=== PATIENT | female | born 1970 | race African-American/Black ===

== ENCOUNTER 2017-09-02 02:25 | Inpatient (IN) | payer MEDICAID, OTHER ==
[2017-09-02] VITALS (7 sets, daily range): BP systolic 127–171; BP diastolic 66–80
[~2017-09-02] VITALS: Ht 157.5 cm; Wt 79.4 kg
[~2017-09-02 02:25] MED LIST: ALBUTEROL INHAL ORI; AMBIEN; ATENOLOL; BENADRYL; GLUCOMETER; HYDR-523 PO; INSU3INS6; METF500T4 PO; NOVOFINE; PARO-41 PO; PREVACID PO; SITA100T11; SULF-165 PO; VENTOLIN; ZOLP10TA6
[2017-09-02 04:02] LABS: BASOPHILS % 0.5 % (0.0-2.0); EOSINOPHILS % 0.3 % (0.0-5.0); HEMATOCRIT. 33.2 % (36.0-48.0); HEMOGLOBIN. 10.8 g/dL (12.0-16.0); LYMPHOCYTES % 18.7 % (20.0-50.0); MEAN CORPUSCULAR HEMOGLOBIN 24.6 pg (28.0-32.0); MEAN CORPUSCULAR VOLUME 75.7 fL (81.0-99.0); MEAN PLATELET VOLUME 7.3 fl (7.4-10.4); MONOCYTES % 6.4 % (2.0-8.0); NEUTROPHILS % 74.1 % (40.0-76.0); PLATELET 311 x1000/uL (130-400); RED BLOOD CELL COUNT 4.39 mill/uL (4.2-5.4); RED CELL DISTRIBUTION WIDTH 17.9 % (11.6-14.6)
[2017-09-02 04:19] LABS: CARBON DIOXIDE 27 mEq/L (21-32); CHLORIDE 88 mEq/L (98-107); TROPONIN I < 0.02 ng/mL (0.00-0.04)
[2017-09-02 05:26] LABS: CLARITY URINE CLEAR (CLEAR); COLOR URINE YELLOW (YELLOW); GLUCOSE URINE NEGATIVE (NEGATIVE); KETONES URINE NEGATIVE (NEGATIVE); LEUKOCYTE ESTERASE URINE NEGATIVE (NEGATIVE); NITRITE URINE NEGATIVE (NEGATIVE); OCCULT BLOOD URINE 1+ (NEGATIVE); PROTEIN URINE 1+ (NEGATIVE); UROBILINOGEN URINE 0.2 E.U./dL (0.2-1.0)
[2017-09-02 05:34] LABS: BG BASE EXCESS 1.2 mmol/L (-2.0-2.0); BG CARBOXYHEMOGLOBIN 1.5 % (0.5-1.5); BG DEOXYHEMOGLOBIN 5.2 % (0.0-5.0); BG FRACTION INSPIRED OXYGEN 21; BG HCO3 ACT 25.9 mmol/L (22.0-26.0); BG METHEMOGLOBIN 0.3 % (0.0-1.5); BG OXYGEN SATURATION 94.7 % (92.0-98.5); BG PCO2 41.6 mmHg (35.0-45.0); BG PH 7.412 (7.350-7.450); BG PO2 80.6 mmHg (75.0-100.0); BG SAMPLE SITE RIGHT BRACHIAL; BG TOTAL HEMOGLOBIN 10.8 g/dL (12.0-18.0); BG VENT MODE ROOM AIR
[2017-09-02] MEDS ORDERED: ONDANSETRON HCL 4MG/2ML VIAL IV STA (05:46)
[2017-09-02] MEDS ORDERED: MORPHINE SULFATE 4 MG/ML CPJ (NOT FOR IM USE) IV STA (05:46)
[2017-09-02] MEDS ORDERED: MORPHINE SULFATE 10 MG/ML CPJ IV SCH (06:03)
[2017-09-02] MEDS ORDERED: LANTUSUD SUBCUT (09:36)
[2017-09-02] MEDS ORDERED: PARO40TA75 PO (09:36)
[2017-09-02] MEDS ORDERED: ZOLP10TA6 PO (09:36)
[2017-09-02] MEDS ORDERED: DIPH25CA83 PO (09:36)
[2017-09-02] MEDS ORDERED: LISI10TA5 PO (09:36)
[2017-09-02] MEDS ORDERED: AMLO10TA80 PO (09:36)
[2017-09-02] MEDS ORDERED: DEXTROSE 50% WATER 50ML SYRINGE IV PRN (10:00)
[2017-09-02] MEDS ORDERED: IPRATROPIUM/ALBUTEROL 0.5-3(2.5)MG/3ML NEB HHN PRN (10:00)
[2017-09-02] MEDS ORDERED: DEXT 5%/0.9% NACL 1,000 ML IV SCH (11:00)
[2017-09-02] MEDS: ENOXAPARIN 40MG/0.4ML SYR SUBCUT SCH (12:10)
[2017-09-02] MEDS ORDERED: BLOOD SUGAR DIAGNOSTIC STRIP TEST SCH ×2 (12:20→14:00)
[2017-09-02] MEDS: INSULIN LISPRO 100 UNITS/ML SUBCUT SCH ×3 (12:39→20:56)
[2017-09-02] MEDS ORDERED: LISINOPRIL 10MG TABLET PO SCH (13:00)
[2017-09-02] MEDS ORDERED: SODIUM CHLORIDE 0.9% 1,000 ML IV ONE (13:30)
[2017-09-02] MEDS ORDERED: DIPHENHYDRAMINE 25MG CAPSULE PO PRN (14:00)
[2017-09-02] MEDS ORDERED: ZOLPIDEM TARTRATE 5MG TABLET PO PRN (14:15)
[2017-09-02] MEDS: PAROXETINE HCL 20MG TABLET PO SCH (14:33)
[2017-09-02] MEDS: AMLODIPINE 5MG TABLET PO SCH ×2 (14:33→20:54)
[2017-09-02] MEDS: OMEPRAZOLE 20MG CAPSULE EXTENDED RELEASE PO SCH ×2 (14:36→20:54)
[2017-09-02] MEDS ORDERED: CLONIDINE 0.1MG TABLET PO PRN (15:00)
[2017-09-02] MEDS ORDERED: HYDROCODONE/ACETAMINOPHEN 10/325MG TABLET PO PRN (15:45)
[2017-09-02] MEDS: MORPHINE SULFATE 10 MG/ML CPJ IV PRN (15:49)
[2017-09-02] MEDS: BLOOD SUGAR DIAGNOSTIC STRIP TEST SCH ×2 (17:02→20:56)
[2017-09-02 18:18] LABS: CREATINE KINASE 111 IU/L (26-192); CREATINE KINASE MB FRACTION 2.2 ng/mL (0.5-3.6); TROPONIN I < 0.02 ng/mL (0.00-0.04)
[2017-09-02 19:09] LABS: *AMPHETAMINES SCREEN URINE NEGATIVE (NEGATIVE); *BARBITURATES SCREEN URINE NEGATIVE (NEGATIVE); *BENZODIAZEPINES SCREEN URINE NEGATIVE (NEGATIVE); *COCAINE SCREEN URINE NEGATIVE (NEGATIVE); CANNABINOID URINE SCREEN NEGATIVE (NEGATIVE); METHADONE URINE SCREEN NEGATIVE (NEGATIVE); PHENCYCLIDINE URINE SCREEN NEGATIVE (NEGATIVE)
[2017-09-02 19:14] LABS: OPIATES URINE SCREEN PRESUMTIVE POSITIVE (NEGATIVE)
[2017-09-02] MEDS: LISINOPRIL 20MG TABLET PO SCH (20:55)
[2017-09-02 23:49] LABS: CREATINE KINASE 102 IU/L (26-192); TROPONIN I < 0.02 ng/mL (0.00-0.04)
[2017-09-03] VITALS: BP 118/58
[2017-09-03] MEDS: MORPHINE SULFATE 10 MG/ML CPJ IV PRN (00:31)
[2017-09-03 04:00] VITALS: BP 123/66
[2017-09-03] MEDS: OMEPRAZOLE 20MG CAPSULE EXTENDED RELEASE PO SCH (06:17)
[2017-09-03] MEDS: BLOOD SUGAR DIAGNOSTIC STRIP TEST SCH ×2 (06:50→12:40)
[2017-09-03] MEDS ORDERED: REGADENOSON 0.4 MG/5 ML IV SCH (07:45)
[2017-09-03 08:00] VITALS: BP 115/56
[2017-09-03] MEDS ORDERED: REGADENOSON 0.4 MG/5 ML IV ONE (08:52)
[2017-09-03] MEDS: INSULIN LISPRO 100 UNITS/ML SUBCUT SCH ×2 (10:42→12:57)
[2017-09-03] MEDS: ENOXAPARIN 40MG/0.4ML SYR SUBCUT SCH (10:42)
[2017-09-03] MEDS: PAROXETINE HCL 20MG TABLET PO SCH (10:42)
[2017-09-03] MEDS: AMLODIPINE 5MG TABLET PO SCH (10:43)
[2017-09-03] MEDS: LISINOPRIL 20MG TABLET PO SCH (10:43)
[2017-09-03 12:00] VITALS: BP_SYST 129; BP_SYST 133; BP_SYST 134; BP_DIAS 59; BP_DIAS 66; BP_DIAS 69
[2017-09-03 16:00] VITALS: BP 162/80
[2017-09-03 17:19] VITALS: BP 134/66
== END 2017-09-03 19:30 | disposition home or self-care (01) | DRG 420 ==
LOC: ER 02:25 → 6WST 05:35 → EDBEDREQTM 05:37 → EDBEDREQ 05:37 → ENRESERV 07:00 → 6WST 10:36
PROVIDERS: ADMIT Internal Medicine; ATTEND Internal Medicine
DX: E11.649 Type 2 diabetes mellitus with hypoglycemia without coma (principal); I10 Essential (primary) hypertension; E87.1 Hypo-osmolality and hyponatremia; D50.9 Iron deficiency anemia, unspecified; F17.200 Nicotine dependence, unspecified, uncomplicated; B34.9 Viral infection, unspecified; F32.9 Major depressive disorder, single episode, unspecified; I25.10 Atherosclerotic heart disease of native coronary artery without angina pectoris; E86.0 Dehydration; G47.00 Insomnia, unspecified; Z79.899 Other long term (current) drug therapy; Z81.8 Family history of other mental and behavioral disorders; I25.2 Old myocardial infarction; Z82.49 Family history of ischemic heart disease and other diseases of the circulatory system; Z83.3 Family history of diabetes mellitus; Z91.010 Allergy to peanuts; Z91.018 Allergy to other foods
CPT/HCPCS: 36415; 36600; 70450; 71010; 72100; 72125; 78452; 80053; 80061; 80305; 81001; 82375; 82550; 82553; 82805; 82962; 83036; 83605; 84443; 84484; 85025; 93005; 93017; 93880; 93970; 96374; 96375; 99285; A9500; J1650; J1815; J2270; J2405; J2785; J7030; J7042

== ENCOUNTER 2018-08-31 21:38 | Inpatient (IN) | payer MEDICAID, OTHER ==
[~2018-08-31] VITALS: Ht 162.6 cm; Wt 69.0 kg
[~2018-08-31 21:38] MED LIST changes: -ALBUTEROL INHAL ORI; -AMBIEN; -ATENOLOL; -BENADRYL; +DIPH25CA83 PO; -GLUCOMETER; -HYDR-523 PO; -INSU3INS6; +LANTUSUD SUBCUT; -METF500T4 PO; -NOVOFINE; -PARO-41 PO; +PARO40TA75 PO; -PREVACID PO; -SITA100T11; -SULF-165 PO; -VENTOLIN; -ZOLP10TA6; +ZOLP10TA6 PO
[2018-08-31] MEDS ORDERED: DEXTROSE 50% WATER 50ML SYRINGE IV ONE ×2 (22:15→22:30)
[2018-08-31 23:31] LABS: BG BASE EXCESS 6.4 mmol/L (-2.0-2.0); BG CARBOXYHEMOGLOBIN 1.7 % (0.5-1.5); BG DEOXYHEMOGLOBIN 9.5 % (0.0-5.0); BG FRACTION INSPIRED OXYGEN 21; BG METHEMOGLOBIN 0.3 % (0.0-1.5); BG OXYGEN SATURATION 90.3 % (92.0-98.5); BG OXYHEMOGLOBIN 88.5 % (94.0-97.0); BG PCO2 44.7 mmHg (35.0-45.0); BG PH 7.459 (7.350-7.450); BG PO2 64.5 mmHg (75.0-100.0); BG SAMPLE SITE RIGHT RADIAL; BG TOTAL HEMOGLOBIN 12.5 g/dL (12.0-18.0); BG VENT MODE ROOM AIR
[2018-09-01 00:15] LABS: HEMATOCRIT. 34.1 % (36.0-48.0); HEMOGLOBIN. 11.4 g/dL (12.0-16.0); MEAN CORPUSCULAR HEMOGLOBIN 28.1 pg (28.0-32.0); MEAN CORPUSCULAR VOLUME 84.1 fL (81.0-99.0); MEAN PLATELET VOLUME 7.7 fl (7.4-10.4); PLATELET 412 x1000/uL (130-400); RED BLOOD CELL COUNT 4.05 mill/uL (4.2-5.4); RED CELL DISTRIBUTION WIDTH 14.8 % (11.6-14.6)
[2018-09-01 00:32] LABS: AMMONIA 21 uMol/L (<32); CHLORIDE 92 mEq/L (98-107); ETHANOL BLOOD < 10 mg/dL
[2018-09-01] MEDS ORDERED: ONDANSETRON HCL 4MG/2ML INJ IV STA (00:46)
[2018-09-01] MEDS ORDERED: KETOROLAC 30MG/ML VIAL IV STA (00:46)
[2018-09-01 01:35] LABS: CLARITY URINE CLOUDY (CLEAR); COLOR URINE DARK YELLOW (YELLOW); KETONES URINE 1+ (NEGATIVE); LEUKOCYTE ESTERASE URINE TRACE (NEGATIVE); NITRITE URINE NEGATIVE (NEGATIVE); OCCULT BLOOD URINE NEGATIVE (NEGATIVE); PROTEIN URINE 2+ (NEGATIVE); SPECIFIC GRAVITY URINE 1.021 (1.005-1.030)
[2018-09-01] MEDS ORDERED: CEFTRIAXONE 1 G PREMIX 50 ML IV ONE (01:45)
[2018-09-01] MEDS ORDERED: LEVOFLOXACIN 750MG PREMIX 150 ML IV ONE (01:45)
[2018-09-01 02:16] LABS: *AMPHETAMINES SCREEN URINE NEGATIVE (NEGATIVE); *BARBITURATES SCREEN URINE NEGATIVE (NEGATIVE); *BENZODIAZEPINES SCREEN URINE NEGATIVE (NEGATIVE)
[2018-09-01 02:17] LABS: *COCAINE SCREEN URINE NEGATIVE (NEGATIVE); CANNABINOID URINE SCREEN NEGATIVE (NEGATIVE); METHADONE URINE SCREEN NEGATIVE (NEGATIVE); OPIATES URINE SCREEN NEGATIVE (NEGATIVE); PHENCYCLIDINE URINE SCREEN NEGATIVE (NEGATIVE)
[2018-09-01 03:07] LABS: PLATELET ESTIMATE NORMAL
[2018-09-01] MEDS ORDERED: SODIUM CHLORIDE 0.9% 1,000 ML IV SCH (03:24)
[2018-09-01] MEDS ORDERED: SODIUM CHLORIDE 0.9% 1,000 ML IV ONE (03:27)
[2018-09-01] MEDS ORDERED: DEXTROSE 50% WATER 50ML SYRINGE IV ONE (07:43)
[2018-09-01] MEDS ORDERED: INSU100I28 SQ (10:42)
[2018-09-01] MEDS ORDERED: GABA-529 PO (10:42)
[2018-09-01] MEDS ORDERED: LISI10TA5 PO (10:53)
[2018-09-01] MEDS ORDERED: TRAZ-213 PO (10:53)
[2018-09-01] MEDS ORDERED: ZOLP5TAB8 PO (10:53)
[2018-09-01] MEDS ORDERED: LORA10TA7 PO (10:53)
[2018-09-01] MEDS ORDERED: ASPI-1159 PO (10:53)
[2018-09-01] MEDS ORDERED: ALBU18HF2 IH (10:53)
[2018-09-01] MEDS ORDERED: IBUP-2028 PO (10:53)
[2018-09-01] MEDS ORDERED: INSU100I24 SQ (10:53)
[2018-09-01] MEDS ORDERED: RANI150T7 PO (10:53)
[2018-09-01] MEDS ORDERED: OMEP40CA34 PO (10:53)
[2018-09-01] MEDS ORDERED: PARO-41 PO (10:53)
[2018-09-01] MEDS ORDERED: PARO40TA75 PO (10:53)
[2018-09-01] MEDS ORDERED: DEXTROSE 50% WATER 50ML SYRINGE IV PRN (11:45)
[2018-09-01] MEDS ORDERED: ONDANSETRON HCL 4MG/2ML INJ IV PRN (11:45)
[2018-09-01] MEDS ORDERED: ACETAMINOPHEN 325MG TABLET PO PRN (11:45)
[2018-09-01] MEDS ORDERED: DEXTROSE 10% WATER 500 ML IV SCH (12:00)
[2018-09-01 12:02] VITALS: BP 91/54
[2018-09-01] MEDS: BLOOD SUGAR DIAGNOSTIC STRIP TEST SCH ×3 (12:40→21:00)
[2018-09-01] MEDS: HYDROCODONE/ACETAMINOPHEN 5/325MG TABLET PO PRN ×2 (12:58→22:10)
[2018-09-01] MEDS: INSULIN LISPRO 100 UNITS/ML SUBCUT SCH ×3 (13:10→21:00)
[2018-09-01] MEDS ORDERED: INFLUENZA VIRUS VACCINE(AFLURIA) 0.5ML SYR IM ONE (13:30)
[2018-09-01] MEDS ORDERED: POTASSIUM CHLORIDE 20MEQ TABLET SR PO SCH (15:15)
[2018-09-01 16:39] VITALS: BP 85/53
[2018-09-01] MEDS ORDERED: SODIUM CHLORIDE 0.9% 500 ML IV NR (17:45)
[2018-09-01] MEDS: SODIUM CHLORIDE 0.9% 1,000 ML IV SCH (18:24)
[2018-09-01 20:00] VITALS: BP 120/62
[2018-09-01] MEDS ORDERED: ZOLPIDEM TARTRATE 5MG TABLET PO PRN (21:45)
[2018-09-01 22:00] VITALS: BP 117/68
[2018-09-02 04:00] VITALS: BP 126/64
[2018-09-02] MEDS: SODIUM CHLORIDE 0.9% 1,000 ML IV SCH (05:58)
[2018-09-02] MEDS ORDERED: CEFTRIAXONE 1 G PREMIX 50 ML IV SCH (06:00)
[2018-09-02 06:34] LABS: BASOPHILS % 0.7 % (0.0-2.0); EOSINOPHILS % 1.1 % (0.0-5.0); HEMATOCRIT. 30.1 % (36.0-48.0); HEMOGLOBIN. 9.8 g/dL (12.0-16.0); LYMPHOCYTES % 20.3 % (20.0-50.0); MEAN CORPUSCULAR HEMOGLOBIN 28.1 pg (28.0-32.0); MEAN CORPUSCULAR VOLUME 86.1 fL (81.0-99.0); MEAN PLATELET VOLUME 7.9 fl (7.4-10.4); MONOCYTES % 8.6 % (2.0-8.0); NEUTROPHILS % 69.3 % (40.0-76.0); PLATELET 281 x1000/uL (130-400); RED BLOOD CELL COUNT 3.49 mill/uL (4.2-5.4); RED CELL DISTRIBUTION WIDTH 14.9 % (11.6-14.6)
[2018-09-02 07:21] VITALS: BP 143/67
[2018-09-02] MEDS: BLOOD SUGAR DIAGNOSTIC STRIP TEST SCH ×3 (08:38→17:40)
[2018-09-02] MEDS: INSULIN LISPRO 100 UNITS/ML SUBCUT SCH ×3 (09:21→19:07)
[2018-09-02] MEDS: HYDROCODONE/ACETAMINOPHEN 5/325MG TABLET PO PRN ×2 (09:24→17:37)
[2018-09-02 11:47] VITALS: BP 167/87
[2018-09-02 15:24] VITALS: BP 149/70
[2018-09-02 18:31] VITALS: BP 149/70
== END 2018-09-02 21:30 | disposition home health service (06) | DRG 720 ==
LOC: ER 21:38 → 7WST 09-01 03:26 → EDBEDREQTM 09-01 03:32 → EDBEDREQDT 09-01 03:32 → EDBEDREQ 09-01 03:32 → ENRESERV 09-01 08:17
PROVIDERS: ADMIT Internal Medicine; ATTEND Internal Medicine
DX: A41.9 Sepsis, unspecified organism (principal); G93.41 Metabolic encephalopathy; N17.9 Acute kidney failure, unspecified; E11.649 Type 2 diabetes mellitus with hypoglycemia without coma; E87.8 Other disorders of electrolyte and fluid balance, not elsewhere classified; D64.9 Anemia, unspecified; E87.6 Hypokalemia; F17.210 Nicotine dependence, cigarettes, uncomplicated; I10 Essential (primary) hypertension; R29.6 Repeated falls; Z91.010 Allergy to peanuts; Z91.018 Allergy to other foods; Z79.4 Long term (current) use of insulin; Z79.899 Other long term (current) drug therapy
CPT/HCPCS: 36415; 36600; 71045; 72100; 73590; 73630; 74176; 80048; 80305; 80307; 80329; 82140; 82375; 82805; 82962; 83036; 83605; 84145; 84484; 90686; 92610; 93005; 96365; 96367; 96375; 97162; 99291; G0482; J0696; J1815; J1885; J1956; J2405; J7030; J7040

== ENCOUNTER 2020-01-20 17:05 | Inpatient (IN) | payer MEDICAID, OTHER ==
[~2020-01-20] VITALS: Ht 157.5 cm; Wt 80.7 kg
[~2020-01-20 17:05] MED LIST changes: +ALBU18HF2 IH; +AMLO10TA80 MT; +ASPI-1497 PO; +FAMO20TA8 MT; +GABA-529 PO; +INSU100I28 SQ; -LANTUSUD SUBCUT; +LORA10TA7 PO; +OMEP40CA12 PO; +P20 MT; +TRAZ-252 PO
[2020-01-20] MEDS ORDERED: KETOROLAC 60MG/2ML VIAL IM STA (22:36)
[2020-01-20] MEDS ORDERED: IPRATROPIUM BROMIDE (0.02%) 0.5MG/2.5ML NEB HHN STA (22:36)
[2020-01-20] MEDS ORDERED: PREDNISONE 20MG TABLET PO STA (22:36)
[2020-01-20] MEDS ORDERED: ALBUTEROL (0.083%) 2.5MG/3ML NEB HHN STA (22:36)
[2020-01-21] MEDS ORDERED: ALBUTEROL (0.5%) 2.5MG/0.5ML NEB HHN ONE (01:00)
[2020-01-21] MEDS ORDERED: METHYLPREDNISOLONE SOD SUCC 40 MG/ML VIAL IV ONE (01:00)
[2020-01-21 01:27] LABS: BASOPHILS % 0.4 % (0.0-2.0); CHLORIDE 83 mEq/L (98-107); EOSINOPHILS % 1.2 % (0.0-5.0); HEMATOCRIT. 35.8 % (36.0-48.0); HEMOGLOBIN. 11.6 g/dL (12.0-16.0); LYMPHOCYTES % 15.2 % (20.0-50.0); MEAN CORPUSCULAR HEMOGLOBIN 27.7 pg (28.0-32.0); MEAN CORPUSCULAR VOLUME 85.4 fL (81.0-99.0); MONOCYTES % 3.5 % (2.0-8.0); NEUTROPHILS % 79.7 % (40.0-76.0); PLATELET 363 x1000/uL (130-400); RED BLOOD CELL COUNT 4.19 mill/uL (4.2-5.4); RED CELL DISTRIBUTION WIDTH 14.3 % (11.6-14.6)
[2020-01-21] MEDS ORDERED: INSULIN LISPRO 100 UNITS/ML SUBCUT NR (09:00)
[2020-01-21] MEDS ORDERED: IPRATROPIUM/ALBUTEROL 0.5-3(2.5)MG/3ML NEB HHN PRN (09:00)
[2020-01-21] MEDS ORDERED: DEXTROSE 50% WATER 50ML SYRINGE IV PRN (09:00)
[2020-01-21] MEDS ORDERED: METHYLPREDNISOLONE SOD SUCC 40 MG/ML VIAL IV SCH (09:00)
[2020-01-21] MEDS: BLOOD SUGAR DIAGNOSTIC STRIP TEST SCH ×3 (11:15→17:15)
[2020-01-21] MEDS: INSULIN LISPRO 100 UNITS/ML SUBCUT SCH ×5 (11:29→22:40)
[2020-01-21] MEDS ORDERED: IPRATROPIUM/ALBUTEROL 0.5-3(2.5)MG/3ML NEB HHN SCH (12:00)
[2020-01-21] MEDS: KETOROLAC 30MG/ML VIAL IV PRN ×3 (12:28→22:30)
[2020-01-21] MEDS: CLONIDINE 0.1MG TABLET PO PRN (12:28)
[2020-01-21] MEDS: SODIUM CHLORIDE 0.9% 1,000 ML IV SCH (13:26)
[2020-01-21] MEDS: LOSARTAN POTASSIUM 100 MG TABLET PO SCH (13:37)
[2020-01-21] MEDS: AMLODIPINE 5MG TABLET PO SCH ×2 (13:37→21:00)
[2020-01-21] MEDS: IPRATROPIUM/ALBUTEROL 0.5-3(2.5)MG/3ML NEB HHN SCH ×2 (14:51→15:30)
[2020-01-21] MEDS ORDERED: INSULIN GLARGINE UD 100 UNITS/ML SYR SUBCUT SCH (22:00)
[2020-01-21 23:30] VITALS: BP_SYST 170; BP_SYST 172; BP_DIAS 83
[2020-01-22] MEDS: ZOLPIDEM TARTRATE 5MG TABLET PO PRN ×2 (01:07→21:49)
[2020-01-22] MEDS: IPRATROPIUM/ALBUTEROL 0.5-3(2.5)MG/3ML NEB HHN SCH ×5 (01:13→21:56)
[2020-01-22] MEDS: CLONIDINE 0.1MG TABLET PO PRN (01:20)
[2020-01-22] MEDS: INSULIN GLARGINE UD 100 UNITS/ML SYR SUBCUT SCH ×3 (01:21→21:29)
[2020-01-22] MEDS ORDERED: METH-612 PO (02:15)
[2020-01-22] MEDS ORDERED: DICL75TA5 PO (02:15)
[2020-01-22] MEDS ORDERED: CLIN300C11 PO (02:15)
[2020-01-22] MEDS ORDERED: METF-416 PO (02:15)
[2020-01-22] MEDS ORDERED: CYCL10TA7 PO (02:15)
[2020-01-22] MEDS ORDERED: HYDR12.54 PO (02:15)
[2020-01-22] MEDS ORDERED: PARO-66 PO (02:15)
[2020-01-22] MEDS ORDERED: FLUT9.9S BOTHNSTRLS (02:15)
[2020-01-22] MEDS ORDERED: CLINDAMYCIN HCL 300 MG PO SCH (02:30)
[2020-01-22] MEDS ORDERED: METHOCARBAMOL 750MG TABLET PO PRN (03:00)
[2020-01-22 04:00] VITALS: BP 144/75
[2020-01-22] MEDS: CLINDAMYCIN HCL 150MG CAPSULE PO SCH ×3 (05:36→21:26)
[2020-01-22] MEDS: CYCLOBENZAPRINE 10MG TABLET PO SCH ×3 (05:36→21:26)
[2020-01-22] MEDS: SODIUM CHLORIDE 0.9% 1,000 ML IV SCH (05:38)
[2020-01-22 05:51] LABS: CHLORIDE 90 mEq/L (98-107)
[2020-01-22 06:30] LABS: BASOPHILS % 0.2 % (0.0-2.0); HEMATOCRIT. 35.3 % (36.0-48.0); HEMOGLOBIN. 11.8 g/dL (12.0-16.0); LYMPHOCYTES % 16.4 % (20.0-50.0); MEAN CORPUSCULAR VOLUME 83.7 fL (81.0-99.0); MEAN PLATELET VOLUME 8.1 fl (7.4-10.4); MONOCYTES % 7.4 % (2.0-8.0); PLATELET 321 x1000/uL (130-400); RED BLOOD CELL COUNT 4.22 mill/uL (4.2-5.4); RED CELL DISTRIBUTION WIDTH 14.1 % (11.6-14.6)
[2020-01-22] MEDS: BLOOD SUGAR DIAGNOSTIC STRIP TEST SCH ×4 (07:46→21:14)
[2020-01-22 07:50] LABS: CLARITY URINE CLEAR (CLEAR); COLOR URINE YELLOW (YELLOW); KETONES URINE NEGATIVE (NEGATIVE); LEUKOCYTE ESTERASE URINE NEGATIVE (NEGATIVE); NITRITE URINE NEGATIVE (NEGATIVE); OCCULT BLOOD URINE 1+ (NEGATIVE); PH URINE 6.5 (4.5-8.0); PROTEIN URINE 2+ (NEGATIVE); SPECIFIC GRAVITY URINE 1.015 (1.005-1.030); UROBILINOGEN URINE 0.2 E.U./dL (0.2-1.0)
[2020-01-22 08:00] VITALS: BP 141/69
[2020-01-22 08:04] LABS: *AMPHETAMINES SCREEN URINE NEGATIVE (NEGATIVE); *BARBITURATES SCREEN URINE NEGATIVE (NEGATIVE); *BENZODIAZEPINES SCREEN URINE NEGATIVE (NEGATIVE); *COCAINE SCREEN URINE NEGATIVE (NEGATIVE); CANNABINOID URINE SCREEN NEGATIVE (NEGATIVE); METHADONE URINE SCREEN NEGATIVE (NEGATIVE)
[2020-01-22 08:05] LABS: OPIATES URINE SCREEN NEGATIVE (NEGATIVE); PHENCYCLIDINE URINE SCREEN NEGATIVE (NEGATIVE)
[2020-01-22] MEDS: INSULIN LISPRO 100 UNITS/ML SUBCUT SCH ×7 (08:45→21:00)
[2020-01-22] MEDS: ASPIRIN 81MG EC TABLET PO SCH (08:47)
[2020-01-22] MEDS: LORATADINE 10MG TABLET PO SCH (08:47)
[2020-01-22] MEDS: FLUTICASONE PROPIONATE 50MCG/SPRAY BOTTLE BOTHNSTRLS SCH (08:47)
[2020-01-22] MEDS: FAMOTIDINE 20MG/2ML VIAL IV SCH ×2 (08:47→21:28)
[2020-01-22] MEDS: METFORMIN HCL 500MG TABLET PO SCH ×2 (08:47→18:05)
[2020-01-22] MEDS: LOSARTAN POTASSIUM 100 MG TABLET PO SCH (08:54)
[2020-01-22] MEDS: HYDRALAZINE HCL 100MG TABLET PO SCH ×2 (08:55→21:27)
[2020-01-22] MEDS ORDERED: MEDICATION NOT ON FORMULARY EA (Hydrochlorothiazide 12.5 MG) PO SCH (09:00)
[2020-01-22] MEDS ORDERED: MEDICATION NOT ON FORMULARY EA (Fluticasone Propionate (Flonase Allergy Relief) 2 SPR) BOTHNSTRLS SCH (09:00)
[2020-01-22] MEDS ORDERED: MEDICATION NOT ON FORMULARY EA (Paroxetine Hcl 1 TAB) PO SCH (09:00)
[2020-01-22] MEDS: GABAPENTIN 100MG CAPSULE PO SCH ×3 (09:07→18:04)
[2020-01-22] MEDS: HYDROCHLOROTHIAZIDE 12.5MG CAPSULE PO SCH (09:08)
[2020-01-22] MEDS: PAROXETINE HCL 10MG TABLET PO SCH (09:08)
[2020-01-22] MEDS: DICLOFENAC SODIUM 75MG DR (EC) TABLET PO SCH ×2 (09:08→18:05)
[2020-01-22] MEDS: AMLODIPINE 5MG TABLET PO SCH ×2 (09:08→21:27)
[2020-01-22 12:00] VITALS: BP 129/64
[2020-01-22 15:40] VITALS: BP 140/63
[2020-01-22] MEDS ORDERED: CLAR10 PO (16:18)
[2020-01-22] MEDS ORDERED: INSU100I13 SQ (16:18)
[2020-01-22] MEDS ORDERED: INSU100I28 SQ (16:18)
[2020-01-22] MEDS ORDERED: HYDR100T26 PO (16:18)
[2020-01-22] MEDS ORDERED: LOSA100T3 PO (16:18)
[2020-01-22] MEDS ORDERED: MONT10TA21 PO (16:18)
[2020-01-22] MEDS ORDERED: MONTELUKAST SODIUM 10MG TABLET PO SCH (17:00)
[2020-01-22 20:00] VITALS: BP 110/61
[2020-01-22] MEDS ORDERED: TRAZODONE HCL 50MG TABLET PO SCH (21:00)
[2020-01-22] MEDS ORDERED: MEDICATION NOT ON FORMULARY EA (Trazodone Hcl 1 TAB) PO SCH (21:00)
[2020-01-22] MEDS ORDERED: PAROXETINE HCL 10MG TABLET PO SCH (21:00)
[2020-01-22] MEDS ORDERED: PAROXETINE HCL 20 MG PO SCH (21:00)
[2020-01-22] MEDS: KETOROLAC 30MG/ML VIAL IV PRN (21:49)
[2020-01-22] MEDS: BUDESONIDE 0.5MG/2ML NEB HHN SCH (21:50)
[2020-01-23] VITALS: BP 108/65
[2020-01-23] MEDS: IPRATROPIUM/ALBUTEROL 0.5-3(2.5)MG/3ML NEB HHN SCH ×3 (02:40→13:47)
[2020-01-23] MEDS: SODIUM CHLORIDE 0.9% 1,000 ML IV SCH (03:30)
[2020-01-23 04:00] VITALS: BP 171/97
[2020-01-23] MEDS: CLINDAMYCIN HCL 150MG CAPSULE PO SCH (05:51)
[2020-01-23] MEDS: CYCLOBENZAPRINE 10MG TABLET PO SCH (05:51)
[2020-01-23] MEDS: CLONIDINE 0.1MG TABLET PO PRN (06:35)
[2020-01-23] MEDS: BLOOD SUGAR DIAGNOSTIC STRIP TEST SCH ×2 (07:40→12:40)
[2020-01-23] MEDS: INSULIN LISPRO 100 UNITS/ML SUBCUT SCH ×4 (07:40→12:52)
[2020-01-23 08:00] VITALS: BP 135/70
[2020-01-23] MEDS: BUDESONIDE 0.5MG/2ML NEB HHN SCH (08:18)
[2020-01-23] MEDS: DICLOFENAC SODIUM 75MG DR (EC) TABLET PO SCH (08:45)
[2020-01-23] MEDS: HYDRALAZINE HCL 100MG TABLET PO SCH (08:45)
[2020-01-23] MEDS: METFORMIN HCL 500MG TABLET PO SCH (08:45)
[2020-01-23] MEDS: HYDROCHLOROTHIAZIDE 12.5MG CAPSULE PO SCH (08:45)
[2020-01-23] MEDS: LORATADINE 10MG TABLET PO SCH (08:46)
[2020-01-23] MEDS: FAMOTIDINE 20MG/2ML VIAL IV SCH (08:46)
[2020-01-23] MEDS: PAROXETINE HCL 10MG TABLET PO SCH (08:46)
[2020-01-23] MEDS: LOSARTAN POTASSIUM 100 MG TABLET PO SCH (08:46)
[2020-01-23] MEDS: GABAPENTIN 100MG CAPSULE PO SCH (08:46)
[2020-01-23] MEDS: FLUTICASONE PROPIONATE 50MCG/SPRAY BOTTLE BOTHNSTRLS SCH (08:51)
[2020-01-23] MEDS: ASPIRIN 81MG EC TABLET PO SCH (08:51)
[2020-01-23] MEDS: AMLODIPINE 5MG TABLET PO SCH (08:52)
[2020-01-23] MEDS: INSULIN GLARGINE UD 100 UNITS/ML SYR SUBCUT SCH (11:02)
[2020-01-23 12:00] VITALS: BP 115/76
[2020-01-23 12:42] VITALS: BP 115/76
== END 2020-01-23 16:00 | disposition home or self-care (01) | DRG 133 ==
LOC: ER 17:05 → ENRESERV 01-21 20:38 → 7WST 01-21 23:32
PROVIDERS: ADMIT Internal Medicine; ATTEND Internal Medicine
DX: J96.00 Acute respiratory failure, unspecified whether with hypoxia or hypercapnia (principal); E11.42 Type 2 diabetes mellitus with diabetic polyneuropathy; J45.901 Unspecified asthma with (acute) exacerbation; E11.65 Type 2 diabetes mellitus with hyperglycemia; E87.1 Hypo-osmolality and hyponatremia; E87.8 Other disorders of electrolyte and fluid balance, not elsewhere classified; D64.9 Anemia, unspecified; E66.9 Obesity, unspecified; F17.210 Nicotine dependence, cigarettes, uncomplicated; J31.0 Chronic rhinitis; F41.9 Anxiety disorder, unspecified; I10 Essential (primary) hypertension; Z86.73 Personal history of transient ischemic attack (TIA), and cerebral infarction without residual deficits; Z68.32 Body mass index [BMI] 32.0-32.9, adult; Z79.899 Other long term (current) drug therapy; Z79.82 Long term (current) use of aspirin; Z71.89 Other specified counseling; Z71.6 Tobacco abuse counseling; Z91.018 Allergy to other foods
CPT/HCPCS: 36415; 71045; 80048; 80053; 80305; 81003; 82962; 83036; 83880; 84145; 84484; 85025; 93005; 94640; 94644; 96365; 99285; J1815; J1885; J2920; J3490; J7512; J7626

== ENCOUNTER 2021-04-08 19:53 | Emergency (ER) | payer MEDICAID, OTHER ==
[~2021-04-08] VITALS: Ht 157.5 cm; Wt 75.0 kg
[~2021-04-08 19:53] MED LIST changes: +CLAR10 PO; +CLIN300C12 PO; +CYCL10TA7 PO; +DICL75TA5 PO; +FLUT9.9S BOTHNSTRLS; +HYDR100T26 PO; +INSU100I13 SQ; +LOSA100T3 PO; +METF-416 PO; +METH-774 PO; +MONT10TA21 PO; -P20 MT; +PARO-66 PO
[2021-04-08] MEDS ORDERED: ACETAMINOPHEN WITH CODEINE 300/30MG TABLET PO ONE (21:15)
[2021-04-08] MEDS ORDERED: HYDR-4346 MT ×3 (22:01→23:12)
[2021-04-08 23:19] VITALS: BP 114/71
== END 2021-04-08 23:22 | disposition home or self-care (01) ==
LOC: ER 19:53
DX: M79.602 Pain in left arm (principal); J45.909 Unspecified asthma, uncomplicated; E11.9 Type 2 diabetes mellitus without complications; I10 Essential (primary) hypertension; Z79.899 Other long term (current) drug therapy
CPT/HCPCS: 29125; 71045; 73030; 73060; 99284; A4565; L3670

== ENCOUNTER 2021-04-15 16:00 | Emergency (ER) | payer MEDICAID ==
[~2021-04-15] VITALS: Ht 165.1 cm; Wt 70.0 kg
[~2021-04-15 16:00] MED LIST changes: +HYDR-4346 MT
[2021-04-15] MEDS ORDERED: OXYCODONE HCL/ACETAMINOPHEN 5/325MG TABLET PO ONE (16:45)
[2021-04-15] MEDS ORDERED: PSYL0.4C2 MT (16:51)
[2021-04-15] MEDS ORDERED: HYDR-4001 MT (16:51)
[2021-04-15 17:11] VITALS: BP 133/82
== END 2021-04-15 17:25 | disposition home or self-care (01) ==
LOC: ER 16:00
DX: Z76.0 Encounter for issue of repeat prescription (principal); S42.352A Displaced comminuted fracture of shaft of humerus, left arm, initial encounter for closed fracture; X58.XXXA Exposure to other specified factors, initial encounter; Y93.9 Activity, unspecified; Y92.9 Unspecified place or not applicable; I10 Essential (primary) hypertension; E11.9 Type 2 diabetes mellitus without complications; J45.909 Unspecified asthma, uncomplicated; Z79.899 Other long term (current) drug therapy; Z79.51 Long term (current) use of inhaled steroids
CPT/HCPCS: 99283

== ENCOUNTER 2022-04-24 15:07 | Inpatient (IN) | payer MEDICAID, OTHER ==
[~2022-04-24] VITALS: Ht 157.5 cm; Wt 90.7 kg
[~2022-04-24 15:07] MED LIST changes: +CLIN-194 PO; -CLIN300C12 PO; +CYCL10TA21 PO; -CYCL10TA7 PO; +HYDR-4001 MT; -OMEP40CA12 PO; +OMEP40CA20 PO; +PSYL0.4C2 MT
[2022-04-24 16:18] LABS: BASOPHILS % 0.8 % (0.0-2.0); EOSINOPHILS % 0.5 % (0.0-5.0); HEMATOCRIT. 30.4 % (36.0-48.0); HEMOGLOBIN. 9.3 g/dL (12.0-16.0); MEAN CORPUSCULAR HEMOGLOBIN 27.2 pg (28.0-32.0); MEAN CORPUSCULAR VOLUME 88.7 fL (81.0-99.0); MEAN PLATELET VOLUME 7.3 fl (7.4-10.4); MONOCYTES % 7.2 % (2.0-8.0); NEUTROPHILS % 73.5 % (40.0-76.0); PLATELET 463 x1000/uL (130-400); RED BLOOD CELL COUNT 3.43 mill/uL (4.2-5.4); RED CELL DISTRIBUTION WIDTH 14.5 % (11.6-14.6)
[2022-04-24 16:22] LABS: CHLORIDE 91 mEq/L (98-107)
[2022-04-24] MEDS ORDERED: ALBUTEROL (0.083%) 2.5MG/3ML NEB HHN ONE (17:00)
[2022-04-24] MEDS ORDERED: METHYLPREDNISOLONE SOD SUCC 125 MG/2 ML VIAL IV ONE (17:00)
[2022-04-24] MEDS ORDERED: SODIUM CHLORIDE 0.9% 1,000 ML IV ONE (17:00)
[2022-04-24] MEDS ORDERED: HYDROCODONE/ACETAMINOPHEN 5/325MG TABLET PO ONE (17:45)
[2022-04-24 21:36] VITALS: BP 117/75
[2022-04-24] MEDS ORDERED: BUDESONIDE 0.5MG/2ML NEB HHN SCH (23:15)
[2022-04-24] MEDS ORDERED: ZOLPIDEM TARTRATE 5MG TABLET PO PRN (23:15)
[2022-04-24] MEDS ORDERED: POTASSIUM CHLORIDE 20MEQ TABLET SR PO NR (23:15)
[2022-04-24] MEDS ORDERED: IPRATROPIUM/ALBUTEROL 0.5-3(2.5)MG/3ML NEB HHN PRN (23:15)
[2022-04-25] VITALS (7 sets, daily range): BP systolic 124–151; BP diastolic 64–100
[2022-04-25] MEDS: HYDROCODONE/ACETAMINOPHEN 5/325MG TABLET PO PRN ×2 (00:10→18:39)
[2022-04-25] MEDS ORDERED: METHYLPREDNISOLONE SOD SUCC 40 MG/ML VIAL IV SCH (06:00)
[2022-04-25] MEDS: BLOOD SUGAR DIAGNOSTIC STRIP TEST SCH ×4 (06:23→21:00)
[2022-04-25 06:56] LABS: HEMATOCRIT. 28.5 % (36.0-48.0); HEMOGLOBIN. 9.2 g/dL (12.0-16.0); MEAN CORPUSCULAR HEMOGLOBIN 27.9 pg (28.0-32.0); MEAN CORPUSCULAR VOLUME 86.4 fL (81.0-99.0); MEAN PLATELET VOLUME 7.7 fl (7.4-10.4); PLATELET 556 x1000/uL (130-400); RED CELL DISTRIBUTION WIDTH 14.2 % (11.6-14.6)
[2022-04-25] MEDS: PANTOPRAZOLE 40MG DR TABLET PO SCH (07:12)
[2022-04-25] MEDS: INSULIN LISPRO 100 UNITS/ML SUBCUT SCH ×4 (07:13→21:54)
[2022-04-25] MEDS: AMLODIPINE 10MG TABLET PO SCH (08:59)
[2022-04-25] MEDS ORDERED: NALOXONE HCL 0.4MG/ML VIAL IV PRN (12:15)
[2022-04-25] MEDS ORDERED: CEFTRIAXONE 1 G PREMIX 50 ML IV SCH (12:15)
[2022-04-25 13:06] LABS: FERRITIN 239 ng/mL (10-291)
[2022-04-25] MEDS ORDERED: IPRATROPIUM/ALBUTEROL 0.5-3(2.5)MG/3ML NEB HHN PRN (14:00)
[2022-04-25 14:28] LABS: VITAMIN B12 SERUM >2000 pg/mL pg/mL (211-911)
[2022-04-25] MEDS: PAROXETINE HCL 10MG TABLET PO SCH (14:45)
[2022-04-25] MEDS: LORATADINE 10MG TABLET PO SCH (14:45)
[2022-04-25] MEDS: GABAPENTIN 100MG CAPSULE PO SCH ×2 (14:45→17:42)
[2022-04-25] MEDS: INSULIN GLARGINE 100 UNITS/ML SUBCUT SCH ×2 (14:46→21:55)
[2022-04-25] MEDS: CEFTRIAXONE 1,000 MG in DEXTROSE 5% WATER 50 ML IV SCH (14:48)
[2022-04-25] MEDS: HYDRALAZINE HCL 100MG TABLET PO SCH ×2 (15:45→21:53)
[2022-04-25] MEDS: MONTELUKAST SODIUM 10MG TABLET PO SCH (17:42)
[2022-04-25] MEDS: AZITHROMYCIN 500 MG in DEXT 5% WATER 250 ML IV SCH (17:42)
[2022-04-25] MEDS: BENZONATATE 100MG CAPSULE PO PRN (18:38)
[2022-04-25] MEDS: TRAZODONE HCL 50MG TABLET PO SCH (21:53)
[2022-04-25] MEDS: GUAIFENESIN 600MG ER TABLET PO SCH (21:53)
[2022-04-25] MEDS: SODIUM CHLORIDE 0.9% 1,000 ML IV SCH (21:56)
[2022-04-25] MEDS: IPRATROPIUM/ALBUTEROL 0.5-3(2.5)MG/3ML NEB HHN SCH (22:04)
[2022-04-25] MEDS: BUDESONIDE 0.5MG/2ML NEB HHN SCH (22:05)
[2022-04-26] MEDS: IPRATROPIUM/ALBUTEROL 0.5-3(2.5)MG/3ML NEB HHN SCH ×4 (01:52→21:18)
[2022-04-26] MEDS: PANTOPRAZOLE 40MG DR TABLET PO SCH (05:52)
[2022-04-26] MEDS: SODIUM CHLORIDE 0.9% 1,000 ML IV SCH ×2 (05:52→21:28)
[2022-04-26] MEDS: BLOOD SUGAR DIAGNOSTIC STRIP TEST SCH ×4 (05:53→21:26)
[2022-04-26] MEDS: HYDROCODONE/ACETAMINOPHEN 5/325MG TABLET PO PRN ×2 (06:00→18:23)
[2022-04-26] MEDS ORDERED: OMEPRAZOLE 20MG CAPSULE EXTENDED RELEASE PO SCH (07:20)
[2022-04-26] MEDS: INSULIN LISPRO 100 UNITS/ML SUBCUT SCH ×4 (07:41→21:27)
[2022-04-26 08:00] VITALS: BP 119/64
[2022-04-26] MEDS: HYDRALAZINE HCL 100MG TABLET PO SCH ×2 (09:00→21:00)
[2022-04-26] MEDS: AMLODIPINE 10MG TABLET PO SCH (09:00)
[2022-04-26] MEDS: BUDESONIDE 0.5MG/2ML NEB HHN SCH ×2 (09:31→21:16)
[2022-04-26] MEDS: GABAPENTIN 100MG CAPSULE PO SCH ×3 (09:37→18:22)
[2022-04-26] MEDS: LORATADINE 10MG TABLET PO SCH (09:37)
[2022-04-26] MEDS: PAROXETINE HCL 10MG TABLET PO SCH (09:37)
[2022-04-26] MEDS: ASPIRIN 81MG EC TABLET PO SCH (09:37)
[2022-04-26] MEDS: BENZONATATE 100MG CAPSULE PO PRN (09:37)
[2022-04-26] MEDS: INSULIN GLARGINE 100 UNITS/ML SUBCUT SCH ×2 (09:38→21:27)
[2022-04-26] MEDS: GUAIFENESIN 600MG ER TABLET PO SCH ×2 (09:38→21:26)
[2022-04-26 10:06] LABS: HEMATOCRIT. 24.8 % (36.0-48.0); HEMOGLOBIN. 7.8 g/dL (12.0-16.0); MEAN CORPUSCULAR HEMOGLOBIN 27.6 pg (28.0-32.0); MEAN CORPUSCULAR VOLUME 88.1 fL (81.0-99.0); MEAN PLATELET VOLUME 7.8 fl (7.4-10.4); PLATELET 516 x1000/uL (130-400); RED BLOOD CELL COUNT 2.82 mill/uL (4.2-5.4)
[2022-04-26 12:00] VITALS: BP 102/50
[2022-04-26 12:07] LABS: PLATELET ESTIMATE INCREASED
[2022-04-26 13:42] LABS: PLATELET ESTIMATE INCREASED
[2022-04-26] MEDS: CEFTRIAXONE 1,000 MG in DEXTROSE 5% WATER 50 ML IV SCH (14:59)
[2022-04-26 16:00] VITALS: BP 110/50
[2022-04-26] MEDS: AZITHROMYCIN 500 MG in DEXT 5% WATER 250 ML IV SCH (16:35)
[2022-04-26] MEDS: MONTELUKAST SODIUM 10MG TABLET PO SCH (18:22)
[2022-04-26 20:00] VITALS: BP 102/59
[2022-04-26] MEDS: TRAZODONE HCL 50MG TABLET PO SCH (21:26)
[2022-04-27] VITALS: BP 111/62
[2022-04-27] MEDS: HYDROCODONE/ACETAMINOPHEN 5/325MG TABLET PO PRN ×3 (00:25→18:16)
[2022-04-27] MEDS: IPRATROPIUM/ALBUTEROL 0.5-3(2.5)MG/3ML NEB HHN SCH ×4 (03:09→20:51)
[2022-04-27 04:00] VITALS: BP_SYST 109; BP_SYST 127; BP_DIAS 60; BP_DIAS 62
[2022-04-27] MEDS: BLOOD SUGAR DIAGNOSTIC STRIP TEST SCH ×4 (06:26→21:51)
[2022-04-27] MEDS: INSULIN LISPRO 100 UNITS/ML SUBCUT SCH ×4 (07:29→21:00)
[2022-04-27 08:00] VITALS: BP 120/53
[2022-04-27 08:10] LABS: EOSINOPHILS % 0.2 % (0.0-5.0); HEMATOCRIT. 23.2 % (36.0-48.0); HEMOGLOBIN. 7.3 g/dL (12.0-16.0); LYMPHOCYTES % 16.7 % (20.0-50.0); MEAN CORPUSCULAR HEMOGLOBIN 28.1 pg (28.0-32.0); MEAN CORPUSCULAR VOLUME 89.9 fL (81.0-99.0); MEAN PLATELET VOLUME 8.1 fl (7.4-10.4); MONOCYTES % 6.9 % (2.0-8.0); NEUTROPHILS % 75.2 % (40.0-76.0); PLATELET 188 x1000/uL (130-400); RED BLOOD CELL COUNT 2.58 mill/uL (4.2-5.4); RED CELL DISTRIBUTION WIDTH 14.5 % (11.6-14.6)
[2022-04-27] MEDS: ASPIRIN 81MG EC TABLET PO SCH (08:20)
[2022-04-27] MEDS: GUAIFENESIN 600MG ER TABLET PO SCH ×2 (08:20→21:21)
[2022-04-27] MEDS: PAROXETINE HCL 10MG TABLET PO SCH (08:20)
[2022-04-27] MEDS: AMLODIPINE 10MG TABLET PO SCH (08:21)
[2022-04-27] MEDS: LORATADINE 10MG TABLET PO SCH (08:23)
[2022-04-27] MEDS: GABAPENTIN 100MG CAPSULE PO SCH ×3 (08:24→18:16)
[2022-04-27] MEDS: BUDESONIDE 0.5MG/2ML NEB HHN SCH ×2 (09:10→20:51)
[2022-04-27] MEDS: HYDRALAZINE HCL 100MG TABLET PO SCH ×2 (09:39→21:21)
[2022-04-27 12:00] VITALS: BP 139/74
[2022-04-27] MEDS: INSULIN GLARGINE 100 UNITS/ML SUBCUT SCH ×2 (12:35→21:22)
[2022-04-27] MEDS: CEFTRIAXONE 1,000 MG in DEXTROSE 5% WATER 50 ML IV SCH (13:45)
[2022-04-27] MEDS: AZITHROMYCIN 500 MG in DEXT 5% WATER 250 ML IV SCH (14:57)
[2022-04-27 16:00] VITALS: BP 106/64
[2022-04-27] MEDS: MONTELUKAST SODIUM 10MG TABLET PO SCH (18:16)
[2022-04-27 20:00] VITALS: BP 130/61
[2022-04-27] MEDS: TRAZODONE HCL 50MG TABLET PO SCH (21:21)
[2022-04-28] VITALS (9 sets, daily range): BP systolic 95–124; BP diastolic 44–66
[2022-04-28] MEDS: IPRATROPIUM/ALBUTEROL 0.5-3(2.5)MG/3ML NEB HHN SCH ×2 (02:31→08:16)
[2022-04-28] MEDS: DEXTROSE 50% WATER 50ML SYRINGE IV PRN ×2 (05:49→22:18)
[2022-04-28] MEDS: BLOOD SUGAR DIAGNOSTIC STRIP TEST SCH ×4 (05:49→21:20)
[2022-04-28 05:55] LABS: HEMATOCRIT. 22.5 % (36.0-48.0); HEMOGLOBIN. 7.3 g/dL (12.0-16.0); MEAN CORPUSCULAR HEMOGLOBIN 27.9 pg (28.0-32.0); MEAN CORPUSCULAR VOLUME 86.1 fL (81.0-99.0); MEAN PLATELET VOLUME 7.7 fl (7.4-10.4); PLATELET 381 x1000/uL (130-400); RED BLOOD CELL COUNT 2.61 mill/uL (4.2-5.4); RED CELL DISTRIBUTION WIDTH 14.1 % (11.6-14.6)
[2022-04-28] MEDS: INSULIN LISPRO 100 UNITS/ML SUBCUT SCH ×4 (07:43→21:00)
[2022-04-28] MEDS: BUDESONIDE 0.5MG/2ML NEB HHN SCH (08:16)
[2022-04-28] MEDS: AMLODIPINE 10MG TABLET PO SCH (09:09)
[2022-04-28] MEDS: GABAPENTIN 100MG CAPSULE PO SCH ×3 (09:09→17:41)
[2022-04-28] MEDS: HYDRALAZINE HCL 100MG TABLET PO SCH ×2 (09:10→21:00)
[2022-04-28] MEDS: LORATADINE 10MG TABLET PO SCH (09:10)
[2022-04-28] MEDS: PAROXETINE HCL 10MG TABLET PO SCH (09:10)
[2022-04-28] MEDS: HYDROCODONE/ACETAMINOPHEN 5/325MG TABLET PO PRN (09:11)
[2022-04-28] MEDS: GUAIFENESIN 600MG ER TABLET PO SCH ×2 (09:11→21:00)
[2022-04-28] MEDS: INSULIN GLARGINE 100 UNITS/ML SUBCUT SCH ×2 (10:50→21:20)
[2022-04-28] MEDS ORDERED: MAGNESIUM 2 G PREMIX 50 ML IV NR (12:00)
[2022-04-28 12:32] LABS: PLATELET ESTIMATE NORMAL
[2022-04-28 12:44] LABS: PHOSPHORUS 3.6 mg/dL (2.5-4.9)
[2022-04-28] MEDS ORDERED: SODIUM CHLORIDE 0.9% 1,000 ML IV SCH (14:00)
[2022-04-28] MEDS: PANTOPRAZOLE SODIUM 40 MG/VIAL IV SCH (14:38)
[2022-04-28] MEDS: CEFTRIAXONE 1,000 MG in DEXTROSE 5% WATER 50 ML IV SCH ×2 (16:37→17:00)
[2022-04-28 16:40] LABS: INR 1.1; PROTHROMBIN TIME 11.9 sec (9.6-11.0)
[2022-04-28] MEDS: AZITHROMYCIN 500 MG in DEXT 5% WATER 250 ML IV SCH ×2 (16:43→17:27)
[2022-04-28] MEDS: MONTELUKAST SODIUM 10MG TABLET PO SCH (17:41)
[2022-04-28 19:18] LABS: HEMATOCRIT 21.1 % (36.0-48.0); MEAN CORPUSCULAR HEMOGLOBIN 28.1 pg (28.0-32.0); MEAN CORPUSCULAR VOLUME 87.9 fL (81.0-99.0); PLATELET 345 x1000/uL (130-400); RED CELL DISTRIBUTION WIDTH 14.2 % (11.6-14.6)
[2022-04-28 19:39] LABS: HEMOGLOBIN 6.7 g/dL (12.0-16.0)
[2022-04-28] MEDS: TRAZODONE HCL 50MG TABLET PO SCH (21:00)
[2022-04-29] VITALS: BP 124/66
[2022-04-29] MEDS: PANTOPRAZOLE SODIUM 40 MG/VIAL IV SCH ×3 (00:26→22:06)
[2022-04-29] MEDS: MORPHINE SULFATE 2 MG/ML CPJ (NOT FOR IM USE) IV PRN ×2 (00:27→22:07)
[2022-04-29] MEDS: DEXT 5%/0.9% NACL 1,000 ML IV SCH ×2 (00:27→14:09)
[2022-04-29] MEDS: DEXTROSE 50% WATER 50ML SYRINGE IV PRN ×3 (00:44→10:14)
[2022-04-29] MEDS: IPRATROPIUM/ALBUTEROL 0.5-3(2.5)MG/3ML NEB HHN SCH ×3 (01:52→15:51)
[2022-04-29 02:35] LABS: HEMATOCRIT 26.2 % (36.0-48.0); HEMOGLOBIN 8.7 g/dL (12.0-16.0)
[2022-04-29 04:00] VITALS: BP 145/68
[2022-04-29] MEDS: BLOOD SUGAR DIAGNOSTIC STRIP TEST SCH ×4 (06:35→21:00)
[2022-04-29] MEDS: INSULIN LISPRO 100 UNITS/ML SUBCUT SCH ×4 (07:44→21:00)
[2022-04-29 08:10] LABS: HEMATOCRIT. 27.3 % (36.0-48.0); HEMOGLOBIN. 8.9 g/dL (12.0-16.0); MEAN CORPUSCULAR HEMOGLOBIN 28.7 pg (28.0-32.0); MEAN CORPUSCULAR VOLUME 88.3 fL (81.0-99.0); MEAN PLATELET VOLUME 8.1 fl (7.4-10.4); PLATELET 376 x1000/uL (130-400); RED BLOOD CELL COUNT 3.09 mill/uL (4.2-5.4); RED CELL DISTRIBUTION WIDTH 14.8 % (11.6-14.6)
[2022-04-29 08:20] VITALS: BP 125/84
[2022-04-29] MEDS: GUAIFENESIN 600MG ER TABLET PO SCH ×2 (09:44→22:07)
[2022-04-29] MEDS: AMLODIPINE 10MG TABLET PO SCH (09:44)
[2022-04-29] MEDS: HYDRALAZINE HCL 100MG TABLET PO SCH ×2 (09:44→22:07)
[2022-04-29] MEDS: LORATADINE 10MG TABLET PO SCH (09:45)
[2022-04-29] MEDS: PAROXETINE HCL 10MG TABLET PO SCH (09:45)
[2022-04-29] MEDS: INSULIN GLARGINE 100 UNITS/ML SUBCUT SCH (09:46)
[2022-04-29] MEDS: GABAPENTIN 100MG CAPSULE PO SCH ×3 (09:49→18:41)
[2022-04-29 12:00] VITALS: BP 143/75
[2022-04-29] MEDS: HYDROCODONE/ACETAMINOPHEN 5/325MG TABLET PO PRN (15:43)
[2022-04-29 16:00] VITALS: BP 121/71
[2022-04-29] MEDS: CEFTRIAXONE 1,000 MG in DEXTROSE 5% WATER 50 ML IV SCH (17:35)
[2022-04-29] MEDS: AZITHROMYCIN 500 MG in DEXT 5% WATER 250 ML IV SCH (17:35)
[2022-04-29] MEDS: MONTELUKAST SODIUM 10MG TABLET PO SCH (18:41)
[2022-04-29 18:44] LABS: PLATELET ESTIMATE NORMAL
[2022-04-29 20:00] VITALS: BP 124/58
[2022-04-29] MEDS: TRAZODONE HCL 50MG TABLET PO SCH (21:00)
[2022-04-30] VITALS (7 sets, daily range): BP systolic 111–128; BP diastolic 56–81
[2022-04-30] MEDS: DEXTROSE 50% WATER 50ML SYRINGE IV PRN ×3 (04:51→22:18)
[2022-04-30] MEDS: IPRATROPIUM/ALBUTEROL 0.5-3(2.5)MG/3ML NEB HHN SCH ×4 (05:14→20:16)
[2022-04-30] MEDS: DEXT 5%/0.9% NACL 1,000 ML IV SCH ×2 (05:53→21:33)
[2022-04-30] MEDS: BLOOD SUGAR DIAGNOSTIC STRIP TEST SCH ×5 (06:20→23:54)
[2022-04-30 07:00] LABS: BASOPHILS % 0.1 % (0.0-2.0); EOSINOPHILS % 0.8 % (0.0-5.0); HEMATOCRIT. 27.1 % (36.0-48.0); HEMOGLOBIN. 8.8 g/dL (12.0-16.0); LYMPHOCYTES % 8.5 % (20.0-50.0); MEAN CORPUSCULAR VOLUME 86.6 fL (81.0-99.0); MEAN PLATELET VOLUME 8.1 fl (7.4-10.4); MONOCYTES % 7.2 % (2.0-8.0); NEUTROPHILS % 83.4 % (40.0-76.0); PLATELET 429 x1000/uL (130-400); RED BLOOD CELL COUNT 3.12 mill/uL (4.2-5.4); RED CELL DISTRIBUTION WIDTH 14.9 % (11.6-14.6)
[2022-04-30] MEDS: INSULIN LISPRO 100 UNITS/ML SUBCUT SCH ×5 (07:50→23:56)
[2022-04-30] MEDS: PANTOPRAZOLE SODIUM 40 MG/VIAL IV SCH ×2 (09:20→21:34)
[2022-04-30] MEDS: AMLODIPINE 10MG TABLET PO SCH (09:20)
[2022-04-30] MEDS: GUAIFENESIN 600MG ER TABLET PO SCH ×2 (09:20→21:33)
[2022-04-30] MEDS: LORATADINE 10MG TABLET PO SCH (09:20)
[2022-04-30] MEDS: GABAPENTIN 100MG CAPSULE PO SCH ×3 (09:20→16:41)
[2022-04-30] MEDS: HYDRALAZINE HCL 100MG TABLET PO SCH ×2 (09:20→21:33)
[2022-04-30] MEDS: PAROXETINE HCL 10MG TABLET PO SCH (09:21)
[2022-04-30] MEDS ORDERED: SODIUM BICARBONATE 4% (2.4MEQ) 5ML VIAL IV ONE (09:38)
[2022-04-30] MEDS ORDERED: LIDOCAINE HCL/PF 1% 10 MG/ML 5ML VIAL ONE (09:38)
[2022-04-30 13:37] LABS: BG BASE EXCESS -4.4 mmol/L (-2.0-2.0); BG CARBOXYHEMOGLOBIN 0.7 % (0.5-1.5); BG DEOXYHEMOGLOBIN 9.9 % (0.0-5.0); BG FRACTION INSPIRED OXYGEN 40; BG HCO3 ACT 20.1 mmol/L (22.0-26.0); BG METHEMOGLOBIN 0.3 % (0.0-1.5); BG OXYHEMOGLOBIN 89.1 % (94.0-97.0); BG PCO2 34.6 mmHg (35.0-45.0); BG PH 7.383 (7.350-7.450); BG PO2 59.6 mmHg (75.0-100.0); BG SAMPLE SITE LEFT RADIAL; BG TOTAL HEMOGLOBIN 9.1 g/dL (12.0-18.0); BG VENT MODE NASAL CANNULA
[2022-04-30] MEDS: MONTELUKAST SODIUM 10MG TABLET PO SCH (16:41)
[2022-04-30] MEDS: CEFTRIAXONE 1,000 MG in DEXTROSE 5% WATER 50 ML IV SCH (16:41)
[2022-04-30] MEDS ORDERED: FUROSEMIDE 20MG/2ML VIAL IVP NR (17:00)
[2022-04-30] MEDS ORDERED: NALOXONE HCL 0.4MG/ML VIAL IV PRN (18:30)
[2022-04-30] MEDS: TRAZODONE HCL 50MG TABLET PO SCH (21:33)
[2022-04-30 22:15] LABS: BG BASE EXCESS -6.4 mmol/L (-2.0-2.0); BG CARBOXYHEMOGLOBIN 0.5 % (0.5-1.5); BG FRACTION INSPIRED OXYGEN 100; BG HCO3 ACT 20.3 mmol/L (22.0-26.0); BG METHEMOGLOBIN 0.3 % (0.0-1.5); BG OXYGEN SATURATION 67.7 % (92.0-98.5); BG OXYHEMOGLOBIN 67.2 % (94.0-97.0); BG PCO2 45.5 mmHg (35.0-45.0); BG PH 7.268 (7.350-7.450); BG TOTAL HEMOGLOBIN 10.7 g/dL (12.0-18.0); BG VENT MODE MASK - BIPAP
[2022-04-30] MEDS ORDERED: NOREPINEPHRINE 8 MG in DEXT 5% WATER 242 ML IV PRN (23:00)
[2022-04-30] MEDS ORDERED: PROPOFOL 10MG/ML 100ML 100 ML IV PRN (23:00)
[2022-04-30 23:50] LABS: BASOPHILS % 0.1 % (0.0-2.0); EOSINOPHILS % 0.1 % (0.0-5.0); HEMATOCRIT. 29.4 % (36.0-48.0); LYMPHOCYTES % 9.8 % (20.0-50.0); MEAN CORPUSCULAR VOLUME 90.8 fL (81.0-99.0); MEAN PLATELET VOLUME 7.9 fl (7.4-10.4); MONOCYTES % 2.5 % (2.0-8.0); NEUTROPHILS % 87.5 % (40.0-76.0); PLATELET 463 x1000/uL (130-400); RED BLOOD CELL COUNT 3.24 mill/uL (4.2-5.4); RED CELL DISTRIBUTION WIDTH 15.4 % (11.6-14.6)
[2022-05-01] VITALS (56 sets, daily range): BP systolic 58–160; BP diastolic 42–75
[2022-05-01] MEDS: NOREPINEPHRINE 8 MG in DEXT 5% WATER 242 ML IV PRN ×2 (00:21→06:51)
[2022-05-01 00:26] LABS: BG BASE EXCESS -7.6 mmol/L (-2.0-2.0); BG CARBOXYHEMOGLOBIN 0.4 % (0.5-1.5); BG FRACTION INSPIRED OXYGEN 100; BG HCO3 ACT 19.7 mmol/L (22.0-26.0); BG OXYGEN SATURATION 80.9 % (92.0-98.5); BG OXYHEMOGLOBIN 80.6 % (94.0-97.0); BG PCO2 48.9 mmHg (35.0-45.0); BG PH 7.224 (7.350-7.450); BG PO2 53.1 mmHg (75.0-100.0); BG SAMPLE SITE RIGHT RADIAL; BG TOTAL HEMOGLOBIN 9.6 g/dL (12.0-18.0); BG TOTAL RESPIRATORY RATE 28 b/min; BG VENT MODE VENT - AC
[2022-05-01] MEDS ORDERED: SODIUM BICARBONATE 8.4% 1 MEQ/ML 50ML SYR IV NR (00:45)
[2022-05-01] MEDS: FENTANYL 2500MCG/250ML PMX 250 ML IV PRN (01:36)
[2022-05-01] MEDS: IPRATROPIUM/ALBUTEROL 0.5-3(2.5)MG/3ML NEB HHN SCH ×4 (02:15→20:19)
[2022-05-01 05:34] LABS: BASOPHILS % 0.5 % (0.0-2.0); HEMATOCRIT. 32.4 % (36.0-48.0); HEMOGLOBIN. 10.4 g/dL (12.0-16.0); LYMPHOCYTES % 7.1 % (20.0-50.0); MEAN CORPUSCULAR HEMOGLOBIN 28.1 pg (28.0-32.0); MEAN CORPUSCULAR VOLUME 87.4 fL (81.0-99.0); MEAN PLATELET VOLUME 8.5 fl (7.4-10.4); MONOCYTES % 4.8 % (2.0-8.0); NEUTROPHILS % 87.6 % (40.0-76.0); PLATELET 520 x1000/uL (130-400); RED BLOOD CELL COUNT 3.71 mill/uL (4.2-5.4); RED CELL DISTRIBUTION WIDTH 15.1 % (11.6-14.6)
[2022-05-01] MEDS: BLOOD SUGAR DIAGNOSTIC STRIP TEST SCH ×4 (05:35→23:33)
[2022-05-01] MEDS: INSULIN LISPRO 100 UNITS/ML SUBCUT SCH ×4 (05:35→23:37)
[2022-05-01] MEDS: PHENYLEPHRINE 50 MG in DEXT 5% WATER 245 ML IV PRN (06:53)
[2022-05-01] MEDS: DEXT 5%/0.9% NACL 1,000 ML IV SCH (07:15)
[2022-05-01 08:01] LABS: BG BASE EXCESS -2.6 mmol/L (-2.0-2.0); BG CARBOXYHEMOGLOBIN 0.6 % (0.5-1.5); BG DEOXYHEMOGLOBIN 22.1 % (0.0-5.0); BG HCO3 ACT 23.2 mmol/L (22.0-26.0); BG METHEMOGLOBIN 0.1 % (0.0-1.5); BG OXYGEN SATURATION 77.7 % (92.0-98.5); BG OXYHEMOGLOBIN 77.2 % (94.0-97.0); BG PO2 43.9 mmHg (75.0-100.0); BG SAMPLE SITE RIGHT BRACHIAL; BG TOTAL HEMOGLOBIN 12.3 g/dL (12.0-18.0); BG VENT MODE VENT - AC
[2022-05-01] MEDS: HYDRALAZINE HCL 100MG TABLET PO SCH ×2 (09:00→20:49)
[2022-05-01] MEDS: AMLODIPINE 10MG TABLET PO SCH (09:00)
[2022-05-01] MEDS: GABAPENTIN 100MG CAPSULE PO SCH ×3 (09:11→17:00)
[2022-05-01] MEDS: PANTOPRAZOLE SODIUM 40 MG/VIAL IV SCH ×2 (09:11→20:49)
[2022-05-01] MEDS: GUAIFENESIN 600MG ER TABLET PO SCH (09:11)
[2022-05-01] MEDS: LORATADINE 10MG TABLET PO SCH (09:11)
[2022-05-01] MEDS: PAROXETINE HCL 10MG TABLET PO SCH (09:12)
[2022-05-01] MEDS: METHYLPREDNISOLONE SOD SUCC 125 MG/2 ML VIAL IV SCH ×2 (10:30→18:36)
[2022-05-01] MEDS: MEROPENEM 1,000 MG in SODIUM CHLORIDE 0.9% 100 ML IV SCH ×2 (13:23→22:25)
[2022-05-01] MEDS ORDERED: DIATR MEGLU/DIATRIZOATE SOLN 30ML PO NR (15:30)
[2022-05-01] MEDS: ACETYLCYSTEINE 100MG/ML 10% VIAL 4ML INH SCH (15:47)
[2022-05-01] MEDS: MONTELUKAST SODIUM 10MG TABLET PO SCH (17:00)
[2022-05-01] MEDS: TRAZODONE HCL 50MG TABLET PO SCH (20:50)
[2022-05-02] VITALS (60 sets, daily range): BP systolic 76–146; BP diastolic 51–100
[2022-05-02] MEDS: ACETYLCYSTEINE 100MG/ML 10% VIAL 4ML INH SCH ×3 (00:50→16:45)
[2022-05-02] MEDS: IPRATROPIUM/ALBUTEROL 0.5-3(2.5)MG/3ML NEB HHN SCH ×6 (00:50→20:29)
[2022-05-02] MEDS: PHENYLEPHRINE 50 MG in DEXT 5% WATER 245 ML IV PRN ×4 (01:09→21:04)
[2022-05-02] MEDS: BLOOD SUGAR DIAGNOSTIC STRIP TEST SCH ×3 (05:41→18:10)
[2022-05-02] MEDS: INSULIN LISPRO 100 UNITS/ML SUBCUT SCH ×3 (05:45→18:15)
[2022-05-02 05:46] LABS: BASOPHILS % 0.3 % (0.0-2.0); EOSINOPHILS % 0.2 % (0.0-5.0); HEMATOCRIT. 29.9 % (36.0-48.0); HEMOGLOBIN. 9.4 g/dL (12.0-16.0); LYMPHOCYTES % 7.3 % (20.0-50.0); MEAN CORPUSCULAR HEMOGLOBIN 27.9 pg (28.0-32.0); MEAN CORPUSCULAR VOLUME 88.9 fL (81.0-99.0); MEAN PLATELET VOLUME 9.3 fl (7.4-10.4); MONOCYTES % 3.2 % (2.0-8.0); PLATELET 333 x1000/uL (130-400); RED BLOOD CELL COUNT 3.36 mill/uL (4.2-5.4); RED CELL DISTRIBUTION WIDTH 15.1 % (11.6-14.6)
[2022-05-02 06:15] LABS: PHOSPHORUS 6.5 mg/dL (2.5-4.9)
[2022-05-02] MEDS ORDERED: LIDOCAINE HCL 1% 10 MG/ML 10ML VIAL ONE (08:30)
[2022-05-02] MEDS: HYDRALAZINE HCL 100MG TABLET PO SCH ×2 (09:00→09:07)
[2022-05-02] MEDS: AMLODIPINE 10MG TABLET PO SCH ×2 (09:00→09:07)
[2022-05-02] MEDS ORDERED: DIATR MEGLU/DIATRIZOATE SOLN 30ML PO NR (09:00)
[2022-05-02] MEDS: LORATADINE 10MG TABLET PO SCH (09:06)
[2022-05-02] MEDS: PANTOPRAZOLE SODIUM 40 MG/VIAL IV SCH ×2 (09:06→21:03)
[2022-05-02] MEDS: GABAPENTIN 100MG CAPSULE PO SCH ×3 (09:06→17:25)
[2022-05-02] MEDS: PAROXETINE HCL 10MG TABLET PO SCH (09:06)
[2022-05-02] MEDS: MEROPENEM 1,000 MG in SODIUM CHLORIDE 0.9% 100 ML IV SCH ×2 (09:08→21:13)
[2022-05-02] MEDS: DEXT 5%/0.9% NACL 1,000 ML IV SCH (09:09)
[2022-05-02] MEDS ORDERED: IOHEXOL-300 50 ML BOTTLE IV ONE (09:32)
[2022-05-02 09:37] LABS: BG CARBOXYHEMOGLOBIN 0.5 % (0.5-1.5); BG DEOXYHEMOGLOBIN 4.2 % (0.0-5.0); BG FRACTION INSPIRED OXYGEN 90; BG OXYGEN SATURATION 95.8 % (92.0-98.5); BG OXYHEMOGLOBIN 95.3 % (94.0-97.0); BG PCO2 39.1 mmHg (35.0-45.0); BG PH 7.368 (7.350-7.450); BG PO2 89.1 mmHg (75.0-100.0); BG SAMPLE SITE LEFT RADIAL; BG TOTAL HEMOGLOBIN 9.1 g/dL (12.0-18.0); BG VENT MODE VENT - AC
[2022-05-02] MEDS: CITRIC ACID/SODIUM CITRATE SOLN 30ML UDC PO SCH ×3 (12:02→17:25)
[2022-05-02] MEDS: METHYLPREDNISOLONE SOD SUCC 125 MG/2 ML VIAL IV SCH ×2 (14:58→18:15)
[2022-05-02] MEDS: MONTELUKAST SODIUM 10MG TABLET PO SCH (17:25)
[2022-05-02] MEDS ORDERED: PHENYLEPHRINE 100 MG in DEXT 5% WATER 240 ML IV PRN (20:00)
[2022-05-02] MEDS: TRAZODONE HCL 50MG TABLET PO SCH (21:04)
[2022-05-02] MEDS: FENTANYL 2500MCG/250ML PMX 250 ML IV PRN (21:05)
[2022-05-03] VITALS (74 sets, daily range): BP systolic 94–149; BP diastolic 54–101
[2022-05-03] MEDS: INSULIN LISPRO 100 UNITS/ML SUBCUT SCH ×4 (00:57→17:26)
[2022-05-03] MEDS: BLOOD SUGAR DIAGNOSTIC STRIP TEST SCH ×4 (00:59→17:26)
[2022-05-03] MEDS: METHYLPREDNISOLONE SOD SUCC 125 MG/2 ML VIAL IV SCH ×3 (02:12→18:04)
[2022-05-03 05:33] LABS: HEMATOCRIT. 26.9 % (36.0-48.0); HEMOGLOBIN. 8.5 g/dL (12.0-16.0); MEAN CORPUSCULAR HEMOGLOBIN 27.8 pg (28.0-32.0); MEAN CORPUSCULAR VOLUME 87.8 fL (81.0-99.0); PLATELET 278 x1000/uL (130-400); RED BLOOD CELL COUNT 3.07 mill/uL (4.2-5.4)
[2022-05-03] MEDS: ACETYLCYSTEINE 100MG/ML 10% VIAL 4ML INH SCH ×3 (06:00→17:11)
[2022-05-03 07:45] LABS: BG BASE EXCESS -1.9 mmol/L (-2.0-2.0); BG CARBOXYHEMOGLOBIN 0.5 % (0.5-1.5); BG HCO3 ACT 22.4 mmol/L (22.0-26.0); BG OXYHEMOGLOBIN 98.5 % (94.0-97.0); BG PCO2 35.8 mmHg (35.0-45.0); BG PH 7.414 (7.350-7.450); BG SAMPLE SITE RIGHT BRACHIAL; BG TOTAL HEMOGLOBIN 8.6 g/dL (12.0-18.0); BG VENT MODE VENT - AC
[2022-05-03] MEDS: IPRATROPIUM/ALBUTEROL 0.5-3(2.5)MG/3ML NEB HHN SCH ×4 (08:36→20:19)
[2022-05-03] MEDS: PANTOPRAZOLE SODIUM 40 MG/VIAL IV SCH ×2 (08:58→20:47)
[2022-05-03] MEDS: PAROXETINE HCL 10MG TABLET PO SCH (08:58)
[2022-05-03] MEDS: GABAPENTIN 100MG CAPSULE PO SCH ×3 (08:58→16:55)
[2022-05-03] MEDS: LORATADINE 10MG TABLET PO SCH (08:58)
[2022-05-03] MEDS: MEROPENEM 1,000 MG in SODIUM CHLORIDE 0.9% 100 ML IV SCH ×2 (08:59→20:47)
[2022-05-03] MEDS: DEXT 5%/0.9% NACL 1,000 ML IV SCH (08:59)
[2022-05-03] MEDS: CITRIC ACID/SODIUM CITRATE SOLN 30ML UDC PO SCH ×3 (09:00→16:55)
[2022-05-03] MEDS: ENOXAPARIN 30MG/0.3ML SYR SUBCUT SCH (11:06)
[2022-05-03] MEDS: METOCLOPRAMIDE HCL 10MG/2ML VIAL IV SCH ×2 (12:19→18:04)
[2022-05-03] MEDS: FENTANYL 2500MCG/250ML PMX 250 ML IV PRN (15:01)
[2022-05-03] MEDS: MONTELUKAST SODIUM 10MG TABLET PO SCH (16:55)
[2022-05-03 18:27] LABS: PLATELET ESTIMATE NORMAL
[2022-05-03] MEDS: TRAZODONE HCL 50MG TABLET PO SCH (20:47)
[2022-05-04] VITALS (94 sets, daily range): BP systolic 83–168; BP diastolic 42–85
[2022-05-04] MEDS: ACETYLCYSTEINE 100MG/ML 10% VIAL 4ML INH SCH ×3 (00:15→16:15)
[2022-05-04] MEDS: IPRATROPIUM/ALBUTEROL 0.5-3(2.5)MG/3ML NEB HHN SCH ×6 (00:15→20:25)
[2022-05-04] MEDS: BLOOD SUGAR DIAGNOSTIC STRIP TEST SCH ×4 (00:16→18:35)
[2022-05-04] MEDS: METOCLOPRAMIDE HCL 10MG/2ML VIAL IV SCH ×4 (00:53→18:34)
[2022-05-04] MEDS: METHYLPREDNISOLONE SOD SUCC 125 MG/2 ML VIAL IV SCH ×2 (01:56→10:28)
[2022-05-04] MEDS: INSULIN LISPRO 100 UNITS/ML SUBCUT SCH ×4 (06:03→18:35)
[2022-05-04] MEDS: FENTANYL 2500MCG/250ML PMX 250 ML IV PRN (06:11)
[2022-05-04 07:34] LABS: BG CARBOXYHEMOGLOBIN 0.6 % (0.5-1.5); BG DEOXYHEMOGLOBIN 1.5 % (0.0-5.0); BG FRACTION INSPIRED OXYGEN 60; BG HCO3 ACT 21.3 mmol/L (22.0-26.0); BG METHEMOGLOBIN 0.3 % (0.0-1.5); BG OXYGEN SATURATION 98.5 % (92.0-98.5); BG OXYHEMOGLOBIN 97.6 % (94.0-97.0); BG PCO2 40.2 mmHg (35.0-45.0); BG PH 7.343 (7.350-7.450); BG SAMPLE SITE RIGHT BRACHIAL; BG TOTAL HEMOGLOBIN 7.5 g/dL (12.0-18.0); BG VENT MODE VENT - AC
[2022-05-04] MEDS ORDERED: MIDAZOLAM HCL 100 MG in SODIUM CHLORIDE 0.9% 80 ML IV PRN (08:45)
[2022-05-04] MEDS: HYDRALAZINE HCL 100MG TABLET PO SCH ×2 (09:00→21:00)
[2022-05-04] MEDS: MEROPENEM 1,000 MG in SODIUM CHLORIDE 0.9% 100 ML IV SCH ×2 (09:09→21:25)
[2022-05-04] MEDS: LORATADINE 10MG TABLET PO SCH (09:10)
[2022-05-04] MEDS: PANTOPRAZOLE SODIUM 40 MG/VIAL IV SCH ×2 (09:10→21:25)
[2022-05-04] MEDS: GABAPENTIN 100MG CAPSULE PO SCH ×3 (09:10→17:19)
[2022-05-04] MEDS: DEXT 5%/0.9% NACL 1,000 ML IV SCH (09:11)
[2022-05-04] MEDS: CITRIC ACID/SODIUM CITRATE SOLN 30ML UDC PO SCH ×3 (09:11→17:19)
[2022-05-04] MEDS: PAROXETINE HCL 10MG TABLET PO SCH (10:28)
[2022-05-04] MEDS: ENOXAPARIN 30MG/0.3ML SYR SUBCUT SCH (10:29)
[2022-05-04] MEDS: MONTELUKAST SODIUM 10MG TABLET PO SCH (17:19)
[2022-05-04] MEDS: METHYLPREDNISOLONE SOD SUCC 40 MG/ML VIAL IV SCH (18:34)
[2022-05-04] MEDS: TRAZODONE HCL 50MG TABLET PO SCH (21:25)
[2022-05-05] VITALS (92 sets, daily range): BP systolic 107–179; BP diastolic 50–93
[2022-05-05] MEDS: IPRATROPIUM/ALBUTEROL 0.5-3(2.5)MG/3ML NEB HHN SCH ×6 (00:15→20:11)
[2022-05-05] MEDS: ACETYLCYSTEINE 100MG/ML 10% VIAL 4ML INH SCH ×3 (00:15→16:27)
[2022-05-05] MEDS: BLOOD SUGAR DIAGNOSTIC STRIP TEST SCH ×4 (00:36→18:04)
[2022-05-05] MEDS: METOCLOPRAMIDE HCL 10MG/2ML VIAL IV SCH ×4 (00:40→18:04)
[2022-05-05] MEDS: INSULIN LISPRO 100 UNITS/ML SUBCUT SCH ×4 (00:42→18:03)
[2022-05-05] MEDS: METHYLPREDNISOLONE SOD SUCC 40 MG/ML VIAL IV SCH ×3 (04:20→18:03)
[2022-05-05 05:34] LABS: HEMATOCRIT. 21.3 % (36.0-48.0); MEAN CORPUSCULAR HEMOGLOBIN 28.2 pg (28.0-32.0); MEAN CORPUSCULAR VOLUME 86.3 fL (81.0-99.0); MEAN PLATELET VOLUME 9.1 fl (7.4-10.4); PLATELET 120 x1000/uL (130-400); RED BLOOD CELL COUNT 2.46 mill/uL (4.2-5.4); RED CELL DISTRIBUTION WIDTH 15.4 % (11.6-14.6)
[2022-05-05 05:56] LABS: PHOSPHORUS 5.9 mg/dL (2.5-4.9)
[2022-05-05 06:42] LABS: HEMOGLOBIN. 6.9 g/dL (12.0-16.0)
[2022-05-05 07:27] LABS: BG BASE EXCESS 2.8 mmol/L (-2.0-2.0); BG CARBOXYHEMOGLOBIN 0.2 % (0.5-1.5); BG DEOXYHEMOGLOBIN 1.9 % (0.0-5.0); BG HCO3 ACT 26.1 mmol/L (22.0-26.0); BG METHEMOGLOBIN 0.1 % (0.0-1.5); BG OXYGEN SATURATION 98.1 % (92.0-98.5); BG OXYHEMOGLOBIN 97.8 % (94.0-97.0); BG PCO2 34.7 mmHg (35.0-45.0); BG PH 7.495 (7.350-7.450); BG PO2 137.1 mmHg (75.0-100.0); BG SAMPLE SITE RIGHT RADIAL; BG TOTAL HEMOGLOBIN 7.7 g/dL (12.0-18.0); BG VENT MODE VENT - AC
[2022-05-05] MEDS: HYDRALAZINE HCL 100MG TABLET PO SCH ×2 (08:53→19:58)
[2022-05-05] MEDS: GABAPENTIN 100MG CAPSULE PO SCH ×3 (08:53→18:04)
[2022-05-05] MEDS: LORATADINE 10MG TABLET PO SCH (08:54)
[2022-05-05] MEDS: PAROXETINE HCL 10MG TABLET PO SCH (08:54)
[2022-05-05] MEDS: MEROPENEM 1,000 MG in SODIUM CHLORIDE 0.9% 100 ML IV SCH ×2 (08:55→19:57)
[2022-05-05] MEDS: PANTOPRAZOLE SODIUM 40 MG/VIAL IV SCH ×2 (09:41→19:59)
[2022-05-05] MEDS: AMLODIPINE 10MG TABLET PO SCH (09:46)
[2022-05-05 10:29] LABS: NUCLEATED RED BLOOD CELLS 1 /100 WBC
[2022-05-05 10:30] LABS: PLATELET ESTIMATE SLIGHTLY DECREASED
[2022-05-05] MEDS: ENOXAPARIN 30MG/0.3ML SYR SUBCUT SCH (11:10)
[2022-05-05] MEDS: HYDRALAZINE 20MG/ML VIAL IV PRN (12:54)
[2022-05-05] MEDS: MONTELUKAST SODIUM 10MG TABLET PO SCH (18:04)
[2022-05-05] MEDS: TRAZODONE HCL 50MG TABLET PO SCH (19:57)
[2022-05-06] VITALS (61 sets, daily range): BP systolic 104–175; BP diastolic 62–132
[2022-05-06] MEDS: IPRATROPIUM/ALBUTEROL 0.5-3(2.5)MG/3ML NEB HHN SCH ×6 (00:37→20:27)
[2022-05-06] MEDS: ACETYLCYSTEINE 100MG/ML 10% VIAL 4ML INH SCH ×2 (00:37→08:11)
[2022-05-06] MEDS: METOCLOPRAMIDE HCL 10MG/2ML VIAL IV SCH ×5 (01:07→23:46)
[2022-05-06] MEDS: INSULIN LISPRO 100 UNITS/ML SUBCUT SCH ×5 (01:08→23:56)
[2022-05-06] MEDS: METHYLPREDNISOLONE SOD SUCC 40 MG/ML VIAL IV SCH ×2 (02:26→17:34)
[2022-05-06] MEDS: BLOOD SUGAR DIAGNOSTIC STRIP TEST SCH ×5 (05:20→23:46)
[2022-05-06 05:53] LABS: HEMATOCRIT. 26.5 % (36.0-48.0); HEMOGLOBIN. 8.5 g/dL (12.0-16.0); MEAN CORPUSCULAR HEMOGLOBIN 28.1 pg (28.0-32.0); MEAN CORPUSCULAR VOLUME 87.5 fL (81.0-99.0); MEAN PLATELET VOLUME 9.4 fl (7.4-10.4); PLATELET 122 x1000/uL (130-400); RED BLOOD CELL COUNT 3.03 mill/uL (4.2-5.4); RED CELL DISTRIBUTION WIDTH 14.9 % (11.6-14.6)
[2022-05-06 07:41] LABS: BG BASE EXCESS -0.2 mmol/L (-2.0-2.0); BG CARBOXYHEMOGLOBIN 0.7 % (0.5-1.5); BG DEOXYHEMOGLOBIN 3.6 % (0.0-5.0); BG FRACTION INSPIRED OXYGEN 40; BG HCO3 ACT 24.8 mmol/L (22.0-26.0); BG METHEMOGLOBIN 0.1 % (0.0-1.5); BG OXYGEN SATURATION 96.4 % (92.0-98.5); BG OXYHEMOGLOBIN 95.6 % (94.0-97.0); BG PCO2 42.1 mmHg (35.0-45.0); BG PH 7.388 (7.350-7.450); BG PO2 98.2 mmHg (75.0-100.0); BG SAMPLE SITE RIGHT RADIAL; BG TOTAL HEMOGLOBIN 8.5 g/dL (12.0-18.0); BG VENT MODE VENT - AC
[2022-05-06] MEDS: GABAPENTIN 100MG CAPSULE PO SCH ×3 (08:48→17:34)
[2022-05-06] MEDS: LORATADINE 10MG TABLET PO SCH (08:48)
[2022-05-06] MEDS: PANTOPRAZOLE SODIUM 40 MG/VIAL IV SCH ×2 (08:48→21:02)
[2022-05-06] MEDS: HYDRALAZINE HCL 100MG TABLET PO SCH ×2 (08:48→21:03)
[2022-05-06] MEDS: AMLODIPINE 10MG TABLET PO SCH (08:48)
[2022-05-06] MEDS: PAROXETINE HCL 10MG TABLET PO SCH (08:48)
[2022-05-06] MEDS: MEROPENEM 1,000 MG in SODIUM CHLORIDE 0.9% 100 ML IV SCH ×2 (08:49→21:08)
[2022-05-06 12:40] LABS: NUCLEATED RED BLOOD CELLS 1 /100 WBC; PLATELET ESTIMATE NORMAL
[2022-05-06] MEDS: MONTELUKAST SODIUM 10MG TABLET PO SCH (17:34)
[2022-05-06] MEDS ORDERED: ENOXAPARIN 30MG/0.3ML SYR SUBCUT SCH (18:00)
[2022-05-06] MEDS: TRAZODONE HCL 50MG TABLET PO SCH (21:03)
[2022-05-07] VITALS (35 sets, daily range): BP systolic 108–187; BP diastolic 58–98
[2022-05-07] MEDS: IPRATROPIUM/ALBUTEROL 0.5-3(2.5)MG/3ML NEB HHN SCH ×5 (00:18→20:54)
[2022-05-07] MEDS: METHYLPREDNISOLONE SOD SUCC 40 MG/ML VIAL IV SCH ×2 (02:14→09:08)
[2022-05-07] MEDS: METOCLOPRAMIDE HCL 10MG/2ML VIAL IV SCH ×3 (05:35→18:59)
[2022-05-07] MEDS: BLOOD SUGAR DIAGNOSTIC STRIP TEST SCH ×3 (06:03→18:59)
[2022-05-07] MEDS: INSULIN LISPRO 100 UNITS/ML SUBCUT SCH ×3 (06:04→18:00)
[2022-05-07 06:10] LABS: HEMATOCRIT. 25.5 % (36.0-48.0); HEMOGLOBIN. 8.2 g/dL (12.0-16.0); MEAN CORPUSCULAR HEMOGLOBIN 28.2 pg (28.0-32.0); MEAN CORPUSCULAR VOLUME 87.2 fL (81.0-99.0); MEAN PLATELET VOLUME 9.3 fl (7.4-10.4); PLATELET 132 x1000/uL (130-400); RED BLOOD CELL COUNT 2.93 mill/uL (4.2-5.4); RED CELL DISTRIBUTION WIDTH 15.3 % (11.6-14.6)
[2022-05-07 08:36] LABS: BG BASE EXCESS 3.6 mmol/L (-2.0-2.0); BG CARBOXYHEMOGLOBIN 0.3 % (0.5-1.5); BG DEOXYHEMOGLOBIN 15.6 % (0.0-5.0); BG FRACTION INSPIRED OXYGEN 40; BG HCO3 ACT 30.1 mmol/L (22.0-26.0); BG METHEMOGLOBIN 0.3 % (0.0-1.5); BG OXYGEN SATURATION 84.3 % (92.0-98.5); BG OXYHEMOGLOBIN 83.8 % (94.0-97.0); BG PCO2 56.6 mmHg (35.0-45.0); BG PH 7.344 (7.350-7.450); BG PO2 53.3 mmHg (75.0-100.0); BG SAMPLE SITE RIGHT RADIAL; BG TOTAL HEMOGLOBIN 9.5 g/dL (12.0-18.0); BG VENT MODE VENT - AC
[2022-05-07] MEDS: AMLODIPINE 10MG TABLET PO SCH (09:07)
[2022-05-07] MEDS: GABAPENTIN 100MG CAPSULE PO SCH ×3 (09:07→17:11)
[2022-05-07] MEDS: LORATADINE 10MG TABLET PO SCH (09:07)
[2022-05-07] MEDS: PANTOPRAZOLE SODIUM 40 MG/VIAL IV SCH ×2 (09:08→21:05)
[2022-05-07] MEDS: PAROXETINE HCL 10MG TABLET PO SCH (09:08)
[2022-05-07] MEDS: HYDRALAZINE HCL 100MG TABLET PO SCH ×2 (09:08→21:12)
[2022-05-07] MEDS: MEROPENEM 1,000 MG in SODIUM CHLORIDE 0.9% 100 ML IV SCH ×2 (09:09→21:05)
[2022-05-07 13:22] LABS: NUCLEATED RED BLOOD CELLS 1 /100 WBC; PLATELET ESTIMATE NORMAL
[2022-05-07] MEDS: MONTELUKAST SODIUM 10MG TABLET PO SCH (17:11)
[2022-05-07] MEDS ORDERED: MICAFUNGIN 100 MG in SODIUM CHLORIDE 0.9% 100 ML IV SCH (17:30)
[2022-05-07] MEDS: TRAZODONE HCL 50MG TABLET PO SCH (21:05)
[2022-05-08] VITALS (42 sets, daily range): BP systolic 94–154; BP diastolic 46–82
[2022-05-08] MEDS: METOCLOPRAMIDE HCL 10MG/2ML VIAL IV SCH ×4 (00:04→18:19)
[2022-05-08] MEDS: INSULIN LISPRO 100 UNITS/ML SUBCUT SCH ×4 (00:05→17:23)
[2022-05-08] MEDS: IPRATROPIUM/ALBUTEROL 0.5-3(2.5)MG/3ML NEB HHN SCH ×7 (00:42→23:55)
[2022-05-08 05:22] LABS: HEMATOCRIT. 26.5 % (36.0-48.0); HEMOGLOBIN. 8.4 g/dL (12.0-16.0); MEAN CORPUSCULAR HEMOGLOBIN 28.3 pg (28.0-32.0); MEAN PLATELET VOLUME 9.8 fl (7.4-10.4); PLATELET 173 x1000/uL (130-400); RED BLOOD CELL COUNT 2.98 mill/uL (4.2-5.4)
[2022-05-08] MEDS: BLOOD SUGAR DIAGNOSTIC STRIP TEST SCH ×4 (06:03→17:23)
[2022-05-08] MEDS ORDERED: POTASSIUM CHLORIDE 20MEQ/PACKET PO NR (07:00)
[2022-05-08 07:51] LABS: BG BASE EXCESS 4.6 mmol/L (-2.0-2.0); BG CARBOXYHEMOGLOBIN 0.8 % (0.5-1.5); BG HCO3 ACT 29.5 mmol/L (22.0-26.0); BG METHEMOGLOBIN 0.3 % (0.0-1.5); BG OXYGEN SATURATION 91.9 % (92.0-98.5); BG OXYHEMOGLOBIN 90.9 % (94.0-97.0); BG PCO2 45.3 mmHg (35.0-45.0); BG PH 7.431 (7.350-7.450); BG PO2 64.7 mmHg (75.0-100.0); BG SAMPLE SITE RIGHT RADIAL; BG TOTAL HEMOGLOBIN 8.9 g/dL (12.0-18.0); BG VENT MODE VENT - AC
[2022-05-08 08:28] LABS: PLATELET ESTIMATE NORMAL
[2022-05-08] MEDS: HYDRALAZINE HCL 100MG TABLET PO SCH ×2 (09:03→21:41)
[2022-05-08] MEDS: LORATADINE 10MG TABLET PO SCH (09:03)
[2022-05-08] MEDS: PANTOPRAZOLE SODIUM 40 MG/VIAL IV SCH ×2 (09:03→21:41)
[2022-05-08] MEDS: GABAPENTIN 100MG CAPSULE PO SCH ×3 (09:03→18:20)
[2022-05-08] MEDS: DEXTROSE 5% WATER 1,000 ML IV SCH (09:04)
[2022-05-08] MEDS: PAROXETINE HCL 10MG TABLET PO SCH (09:04)
[2022-05-08] MEDS: AMLODIPINE 10MG TABLET PO SCH (09:04)
[2022-05-08] MEDS: MEROPENEM 1,000 MG in SODIUM CHLORIDE 0.9% 100 ML IV SCH ×2 (09:05→21:40)
[2022-05-08] MEDS ORDERED: PROPOFOL 10MG/ML 100ML 100 ML IV PRN ×2 (09:30)
[2022-05-08] MEDS: MONTELUKAST SODIUM 10MG TABLET PO SCH (18:20)
[2022-05-08] MEDS: TRAZODONE HCL 50MG TABLET PO SCH (21:41)
[2022-05-09] VITALS (54 sets, daily range): BP systolic 89–143; BP diastolic 38–93
[2022-05-09] MEDS: PROPOFOL 10MG/ML 100ML 100 ML IV PRN ×2 (00:06→17:04)
[2022-05-09] MEDS: INSULIN LISPRO 100 UNITS/ML SUBCUT SCH ×4 (01:10→17:17)
[2022-05-09] MEDS: METOCLOPRAMIDE HCL 10MG/2ML VIAL IV SCH ×4 (01:10→17:16)
[2022-05-09] MEDS: DEXTROSE 5% WATER 1,000 ML IV SCH ×2 (01:11→16:55)
[2022-05-09] MEDS: IPRATROPIUM/ALBUTEROL 0.5-3(2.5)MG/3ML NEB HHN SCH ×6 (04:09→23:42)
[2022-05-09 04:38] LABS: HEMATOCRIT. 24.3 % (36.0-48.0); HEMOGLOBIN. 7.6 g/dL (12.0-16.0); MEAN CORPUSCULAR VOLUME 89.1 fL (81.0-99.0); MEAN PLATELET VOLUME 10.3 fl (7.4-10.4); PLATELET 180 x1000/uL (130-400); RED BLOOD CELL COUNT 2.73 mill/uL (4.2-5.4); RED CELL DISTRIBUTION WIDTH 15.6 % (11.6-14.6)
[2022-05-09 05:01] LABS: PHOSPHORUS 3.3 mg/dL (2.5-4.9)
[2022-05-09] MEDS: BLOOD SUGAR DIAGNOSTIC STRIP TEST SCH ×4 (05:20→17:04)
[2022-05-09] MEDS: MEROPENEM 1,000 MG in SODIUM CHLORIDE 0.9% 100 ML IV SCH ×2 (08:18→21:11)
[2022-05-09] MEDS: PANTOPRAZOLE SODIUM 40 MG/VIAL IV SCH ×2 (08:18→21:11)
[2022-05-09] MEDS: GABAPENTIN 100MG CAPSULE PO SCH ×3 (08:18→16:54)
[2022-05-09] MEDS: AMLODIPINE 10MG TABLET PO SCH (08:19)
[2022-05-09] MEDS: LORATADINE 10MG TABLET PO SCH (08:19)
[2022-05-09] MEDS: HYDRALAZINE HCL 100MG TABLET PO SCH ×2 (08:20→21:11)
[2022-05-09] MEDS: PAROXETINE HCL 10MG TABLET PO SCH (08:23)
[2022-05-09 09:15] LABS: BG BASE EXCESS 2.7 mmol/L (-2.0-2.0); BG CARBOXYHEMOGLOBIN 0.3 % (0.5-1.5); BG DEOXYHEMOGLOBIN 3.6 % (0.0-5.0); BG FRACTION INSPIRED OXYGEN 60; BG HCO3 ACT 26.8 mmol/L (22.0-26.0); BG METHEMOGLOBIN 0.3 % (0.0-1.5); BG OXYGEN SATURATION 96.4 % (92.0-98.5); BG OXYHEMOGLOBIN 95.8 % (94.0-97.0); BG PH 7.455 (7.350-7.450); BG PO2 92.7 mmHg (75.0-100.0); BG SAMPLE SITE RIGHT RADIAL; BG TOTAL HEMOGLOBIN 8.1 g/dL (12.0-18.0); BG VENT MODE VENT - AC
[2022-05-09 09:49] LABS: PLATELET ESTIMATE NORMAL
[2022-05-09 12:24] LABS: CLARITY URINE CLOUDY (CLEAR); COLOR URINE YELLOW (YELLOW); KETONES URINE TRACE (NEGATIVE); LEUKOCYTE ESTERASE URINE 3+ (NEGATIVE); NITRITE URINE NEGATIVE (NEGATIVE); OCCULT BLOOD URINE NEGATIVE (NEGATIVE); PROTEIN URINE 1+ (NEGATIVE); SPECIFIC GRAVITY URINE 1.017 (1.005-1.030); UROBILINOGEN URINE 0.2 E.U./dL (0.2-1.0)
[2022-05-09 13:25] LABS: INR 1.1; PARTIAL THROMBOPLASTIN TIME 30.8 sec (23.4-31.0); PROTHROMBIN TIME 12.1 sec (9.6-11.0)
[2022-05-09] MEDS: MONTELUKAST SODIUM 10MG TABLET PO SCH (16:54)
[2022-05-09] MEDS: TRAZODONE HCL 50MG TABLET PO SCH (21:11)
[2022-05-10] VITALS (56 sets, daily range): BP systolic 95–144; BP diastolic 50–115
[2022-05-10] MEDS: BLOOD SUGAR DIAGNOSTIC STRIP TEST SCH ×4 (00:05→17:36)
[2022-05-10] MEDS: METOCLOPRAMIDE HCL 10MG/2ML VIAL IV SCH ×4 (00:05→17:36)
[2022-05-10] MEDS: INSULIN LISPRO 100 UNITS/ML SUBCUT SCH ×4 (00:05→17:37)
[2022-05-10] MEDS: IPRATROPIUM/ALBUTEROL 0.5-3(2.5)MG/3ML NEB HHN SCH ×5 (03:55→19:56)
[2022-05-10 06:13] LABS: HEMATOCRIT. 23.4 % (36.0-48.0); HEMOGLOBIN. 7.4 g/dL (12.0-16.0); MEAN CORPUSCULAR HEMOGLOBIN 28.1 pg (28.0-32.0); MEAN CORPUSCULAR VOLUME 88.8 fL (81.0-99.0); MEAN PLATELET VOLUME 10.3 fl (7.4-10.4); PLATELET 196 x1000/uL (130-400); RED BLOOD CELL COUNT 2.63 mill/uL (4.2-5.4); RED CELL DISTRIBUTION WIDTH 15.8 % (11.6-14.6)
[2022-05-10 06:26] LABS: CHLORIDE 113 mEq/L (98-107)
[2022-05-10 06:39] LABS: PHOSPHORUS 2.9 mg/dL (2.5-4.9)
[2022-05-10] MEDS ORDERED: POTASSIUM CHLORIDE 20MEQ/PACKET PO NR (07:15)
[2022-05-10] MEDS ORDERED: SODIUM BICARBONATE 4% (2.4MEQ) 5ML VIAL IV ONE (08:12)
[2022-05-10 08:20] LABS: BG CARBOXYHEMOGLOBIN 0.6 % (0.5-1.5); BG DEOXYHEMOGLOBIN 14.9 % (0.0-5.0); BG FRACTION INSPIRED OXYGEN 60; BG HCO3 ACT 26.5 mmol/L (22.0-26.0); BG METHEMOGLOBIN 0.1 % (0.0-1.5); BG OXYHEMOGLOBIN 84.4 % (94.0-97.0); BG PCO2 40.8 mmHg (35.0-45.0); BG SAMPLE SITE RIGHT RADIAL; BG TOTAL HEMOGLOBIN 9.3 g/dL (12.0-18.0); BG VENT MODE VENT - AC/VC
[2022-05-10] MEDS: AMLODIPINE 10MG TABLET PO SCH (09:00)
[2022-05-10] MEDS: HYDRALAZINE HCL 100MG TABLET PO SCH ×2 (09:00→21:19)
[2022-05-10 09:10] LABS: PLATELET ESTIMATE NORMAL
[2022-05-10] MEDS: PANTOPRAZOLE SODIUM 40 MG/VIAL IV SCH ×2 (09:19→21:19)
[2022-05-10] MEDS: GABAPENTIN 100MG CAPSULE PO SCH ×3 (09:20→17:36)
[2022-05-10] MEDS: PAROXETINE HCL 10MG TABLET PO SCH (09:20)
[2022-05-10] MEDS: LORATADINE 10MG TABLET PO SCH (09:20)
[2022-05-10] MEDS: PROPOFOL 10MG/ML 100ML 100 ML IV PRN (09:24)
[2022-05-10] MEDS: MEROPENEM 1,000 MG in SODIUM CHLORIDE 0.9% 100 ML IV SCH ×3 (09:30→21:22)
[2022-05-10] MEDS: METHYLPREDNISOLONE SOD SUCC 40 MG/ML VIAL IV SCH ×2 (13:16→21:19)
[2022-05-10] MEDS: MONTELUKAST SODIUM 10MG TABLET PO SCH (17:36)
[2022-05-10] MEDS ORDERED: PROPOFOL 10MG/ML 100ML 100 ML IV PRN (21:00)
[2022-05-10] MEDS: TRAZODONE HCL 50MG TABLET PO SCH (21:20)
[2022-05-11] VITALS (56 sets, daily range): BP systolic 99–152; BP diastolic 48–84
[2022-05-11] MEDS: IPRATROPIUM/ALBUTEROL 0.5-3(2.5)MG/3ML NEB HHN SCH ×6 (00:30→19:42)
[2022-05-11] MEDS: METOCLOPRAMIDE HCL 10MG/2ML VIAL IV SCH ×4 (00:38→17:35)
[2022-05-11] MEDS: INSULIN LISPRO 100 UNITS/ML SUBCUT SCH ×4 (00:39→18:29)
[2022-05-11] MEDS: BLOOD SUGAR DIAGNOSTIC STRIP TEST SCH ×4 (00:39→17:35)
[2022-05-11] MEDS: METHYLPREDNISOLONE SOD SUCC 40 MG/ML VIAL IV SCH ×3 (05:29→21:22)
[2022-05-11 06:17] LABS: MEAN CORPUSCULAR HEMOGLOBIN 28.1 pg (28.0-32.0); MEAN CORPUSCULAR VOLUME 88.3 fL (81.0-99.0); MEAN PLATELET VOLUME 10.8 fl (7.4-10.4); PLATELET 230 x1000/uL (130-400); RED BLOOD CELL COUNT 2.38 mill/uL (4.2-5.4); RED CELL DISTRIBUTION WIDTH 15.8 % (11.6-14.6)
[2022-05-11 07:18] LABS: HEMOGLOBIN. 6.7 g/dL (12.0-16.0)
[2022-05-11 07:40] LABS: PHOSPHORUS 3.7 mg/dL (2.5-4.9)
[2022-05-11 08:08] LABS: BG BASE EXCESS -3.4 mmol/L (-2.0-2.0); BG CARBOXYHEMOGLOBIN 0.7 % (0.5-1.5); BG DEOXYHEMOGLOBIN 7.4 % (0.0-5.0); BG FRACTION INSPIRED OXYGEN 60..0; BG HCO3 ACT 20.7 mmol/L (22.0-26.0); BG METHEMOGLOBIN 0.1 % (0.0-1.5); BG OXYGEN SATURATION 92.5 % (92.0-98.5); BG OXYHEMOGLOBIN 91.8 % (94.0-97.0); BG PCO2 32.8 mmHg (35.0-45.0); BG PH 7.417 (7.350-7.450); BG PO2 67.3 mmHg (75.0-100.0); BG SAMPLE SITE RIGHT RADIAL; BG TOTAL HEMOGLOBIN 8.5 g/dL (12.0-18.0); BG VENT MODE VENT - AC
[2022-05-11] MEDS: PROPOFOL 10MG/ML 100ML 100 ML IV PRN (08:18)
[2022-05-11] MEDS: MEROPENEM 1,000 MG in SODIUM CHLORIDE 0.9% 100 ML IV SCH ×2 (08:41→21:23)
[2022-05-11] MEDS: PAROXETINE HCL 10MG TABLET PO SCH (08:41)
[2022-05-11] MEDS: AMLODIPINE 10MG TABLET PO SCH (08:42)
[2022-05-11] MEDS: GABAPENTIN 100MG CAPSULE PO SCH ×3 (08:43→17:35)
[2022-05-11] MEDS: HYDRALAZINE HCL 100MG TABLET PO SCH ×2 (08:43→21:00)
[2022-05-11] MEDS: PANTOPRAZOLE SODIUM 40 MG/VIAL IV SCH ×2 (08:43→21:22)
[2022-05-11] MEDS: LORATADINE 10MG TABLET PO SCH (08:43)
[2022-05-11] MEDS ORDERED: NALOXONE HCL 0.4MG/ML VIAL IV PRN (09:15)
[2022-05-11] MEDS: ACETAMINOPHEN 650MG/20.3ML UDC PO PRN (15:53)
[2022-05-11 16:28] LABS: PLATELET ESTIMATE NORMAL
[2022-05-11] MEDS: MONTELUKAST SODIUM 10MG TABLET PO SCH (17:35)
[2022-05-11] MEDS: TRAZODONE HCL 50MG TABLET PO SCH (21:23)
[2022-05-12] VITALS (40 sets, daily range): BP systolic 117–170; BP diastolic 57–122
[2022-05-12] MEDS: METOCLOPRAMIDE HCL 10MG/2ML VIAL IV SCH ×5 (00:01→23:13)
[2022-05-12] MEDS: INSULIN LISPRO 100 UNITS/ML SUBCUT SCH ×5 (00:02→23:13)
[2022-05-12] MEDS: IPRATROPIUM/ALBUTEROL 0.5-3(2.5)MG/3ML NEB HHN SCH ×6 (00:19→20:20)
[2022-05-12] MEDS: METHYLPREDNISOLONE SOD SUCC 40 MG/ML VIAL IV SCH ×3 (04:28→21:28)
[2022-05-12 05:41] LABS: HEMOGLOBIN. 9.4 g/dL (12.0-16.0); MEAN CORPUSCULAR HEMOGLOBIN 27.9 pg (28.0-32.0); MEAN CORPUSCULAR VOLUME 85.7 fL (81.0-99.0); MEAN PLATELET VOLUME 10.5 fl (7.4-10.4); PLATELET 273 x1000/uL (130-400); RED BLOOD CELL COUNT 3.38 mill/uL (4.2-5.4); RED CELL DISTRIBUTION WIDTH 16.4 % (11.6-14.6)
[2022-05-12] MEDS: BLOOD SUGAR DIAGNOSTIC STRIP TEST SCH ×5 (06:25→23:13)
[2022-05-12 09:00] LABS: BG BASE EXCESS -2.6 mmol/L (-2.0-2.0); BG CARBOXYHEMOGLOBIN 0.3 % (0.5-1.5); BG FRACTION INSPIRED OXYGEN 60; BG HCO3 ACT 21.6 mmol/L (22.0-26.0); BG METHEMOGLOBIN 0.3 % (0.0-1.5); BG OXYHEMOGLOBIN 94.4 % (94.0-97.0); BG PCO2 34.9 mmHg (35.0-45.0); BG PH 7.409 (7.350-7.450); BG PO2 77.4 mmHg (75.0-100.0); BG SAMPLE SITE RIGHT RADIAL; BG TOTAL HEMOGLOBIN 10.2 g/dL (12.0-18.0); BG VENT MODE VENT - AC
[2022-05-12] MEDS: AMLODIPINE 10MG TABLET PO SCH (09:15)
[2022-05-12] MEDS: PANTOPRAZOLE SODIUM 40 MG/VIAL IV SCH ×2 (09:15→21:27)
[2022-05-12] MEDS: HYDRALAZINE HCL 100MG TABLET PO SCH ×2 (09:15→21:28)
[2022-05-12] MEDS: GABAPENTIN 100MG CAPSULE PO SCH ×3 (09:15→17:40)
[2022-05-12] MEDS: LORATADINE 10MG TABLET PO SCH (09:15)
[2022-05-12] MEDS: MEROPENEM 1,000 MG in SODIUM CHLORIDE 0.9% 100 ML IV SCH ×2 (09:15→21:27)
[2022-05-12] MEDS: PAROXETINE HCL 10MG TABLET PO SCH (09:16)
[2022-05-12] MEDS: FUROSEMIDE 40MG/4ML VIAL IVP SCH ×2 (09:27→17:45)
[2022-05-12] MEDS: MORPHINE SULFATE 2 MG/ML CPJ (NOT FOR IM USE) IV PRN (10:28)
[2022-05-12] MEDS ORDERED: PROPOFOL 10MG/ML 100ML 100 ML IV PRN (11:00)
[2022-05-12 13:31] LABS: PLATELET ESTIMATE NORMAL
[2022-05-12] MEDS: MONTELUKAST SODIUM 10MG TABLET PO SCH (17:44)
[2022-05-12] MEDS: TRAZODONE HCL 50MG TABLET PO SCH (21:28)
[2022-05-12] MEDS: INSULIN GLARGINE 100 UNITS/ML SUBCUT SCH (21:28)
[2022-05-13] VITALS (82 sets, daily range): BP systolic 121–171; BP diastolic 59–95
[2022-05-13] MEDS: IPRATROPIUM/ALBUTEROL 0.5-3(2.5)MG/3ML NEB HHN SCH ×5 (00:08→20:38)
[2022-05-13] MEDS: METHYLPREDNISOLONE SOD SUCC 40 MG/ML VIAL IV SCH ×3 (03:40→20:34)
[2022-05-13 05:09] LABS: HEMATOCRIT. 31.2 % (36.0-48.0); MEAN CORPUSCULAR VOLUME 87.5 fL (81.0-99.0); MEAN PLATELET VOLUME 10.3 fl (7.4-10.4); PLATELET 328 x1000/uL (130-400); RED BLOOD CELL COUNT 3.56 mill/uL (4.2-5.4); RED CELL DISTRIBUTION WIDTH 16.7 % (11.6-14.6)
[2022-05-13 05:12] LABS: CHLORIDE 111 mEq/L (98-107)
[2022-05-13] MEDS: METOCLOPRAMIDE HCL 10MG/2ML VIAL IV SCH ×3 (05:31→17:20)
[2022-05-13] MEDS: BLOOD SUGAR DIAGNOSTIC STRIP TEST SCH ×3 (05:32→17:12)
[2022-05-13] MEDS: INSULIN LISPRO 100 UNITS/ML SUBCUT SCH ×3 (05:32→17:19)
[2022-05-13] MEDS ORDERED: POTASSIUM CHLORIDE 20MEQ/PACKET PO NR (08:30)
[2022-05-13] MEDS: INSULIN GLARGINE 100 UNITS/ML SUBCUT SCH ×2 (09:02→21:55)
[2022-05-13] MEDS: AMLODIPINE 10MG TABLET PO SCH (09:03)
[2022-05-13] MEDS: GABAPENTIN 100MG CAPSULE PO SCH ×3 (09:03→17:20)
[2022-05-13] MEDS: MEROPENEM 1,000 MG in SODIUM CHLORIDE 0.9% 100 ML IV SCH ×2 (09:04→18:52)
[2022-05-13] MEDS: FUROSEMIDE 40MG/4ML VIAL IVP SCH ×3 (09:04→17:20)
[2022-05-13] MEDS: PANTOPRAZOLE SODIUM 40 MG/VIAL IV SCH ×2 (09:04→20:34)
[2022-05-13] MEDS: HYDRALAZINE HCL 100MG TABLET PO SCH ×2 (09:04→20:35)
[2022-05-13] MEDS: LORATADINE 10MG TABLET PO SCH (09:04)
[2022-05-13] MEDS: MORPHINE SULFATE 2 MG/ML CPJ (NOT FOR IM USE) IV PRN (09:05)
[2022-05-13] MEDS: PAROXETINE HCL 10MG TABLET PO SCH (09:36)
[2022-05-13 10:11] LABS: BG CARBOXYHEMOGLOBIN 0.3 % (0.5-1.5); BG DEOXYHEMOGLOBIN 2.4 % (0.0-5.0); BG FRACTION INSPIRED OXYGEN 60; BG HCO3 ACT 24.4 mmol/L (22.0-26.0); BG METHEMOGLOBIN 0.3 % (0.0-1.5); BG OXYGEN SATURATION 97.6 % (92.0-98.5); BG PCO2 38.9 mmHg (35.0-45.0); BG PH 7.416 (7.350-7.450); BG PO2 109.1 mmHg (75.0-100.0); BG SAMPLE SITE RIGHT RADIAL; BG TOTAL HEMOGLOBIN 10.5 g/dL (12.0-18.0); BG VENT MODE VENT - AC
[2022-05-13] MEDS: METOLAZONE 2.5MG TABLET NG SCH ×2 (11:49→17:20)
[2022-05-13 12:29] LABS: PLATELET ESTIMATE NORMAL
[2022-05-13 12:43] LABS: BG BASE EXCESS -2.8 mmol/L (-2.0-2.0); BG DEOXYHEMOGLOBIN 7.2 % (0.0-5.0); BG FRACTION INSPIRED OXYGEN 40; BG HCO3 ACT 21.1 mmol/L (22.0-26.0); BG METHEMOGLOBIN 0.2 % (0.0-1.5); BG OXYGEN SATURATION 92.8 % (92.0-98.5); BG OXYHEMOGLOBIN 92.6 % (94.0-97.0); BG PCO2 33.4 mmHg (35.0-45.0); BG PH 7.418 (7.350-7.450); BG PO2 65.3 mmHg (75.0-100.0); BG SAMPLE SITE RIGHT RADIAL; BG TOTAL HEMOGLOBIN 10.6 g/dL (12.0-18.0); BG VENT MODE VENT - CPAP
[2022-05-13] MEDS: MONTELUKAST SODIUM 10MG TABLET PO SCH (17:20)
[2022-05-13 18:08] LABS: BG CARBOXYHEMOGLOBIN 0.3 % (0.5-1.5); BG DEOXYHEMOGLOBIN 7.5 % (0.0-5.0); BG FRACTION INSPIRED OXYGEN 50; BG HCO3 ACT 22.2 mmol/L (22.0-26.0); BG METHEMOGLOBIN 0.1 % (0.0-1.5); BG OXYGEN SATURATION 92.5 % (92.0-98.5); BG OXYHEMOGLOBIN 92.1 % (94.0-97.0); BG PH 7.408 (7.350-7.450); BG PO2 66.4 mmHg (75.0-100.0); BG SAMPLE SITE RIGHT RADIAL; BG TOTAL HEMOGLOBIN 10.8 g/dL (12.0-18.0); BG VENT MODE VENT - CPAP
[2022-05-13] MEDS: HYDRALAZINE 20MG/ML VIAL IV PRN (19:04)
[2022-05-13] MEDS: TRAZODONE HCL 50MG TABLET PO SCH (20:35)
[2022-05-14] VITALS (83 sets, daily range): BP systolic 104–162; BP diastolic 52–104
[2022-05-14] MEDS: IPRATROPIUM/ALBUTEROL 0.5-3(2.5)MG/3ML NEB HHN SCH ×6 (00:23→20:56)
[2022-05-14] MEDS: BLOOD SUGAR DIAGNOSTIC STRIP TEST SCH ×5 (00:43→23:46)
[2022-05-14] MEDS: INSULIN LISPRO 100 UNITS/ML SUBCUT SCH ×5 (00:59→23:46)
[2022-05-14] MEDS: MEROPENEM 1,000 MG in SODIUM CHLORIDE 0.9% 100 ML IV SCH ×3 (01:00→17:39)
[2022-05-14] MEDS: METOCLOPRAMIDE HCL 10MG/2ML VIAL IV SCH ×5 (05:34→23:46)
[2022-05-14] MEDS: METHYLPREDNISOLONE SOD SUCC 40 MG/ML VIAL IV SCH ×3 (05:40→19:49)
[2022-05-14 05:58] LABS: CHLORIDE 113 mEq/L (98-107)
[2022-05-14 06:06] LABS: HEMATOCRIT. 27.6 % (36.0-48.0); MEAN CORPUSCULAR HEMOGLOBIN 27.9 pg (28.0-32.0); MEAN CORPUSCULAR VOLUME 85.7 fL (81.0-99.0); MEAN PLATELET VOLUME 10.1 fl (7.4-10.4); PLATELET 275 x1000/uL (130-400); RED BLOOD CELL COUNT 3.22 mill/uL (4.2-5.4); RED CELL DISTRIBUTION WIDTH 16.5 % (11.6-14.6)
[2022-05-14 07:39] LABS: BG BASE EXCESS 0.6 mmol/L (-2.0-2.0); BG CARBOXYHEMOGLOBIN 0.3 % (0.5-1.5); BG DEOXYHEMOGLOBIN 3.5 % (0.0-5.0); BG FRACTION INSPIRED OXYGEN 55; BG HCO3 ACT 24.9 mmol/L (22.0-26.0); BG METHEMOGLOBIN 0.6 % (0.0-1.5); BG OXYGEN SATURATION 96.5 % (92.0-98.5); BG OXYHEMOGLOBIN 95.6 % (94.0-97.0); BG PCO2 38.5 mmHg (35.0-45.0); BG PH 7.428 (7.350-7.450); BG PO2 93.3 mmHg (75.0-100.0); BG SAMPLE SITE RIGHT RADIAL; BG TOTAL HEMOGLOBIN 9.3 g/dL (12.0-18.0); BG VENT MODE VENT - AC
[2022-05-14] MEDS: PANTOPRAZOLE SODIUM 40 MG/VIAL IV SCH ×2 (09:05→21:46)
[2022-05-14] MEDS: PAROXETINE HCL 10MG TABLET PO SCH (09:05)
[2022-05-14] MEDS: GABAPENTIN 100MG CAPSULE PO SCH ×3 (09:06→17:39)
[2022-05-14] MEDS: METOLAZONE 2.5MG TABLET NG SCH ×2 (09:06→17:39)
[2022-05-14] MEDS: AMLODIPINE 10MG TABLET PO SCH (09:06)
[2022-05-14] MEDS: HYDRALAZINE HCL 100MG TABLET PO SCH ×2 (09:06→21:46)
[2022-05-14] MEDS: FUROSEMIDE 40MG/4ML VIAL IVP SCH ×3 (09:06→17:39)
[2022-05-14] MEDS: LORATADINE 10MG TABLET PO SCH (09:06)
[2022-05-14] MEDS: INSULIN GLARGINE 100 UNITS/ML SUBCUT SCH ×2 (09:08→22:24)
[2022-05-14 11:45] LABS: PLATELET ESTIMATE NORMAL
[2022-05-14 16:30] LABS: INR 1.1; PARTIAL THROMBOPLASTIN TIME 24.2 sec (23.4-31.0); PROTHROMBIN TIME 11.6 sec (9.6-11.0)
[2022-05-14] MEDS: MONTELUKAST SODIUM 10MG TABLET PO SCH (17:39)
[2022-05-14] MEDS: MORPHINE SULFATE 2 MG/ML CPJ (NOT FOR IM USE) IV PRN (18:27)
[2022-05-14] MEDS: TRAZODONE HCL 50MG TABLET PO SCH (21:46)
[2022-05-15] VITALS (46 sets, daily range): BP systolic 111–175; BP diastolic 60–97
[2022-05-15] MEDS: IPRATROPIUM/ALBUTEROL 0.5-3(2.5)MG/3ML NEB HHN SCH ×6 (00:38→20:53)
[2022-05-15] MEDS: MEROPENEM 1,000 MG in SODIUM CHLORIDE 0.9% 100 ML IV SCH ×3 (02:53→17:49)
[2022-05-15] MEDS: METHYLPREDNISOLONE SOD SUCC 40 MG/ML VIAL IV SCH ×3 (03:00→20:05)
[2022-05-15] MEDS: DEXTROSE 50% WATER 50ML SYRINGE IV PRN ×2 (05:37→17:49)
[2022-05-15] MEDS: BLOOD SUGAR DIAGNOSTIC STRIP TEST SCH ×3 (05:41→17:41)
[2022-05-15] MEDS: INSULIN LISPRO 100 UNITS/ML SUBCUT SCH ×3 (05:41→17:47)
[2022-05-15] MEDS: METOCLOPRAMIDE HCL 10MG/2ML VIAL IV SCH ×3 (05:41→17:41)
[2022-05-15 06:15] LABS: BASOPHILS % 0.1 % (0.0-2.0); EOSINOPHILS % 0.8 % (0.0-5.0); HEMATOCRIT. 27.8 % (36.0-48.0); LYMPHOCYTES % 8.2 % (20.0-50.0); MEAN CORPUSCULAR VOLUME 86.5 fL (81.0-99.0); MEAN PLATELET VOLUME 9.8 fl (7.4-10.4); MONOCYTES % 3.7 % (2.0-8.0); NEUTROPHILS % 87.2 % (40.0-76.0); PLATELET 253 x1000/uL (130-400); RED BLOOD CELL COUNT 3.22 mill/uL (4.2-5.4); RED CELL DISTRIBUTION WIDTH 16.3 % (11.6-14.6)
[2022-05-15 06:17] LABS: CHLORIDE 115 mEq/L (98-107)
[2022-05-15] MEDS ORDERED: POTASSIUM CHLORIDE INJ 40 MEQ in DEXT 5% WATER 250 ML IV ONE (07:45)
[2022-05-15] MEDS: LORATADINE 10MG TABLET PO SCH (08:18)
[2022-05-15] MEDS: AMLODIPINE 10MG TABLET PO SCH (08:18)
[2022-05-15] MEDS: HYDRALAZINE HCL 100MG TABLET PO SCH ×2 (08:18→21:25)
[2022-05-15] MEDS: METOLAZONE 2.5MG TABLET NG SCH ×2 (08:18→17:00)
[2022-05-15] MEDS: PAROXETINE HCL 10MG TABLET PO SCH (08:19)
[2022-05-15] MEDS: FUROSEMIDE 40MG/4ML VIAL IVP SCH ×3 (09:01→17:49)
[2022-05-15] MEDS: PANTOPRAZOLE SODIUM 40 MG/VIAL IV SCH ×2 (09:02→21:26)
[2022-05-15] MEDS: INSULIN GLARGINE 100 UNITS/ML SUBCUT SCH ×2 (09:03→21:50)
[2022-05-15] MEDS: DEXTROSE 5% WATER 1,000 ML IV SCH (09:04)
[2022-05-15 09:17] LABS: BG BASE EXCESS 1.3 mmol/L (-2.0-2.0); BG CARBOXYHEMOGLOBIN 0.3 % (0.5-1.5); BG DEOXYHEMOGLOBIN 2.3 % (0.0-5.0); BG FRACTION INSPIRED OXYGEN 45; BG HCO3 ACT 26.2 mmol/L (22.0-26.0); BG OXYGEN SATURATION 97.7 % (92.0-98.5); BG OXYHEMOGLOBIN 97.4 % (94.0-97.0); BG PCO2 42.5 mmHg (35.0-45.0); BG PH 7.407 (7.350-7.450); BG PO2 120.1 mmHg (75.0-100.0); BG SAMPLE SITE LEFT RADIAL; BG TOTAL HEMOGLOBIN 10.1 g/dL (12.0-18.0); BG VENT MODE VENT - AC
[2022-05-15] MEDS: KCL 20MEQ/100ML X 2 FOR TOTAL KCL 40MEQ/200ML IV SCH ×2 (10:23→12:12)
[2022-05-15] MEDS: GABAPENTIN SOLN 300MG/6ML UDC GT SCH ×2 (14:00→22:55)
[2022-05-15] MEDS ORDERED: ROCURONIUM BROMIDE 10MG/ML VIAL 5ML IV ONE (14:13)
[2022-05-15] MEDS ORDERED: FENTANYL CITRATE/PF 50MCG/ML 2ML VIAL ONE (14:13)
[2022-05-15] MEDS ORDERED: MIDAZOLAM HCL 2 MG/2 ML VIAL ONE (14:21)
[2022-05-15] MEDS ORDERED: PHENYLEPHRINE HCL 10 MG/ML 1ML (IV VIAL) IV ONE (14:58)
[2022-05-15] MEDS: MONTELUKAST SODIUM 10MG TABLET PO SCH (17:00)
[2022-05-15] MEDS: MORPHINE SULFATE 2 MG/ML CPJ (NOT FOR IM USE) IV PRN (19:04)
[2022-05-15] MEDS: TRAZODONE HCL 50MG TABLET PO SCH (21:25)
[2022-05-16] VITALS (12 sets, daily range): BP systolic 102–159; BP diastolic 58–85
[2022-05-16] MEDS: IPRATROPIUM/ALBUTEROL 0.5-3(2.5)MG/3ML NEB HHN SCH ×6 (00:22→20:05)
[2022-05-16] MEDS: METOCLOPRAMIDE HCL 10MG/2ML VIAL IV SCH ×4 (00:23→17:54)
[2022-05-16] MEDS: MORPHINE SULFATE 2 MG/ML CPJ (NOT FOR IM USE) IV PRN (00:24)
[2022-05-16] MEDS: MEROPENEM 1,000 MG in SODIUM CHLORIDE 0.9% 100 ML IV SCH ×3 (01:42→17:54)
[2022-05-16] MEDS: METHYLPREDNISOLONE SOD SUCC 40 MG/ML VIAL IV SCH ×2 (04:52→17:53)
[2022-05-16] MEDS: INSULIN LISPRO 100 UNITS/ML SUBCUT SCH ×4 (06:00→18:04)
[2022-05-16] MEDS: BLOOD SUGAR DIAGNOSTIC STRIP TEST SCH ×4 (06:00→17:55)
[2022-05-16] MEDS: GABAPENTIN SOLN 300MG/6ML UDC GT SCH ×3 (06:01→21:39)
[2022-05-16 06:47] LABS: BASOPHILS % 0.3 % (0.0-2.0); EOSINOPHILS % 2.3 % (0.0-5.0); HEMATOCRIT. 31.3 % (36.0-48.0); HEMOGLOBIN. 10.2 g/dL (12.0-16.0); MEAN CORPUSCULAR HEMOGLOBIN 28.2 pg (28.0-32.0); MEAN CORPUSCULAR VOLUME 86.7 fL (81.0-99.0); MEAN PLATELET VOLUME 10.3 fl (7.4-10.4); MONOCYTES % 2.9 % (2.0-8.0); NEUTROPHILS % 85.5 % (40.0-76.0); PLATELET 244 x1000/uL (130-400); RED BLOOD CELL COUNT 3.61 mill/uL (4.2-5.4); RED CELL DISTRIBUTION WIDTH 16.4 % (11.6-14.6)
[2022-05-16 07:07] LABS: CHLORIDE 115 mEq/L (98-107)
[2022-05-16 07:10] LABS: PHOSPHORUS 3.5 mg/dL (2.5-4.9)
[2022-05-16] MEDS ORDERED: POTASSIUM CHLORIDE 20MEQ/PACKET PO NR (08:45)
[2022-05-16] MEDS: FUROSEMIDE 40MG/4ML VIAL IVP SCH ×3 (08:47→17:53)
[2022-05-16] MEDS: PANTOPRAZOLE SODIUM 40 MG/VIAL IV SCH ×2 (08:48→21:27)
[2022-05-16] MEDS: HYDRALAZINE 20MG/ML VIAL IV PRN ×3 (08:49→21:30)
[2022-05-16] MEDS: METOLAZONE 2.5MG TABLET NG SCH ×2 (08:49→17:54)
[2022-05-16] MEDS: AMLODIPINE 10MG TABLET PO SCH (08:50)
[2022-05-16] MEDS: LORATADINE 10MG TABLET PO SCH (08:50)
[2022-05-16] MEDS: PAROXETINE HCL 10MG TABLET PO SCH (08:50)
[2022-05-16] MEDS: HYDRALAZINE HCL 100MG TABLET PO SCH ×2 (09:02→21:42)
[2022-05-16] MEDS: INSULIN GLARGINE 100 UNITS/ML SUBCUT SCH ×2 (09:20→21:28)
[2022-05-16] MEDS: DEXTROSE 5% WATER 1,000 ML IV SCH (09:25)
[2022-05-16] MEDS: MONTELUKAST SODIUM 10MG TABLET PO SCH (17:54)
[2022-05-16] MEDS: TRAZODONE HCL 50MG TABLET PO SCH (21:38)
[2022-05-17] VITALS (12 sets, daily range): BP systolic 97–134; BP diastolic 54–80
[2022-05-17] MEDS: IPRATROPIUM/ALBUTEROL 0.5-3(2.5)MG/3ML NEB HHN SCH ×6 (00:28→20:15)
[2022-05-17] MEDS: BLOOD SUGAR DIAGNOSTIC STRIP TEST SCH ×5 (00:58→23:48)
[2022-05-17] MEDS: INSULIN LISPRO 100 UNITS/ML SUBCUT SCH ×5 (01:13→23:48)
[2022-05-17] MEDS: METHYLPREDNISOLONE SOD SUCC 40 MG/ML VIAL IV SCH ×2 (01:14→17:02)
[2022-05-17] MEDS: GABAPENTIN SOLN 300MG/6ML UDC GT SCH ×3 (06:48→20:45)
[2022-05-17] MEDS: METOCLOPRAMIDE HCL 10MG/2ML VIAL IV SCH ×5 (06:51→23:54)
[2022-05-17] MEDS: HYDRALAZINE HCL 100MG TABLET PO SCH ×2 (08:37→20:45)
[2022-05-17] MEDS: PANTOPRAZOLE SODIUM 40 MG/VIAL IV SCH ×2 (08:37→20:44)
[2022-05-17] MEDS: METOLAZONE 2.5MG TABLET NG SCH ×2 (08:37→17:03)
[2022-05-17] MEDS: LORATADINE 10MG TABLET PO SCH (08:37)
[2022-05-17] MEDS: FUROSEMIDE 40MG/4ML VIAL IVP SCH ×3 (08:37→17:02)
[2022-05-17] MEDS: PAROXETINE HCL 10MG TABLET PO SCH (08:38)
[2022-05-17] MEDS: AMLODIPINE 10MG TABLET PO SCH (08:38)
[2022-05-17] MEDS: INSULIN GLARGINE 100 UNITS/ML SUBCUT SCH ×2 (11:04→22:00)
[2022-05-17 11:21] LABS: HEMATOCRIT. 28.7 % (36.0-48.0); HEMOGLOBIN. 9.3 g/dL (12.0-16.0); MEAN CORPUSCULAR HEMOGLOBIN 27.9 pg (28.0-32.0); MEAN CORPUSCULAR VOLUME 86.4 fL (81.0-99.0); PLATELET 222 x1000/uL (130-400); RED BLOOD CELL COUNT 3.32 mill/uL (4.2-5.4); RED CELL DISTRIBUTION WIDTH 16.1 % (11.6-14.6)
[2022-05-17 11:42] LABS: CHLORIDE 113 mEq/L (98-107)
[2022-05-17] MEDS: DEXTROSE 5% WATER 1,000 ML IV SCH (11:44)
[2022-05-17 11:56] LABS: PHOSPHORUS 3.5 mg/dL (2.5-4.9)
[2022-05-17 13:46] LABS: PLATELET ESTIMATE NORMAL
[2022-05-17] MEDS: MONTELUKAST SODIUM 10MG TABLET PO SCH (17:05)
[2022-05-17] MEDS: TRAZODONE HCL 50MG TABLET PO SCH (20:44)
[2022-05-18] VITALS (12 sets, daily range): BP systolic 107–145; BP diastolic 34–74
[2022-05-18] MEDS: IPRATROPIUM/ALBUTEROL 0.5-3(2.5)MG/3ML NEB HHN SCH ×6 (00:14→20:06)
[2022-05-18] MEDS: BLOOD SUGAR DIAGNOSTIC STRIP TEST SCH ×3 (06:00→17:13)
[2022-05-18] MEDS: METOCLOPRAMIDE HCL 10MG/2ML VIAL IV SCH ×3 (06:03→17:13)
[2022-05-18] MEDS: INSULIN LISPRO 100 UNITS/ML SUBCUT SCH ×3 (06:03→17:13)
[2022-05-18] MEDS: GABAPENTIN SOLN 300MG/6ML UDC GT SCH ×3 (06:03→22:18)
[2022-05-18 06:17] LABS: HEMATOCRIT. 28.1 % (36.0-48.0); HEMOGLOBIN. 9.1 g/dL (12.0-16.0); MEAN CORPUSCULAR VOLUME 86.5 fL (81.0-99.0); MEAN PLATELET VOLUME 9.9 fl (7.4-10.4); PLATELET 185 x1000/uL (130-400); RED BLOOD CELL COUNT 3.25 mill/uL (4.2-5.4); RED CELL DISTRIBUTION WIDTH 16.4 % (11.6-14.6)
[2022-05-18 06:34] LABS: CHLORIDE 112 mEq/L (98-107)
[2022-05-18] MEDS: AMLODIPINE 10MG TABLET PO SCH (08:13)
[2022-05-18] MEDS: PANTOPRAZOLE SODIUM 40 MG/VIAL IV SCH ×2 (08:13→22:17)
[2022-05-18] MEDS: PAROXETINE HCL 10MG TABLET PO SCH (08:13)
[2022-05-18] MEDS: METHYLPREDNISOLONE SOD SUCC 40 MG/ML VIAL IV SCH (08:13)
[2022-05-18] MEDS: FUROSEMIDE 40MG/4ML VIAL IVP SCH (08:13)
[2022-05-18] MEDS: METOLAZONE 2.5MG TABLET NG SCH ×2 (08:14→17:16)
[2022-05-18] MEDS: HYDRALAZINE HCL 100MG TABLET PO SCH ×2 (08:14→22:18)
[2022-05-18] MEDS: LORATADINE 10MG TABLET PO SCH (08:14)
[2022-05-18] MEDS: INSULIN GLARGINE 100 UNITS/ML SUBCUT SCH ×2 (08:17→22:37)
[2022-05-18] MEDS ORDERED: POTASSIUM CHLORIDE 20MEQ/PACKET PO SCH (08:45)
[2022-05-18] MEDS: FUROSEMIDE 20MG TABLET PO SCH (09:00)
[2022-05-18 09:09] LABS: BG BASE EXCESS 6.7 mmol/L (-2.0-2.0); BG DEOXYHEMOGLOBIN 4.2 % (0.0-5.0); BG FRACTION INSPIRED OXYGEN 40; BG HCO3 ACT 31.2 mmol/L (22.0-26.0); BG METHEMOGLOBIN 0.3 % (0.0-1.5); BG OXYGEN SATURATION 95.8 % (92.0-98.5); BG OXYHEMOGLOBIN 95.5 % (94.0-97.0); BG PCO2 44.2 mmHg (35.0-45.0); BG PH 7.466 (7.350-7.450); BG PO2 83.7 mmHg (75.0-100.0); BG SAMPLE SITE RIGHT RADIAL; BG TOTAL HEMOGLOBIN 9.7 g/dL (12.0-18.0); BG VENT MODE VENT - SIMV
[2022-05-18] MEDS: DEXTROSE 5% WATER 1,000 ML IV SCH (12:37)
[2022-05-18 13:42] LABS: PLATELET ESTIMATE NORMAL
[2022-05-18] MEDS ORDERED: PREDNISONE 20MG TABLET PO SCH (17:00)
[2022-05-18] MEDS: MONTELUKAST SODIUM 10MG TABLET PO SCH (17:12)
[2022-05-18] MEDS: MEROPENEM 1,000 MG in SODIUM CHLORIDE 0.9% 100 ML IV SCH (17:43)
[2022-05-18] MEDS: TRAZODONE HCL 50MG TABLET PO SCH (22:18)
[2022-05-19] VITALS (12 sets, daily range): BP systolic 96–128; BP diastolic 61–78
[2022-05-19] MEDS: IPRATROPIUM/ALBUTEROL 0.5-3(2.5)MG/3ML NEB HHN SCH ×6 (00:21→20:32)
[2022-05-19] MEDS: BLOOD SUGAR DIAGNOSTIC STRIP TEST SCH ×4 (00:32→18:39)
[2022-05-19] MEDS: MEROPENEM 1,000 MG in SODIUM CHLORIDE 0.9% 100 ML IV SCH ×4 (00:32→22:23)
[2022-05-19] MEDS: METOCLOPRAMIDE HCL 10MG/2ML VIAL IV SCH ×5 (00:32→23:56)
[2022-05-19] MEDS: INSULIN LISPRO 100 UNITS/ML SUBCUT SCH ×4 (00:38→18:00)
[2022-05-19 06:19] LABS: HEMATOCRIT. 29.9 % (36.0-48.0); HEMOGLOBIN. 9.5 g/dL (12.0-16.0); MEAN CORPUSCULAR HEMOGLOBIN 27.7 pg (28.0-32.0); MEAN CORPUSCULAR VOLUME 87.7 fL (81.0-99.0); MEAN PLATELET VOLUME 10.3 fl (7.4-10.4); PLATELET 191 x1000/uL (130-400); RED BLOOD CELL COUNT 3.41 mill/uL (4.2-5.4); RED CELL DISTRIBUTION WIDTH 16.3 % (11.6-14.6)
[2022-05-19] MEDS: GABAPENTIN SOLN 300MG/6ML UDC GT SCH ×3 (06:25→22:27)
[2022-05-19 06:35] LABS: INR 1.2; PROTHROMBIN TIME 12.3 sec (9.6-11.0)
[2022-05-19 06:36] LABS: PHOSPHORUS 3.9 mg/dL (2.5-4.9)
[2022-05-19 06:42] LABS: HEPATITIS B SURFACE ANTIGEN NEGATIVE
[2022-05-19] MEDS: DEXTROSE 5% WATER 1,000 ML IV SCH (08:00)
[2022-05-19 08:17] LABS: PLATELET ESTIMATE NORMAL
[2022-05-19] MEDS: LORATADINE 10MG TABLET PO SCH (09:36)
[2022-05-19] MEDS: AMLODIPINE 10MG TABLET PO SCH (09:36)
[2022-05-19] MEDS: PAROXETINE HCL 10MG TABLET PO SCH (09:36)
[2022-05-19] MEDS: FUROSEMIDE 20MG TABLET PO SCH (09:36)
[2022-05-19] MEDS: METOLAZONE 2.5MG TABLET NG SCH ×2 (09:38→18:41)
[2022-05-19] MEDS: HYDRALAZINE HCL 100MG TABLET PO SCH ×2 (09:38→21:00)
[2022-05-19] MEDS: PANTOPRAZOLE SODIUM 40 MG/VIAL IV SCH ×2 (09:38→22:22)
[2022-05-19] MEDS: PREDNISONE 20MG TABLET PO SCH ×2 (09:44→18:39)
[2022-05-19] MEDS: INSULIN GLARGINE 100 UNITS/ML SUBCUT SCH ×2 (10:00→22:00)
[2022-05-19] MEDS ORDERED: POTASSIUM CHLORIDE 20MEQ/PACKET PO NR (11:15)
[2022-05-19 11:32] LABS: BG BASE EXCESS 2.8 mmol/L (-2.0-2.0); BG CARBOXYHEMOGLOBIN 0.1 % (0.5-1.5); BG DEOXYHEMOGLOBIN 5.7 % (0.0-5.0); BG HCO3 ACT 27.6 mmol/L (22.0-26.0); BG METHEMOGLOBIN 1.1 % (0.0-1.5); BG OXYGEN SATURATION 94.2 % (92.0-98.5); BG OXYHEMOGLOBIN 93.1 % (94.0-97.0); BG PCO2 43.8 mmHg (35.0-45.0); BG PH 7.418 (7.350-7.450); BG PO2 77.8 mmHg (75.0-100.0); BG SAMPLE SITE RIGHT RADIAL; BG TOTAL HEMOGLOBIN 9.7 g/dL (12.0-18.0); BG VENT MODE VENT - CPAP
[2022-05-19] MEDS ORDERED: VANCOMYCIN 1,500 MG in DEXT 5% WATER 500 ML IV NR (13:00)
[2022-05-19] MEDS: MONTELUKAST SODIUM 10MG TABLET PO SCH (18:39)
[2022-05-19] MEDS: TRAZODONE HCL 50MG TABLET PO SCH (22:27)
[2022-05-19] MEDS: DEXTROSE 50% WATER 50ML SYRINGE IV PRN (23:36)
[2022-05-20] VITALS (13 sets, daily range): BP systolic 91–119; BP diastolic 50–90
[2022-05-20] MEDS: IPRATROPIUM/ALBUTEROL 0.5-3(2.5)MG/3ML NEB HHN SCH ×6 (00:29→20:49)
[2022-05-20] MEDS: METOCLOPRAMIDE HCL 10MG/2ML VIAL IV SCH ×4 (05:52→23:49)
[2022-05-20] MEDS: GABAPENTIN SOLN 300MG/6ML UDC GT SCH ×3 (05:52→21:52)
[2022-05-20] MEDS: MEROPENEM 1,000 MG in SODIUM CHLORIDE 0.9% 100 ML IV SCH ×3 (05:53→21:52)
[2022-05-20] MEDS: BLOOD SUGAR DIAGNOSTIC STRIP TEST SCH ×5 (05:54→23:49)
[2022-05-20] MEDS: INSULIN LISPRO 100 UNITS/ML SUBCUT SCH ×5 (05:54→23:49)
[2022-05-20] MEDS ORDERED: POTASSIUM CHLORIDE 20MEQ/PACKET NG SCH (08:00)
[2022-05-20 08:36] LABS: PHOSPHORUS 3.5 mg/dL (2.5-4.9)
[2022-05-20] MEDS: PANTOPRAZOLE SODIUM 40 MG/VIAL IV SCH ×2 (09:41→21:50)
[2022-05-20] MEDS: PREDNISONE 20MG TABLET PO SCH ×2 (09:41→17:19)
[2022-05-20] MEDS: FUROSEMIDE 20MG TABLET PO SCH (09:41)
[2022-05-20] MEDS: METOLAZONE 2.5MG TABLET NG SCH ×2 (09:41→17:19)
[2022-05-20] MEDS: LORATADINE 10MG TABLET PO SCH (09:41)
[2022-05-20] MEDS: HYDRALAZINE HCL 100MG TABLET PO SCH ×2 (09:42→21:00)
[2022-05-20] MEDS: AMLODIPINE 10MG TABLET PO SCH (09:42)
[2022-05-20] MEDS: PAROXETINE HCL 10MG TABLET PO SCH (09:42)
[2022-05-20] MEDS: INSULIN GLARGINE 100 UNITS/ML SUBCUT SCH ×2 (10:02→22:05)
[2022-05-20] MEDS ORDERED: MAGNESIUM 1 G PREMIX 100 ML IV NR (12:30)
[2022-05-20] MEDS ORDERED: VANCOMYCIN 1G PREMIX 200 ML IV SCH (13:00)
[2022-05-20] MEDS ORDERED: MAGNESIUM 2 G PREMIX 50 ML IV NR (13:30)
[2022-05-20 14:23] LABS: BG BASE EXCESS 1.3 mmol/L (-2.0-2.0); BG CARBOXYHEMOGLOBIN 0.3 % (0.5-1.5); BG DEOXYHEMOGLOBIN 8.3 % (0.0-5.0); BG FRACTION INSPIRED OXYGEN 60; BG HCO3 ACT 26.5 mmol/L (22.0-26.0); BG METHEMOGLOBIN 0.2 % (0.0-1.5); BG OXYGEN SATURATION 91.7 % (92.0-98.5); BG OXYHEMOGLOBIN 91.2 % (94.0-97.0); BG PCO2 44.3 mmHg (35.0-45.0); BG PH 7.394 (7.350-7.450); BG SAMPLE SITE RIGHT RADIAL; BG TOTAL HEMOGLOBIN 9.5 g/dL (12.0-18.0); BG VENT MODE T PIECE
[2022-05-20] MEDS: MONTELUKAST SODIUM 10MG TABLET PO SCH (17:18)
[2022-05-20] MEDS: TRAZODONE HCL 50MG TABLET PO SCH (21:51)
[2022-05-21] VITALS (59 sets, daily range): BP systolic 61–161; BP diastolic 37–101
[2022-05-21] MEDS: IPRATROPIUM/ALBUTEROL 0.5-3(2.5)MG/3ML NEB HHN SCH ×6 (00:34→20:29)
[2022-05-21] MEDS: METOCLOPRAMIDE HCL 10MG/2ML VIAL IV SCH ×3 (05:28→16:39)
[2022-05-21] MEDS: GABAPENTIN SOLN 300MG/6ML UDC GT SCH ×3 (05:28→23:06)
[2022-05-21] MEDS: INSULIN LISPRO 100 UNITS/ML SUBCUT SCH ×3 (05:37→17:39)
[2022-05-21] MEDS: BLOOD SUGAR DIAGNOSTIC STRIP TEST SCH ×3 (05:37→17:39)
[2022-05-21] MEDS: MEROPENEM 1,000 MG in SODIUM CHLORIDE 0.9% 100 ML IV SCH ×3 (05:52→22:55)
[2022-05-21 06:53] LABS: HEMATOCRIT. 25.1 % (36.0-48.0); HEMOGLOBIN. 8.2 g/dL (12.0-16.0); MEAN CORPUSCULAR HEMOGLOBIN 28.1 pg (28.0-32.0); MEAN CORPUSCULAR VOLUME 86.1 fL (81.0-99.0); MEAN PLATELET VOLUME 10.6 fl (7.4-10.4); PLATELET 179 x1000/uL (130-400); RED BLOOD CELL COUNT 2.91 mill/uL (4.2-5.4); RED CELL DISTRIBUTION WIDTH 16.4 % (11.6-14.6)
[2022-05-21 07:08] LABS: PHOSPHORUS 5.1 mg/dL (2.5-4.9)
[2022-05-21 08:46] LABS: BG CARBOXYHEMOGLOBIN 0.3 % (0.5-1.5); BG DEOXYHEMOGLOBIN 3.2 % (0.0-5.0); BG FRACTION INSPIRED OXYGEN 50; BG HCO3 ACT 24.6 mmol/L (22.0-26.0); BG METHEMOGLOBIN 0.3 % (0.0-1.5); BG OXYGEN SATURATION 96.8 % (92.0-98.5); BG OXYHEMOGLOBIN 96.2 % (94.0-97.0); BG PCO2 39.8 mmHg (35.0-45.0); BG PH 7.409 (7.350-7.450); BG PO2 95.9 mmHg (75.0-100.0); BG SAMPLE SITE RIGHT RADIAL; BG TOTAL HEMOGLOBIN 9.3 g/dL (12.0-18.0); BG VENT MODE VENT - CPAP
[2022-05-21] MEDS: PANTOPRAZOLE SODIUM 40 MG/VIAL IV SCH ×2 (08:57→22:56)
[2022-05-21] MEDS: PAROXETINE HCL 10MG TABLET PO SCH (08:58)
[2022-05-21] MEDS: LORATADINE 10MG TABLET PO SCH (08:58)
[2022-05-21] MEDS: HYDRALAZINE HCL 100MG TABLET PO SCH (08:58)
[2022-05-21] MEDS: PREDNISONE 20MG TABLET PO SCH (08:58)
[2022-05-21] MEDS: METOLAZONE 2.5MG TABLET NG SCH ×2 (08:59→16:39)
[2022-05-21] MEDS: AMLODIPINE 10MG TABLET PO SCH (09:00)
[2022-05-21] MEDS: FUROSEMIDE 20MG TABLET PO SCH (09:00)
[2022-05-21] MEDS: DEXTROSE 5% WATER 1,000 ML IV SCH ×2 (09:01→09:32)
[2022-05-21] MEDS: INSULIN GLARGINE 100 UNITS/ML SUBCUT SCH ×2 (09:02→23:06)
[2022-05-21] MEDS ORDERED: POTASSIUM CHLORIDE 20MEQ/PACKET NG NR (09:30)
[2022-05-21 10:01] LABS: CREATINE KINASE 24 IU/L (26-192)
[2022-05-21 11:25] LABS: PLATELET ESTIMATE NORMAL
[2022-05-21] MEDS ORDERED: SODIUM CHLORIDE 0.9% 500 ML IV ONE (12:00)
[2022-05-21] MEDS: DEXTROSE 50% WATER 50ML SYRINGE IV PRN (12:19)
[2022-05-21 12:57] LABS: BG BASE EXCESS -0.7 mmol/L (-2.0-2.0); BG CARBOXYHEMOGLOBIN 0.3 % (0.5-1.5); BG DEOXYHEMOGLOBIN 1.4 % (0.0-5.0); BG FRACTION INSPIRED OXYGEN 100; BG HCO3 ACT 22.6 mmol/L (22.0-26.0); BG METHEMOGLOBIN 0.3 % (0.0-1.5); BG OXYGEN SATURATION 98.6 % (92.0-98.5); BG PCO2 32.4 mmHg (35.0-45.0); BG PH 7.461 (7.350-7.450); BG SAMPLE SITE RIGHT BRACHIAL; BG TOTAL HEMOGLOBIN 10.2 g/dL (12.0-18.0); BG VENT MODE VENT - AC
[2022-05-21] MEDS ORDERED: VANCOMYCIN 1GM PMX (XELLIA) 200 ML IV SCH (13:00)
[2022-05-21] MEDS ORDERED: SODIUM CHLORIDE 0.9% 500 ML IV NR (13:00)
[2022-05-21] MEDS: NOREPINEPHRINE 32 MG in DEXT 5% WATER 218 ML IV PRN (13:34)
[2022-05-21] MEDS ORDERED: DEXT 5%/0.45% NACL 500ML 500 ML IV ONE (13:55)
[2022-05-21] MEDS ORDERED: PHENYLEPHRINE 100 MG in DEXT 5% WATER 240 ML IV PRN (14:30)
[2022-05-21] MEDS: METHYLPREDNISOLONE SOD SUCC 40 MG/ML VIAL IV SCH ×2 (14:39→22:54)
[2022-05-21] MEDS ORDERED: POTASSIUM CHLORIDE 20MEQ/PACKET PO NR (16:15)
[2022-05-21] MEDS: MONTELUKAST SODIUM 10MG TABLET PO SCH (18:13)
[2022-05-21] MEDS: TRAZODONE HCL 50MG TABLET PO SCH (22:55)
[2022-05-21] MEDS: BENZONATATE 100MG CAPSULE PO PRN (23:07)
[2022-05-22] VITALS (99 sets, daily range): BP systolic 60–154; BP diastolic 24–88
[2022-05-22] MEDS: BLOOD SUGAR DIAGNOSTIC STRIP TEST SCH ×4 (00:05→18:00)
[2022-05-22] MEDS: VANCOMYCIN 1000MG/20ML ORAL SOLN PO SCH ×4 (00:05→18:06)
[2022-05-22] MEDS: METOCLOPRAMIDE HCL 10MG/2ML VIAL IV SCH ×4 (00:06→18:05)
[2022-05-22] MEDS: IPRATROPIUM/ALBUTEROL 0.5-3(2.5)MG/3ML NEB HHN SCH ×6 (00:21→19:52)
[2022-05-22 05:44] LABS: HEMATOCRIT. 33.2 % (36.0-48.0); HEMOGLOBIN. 10.9 g/dL (12.0-16.0); MEAN CORPUSCULAR VOLUME 85.2 fL (81.0-99.0); MEAN PLATELET VOLUME 10.8 fl (7.4-10.4); PLATELET 301 x1000/uL (130-400); RED CELL DISTRIBUTION WIDTH 15.9 % (11.6-14.6)
[2022-05-22 05:55] LABS: PHOSPHORUS 4.8 mg/dL (2.5-4.9)
[2022-05-22] MEDS: INSULIN LISPRO 100 UNITS/ML SUBCUT SCH ×4 (06:00→18:00)
[2022-05-22] MEDS: MEROPENEM 1,000 MG in SODIUM CHLORIDE 0.9% 100 ML IV SCH ×3 (06:29→21:51)
[2022-05-22] MEDS: GABAPENTIN SOLN 300MG/6ML UDC GT SCH ×3 (06:29→21:51)
[2022-05-22] MEDS ORDERED: POTASSIUM CHLORIDE 20MEQ/PACKET PO NR (07:45)
[2022-05-22] MEDS: AMLODIPINE 10MG TABLET PO SCH (09:00)
[2022-05-22] MEDS: LORATADINE 10MG TABLET PO SCH (09:07)
[2022-05-22] MEDS: METOLAZONE 2.5MG TABLET NG SCH ×2 (09:07→18:05)
[2022-05-22] MEDS: PANTOPRAZOLE SODIUM 40 MG/VIAL IV SCH ×2 (09:07→21:08)
[2022-05-22] MEDS: METHYLPREDNISOLONE SOD SUCC 40 MG/ML VIAL IV SCH ×2 (09:07→21:08)
[2022-05-22] MEDS ORDERED: PHENYLEPHRINE 100 MG in DEXT 5% WATER 240 ML IV PRN (09:30)
[2022-05-22] MEDS: INSULIN GLARGINE 100 UNITS/ML SUBCUT SCH ×2 (10:00→21:54)
[2022-05-22] MEDS: PAROXETINE HCL 10MG TABLET PO SCH (10:13)
[2022-05-22] MEDS ORDERED: VANCOMYCIN 750MG PREMIX 150 ML IV SCH (12:00)
[2022-05-22 12:03] LABS: PLATELET ESTIMATE NORMAL
[2022-05-22] MEDS: DEXTROSE 50% WATER 50ML SYRINGE IV PRN (12:51)
[2022-05-22] MEDS ORDERED: VANCOMYCIN 750MG PREMIX 150 ML IV NR (18:00)
[2022-05-22] MEDS: MONTELUKAST SODIUM 10MG TABLET PO SCH (18:05)
[2022-05-22] MEDS: TRAZODONE HCL 50MG TABLET PO SCH (21:09)
[2022-05-22 21:28] LABS: CLARITY URINE TURBID (CLEAR); COLOR URINE ORANGE (YELLOW); KETONES URINE NEGATIVE (NEGATIVE); LEUKOCYTE ESTERASE URINE 2+ (NEGATIVE); NITRITE URINE POSITIVE (NEGATIVE); OCCULT BLOOD URINE 2+ (NEGATIVE); PROTEIN URINE 2+ (NEGATIVE); SPECIFIC GRAVITY URINE 1.031 (1.005-1.030); UROBILINOGEN URINE 0.2 E.U./dL (0.2-1.0)
[2022-05-23] VITALS (61 sets, daily range): BP systolic 85–154; BP diastolic 50–77
[2022-05-23] MEDS: IPRATROPIUM/ALBUTEROL 0.5-3(2.5)MG/3ML NEB HHN SCH ×6 (00:26→19:57)
[2022-05-23] MEDS: METOCLOPRAMIDE HCL 10MG/2ML VIAL IV SCH ×4 (00:33→18:49)
[2022-05-23] MEDS: VANCOMYCIN 1000MG/20ML ORAL SOLN PO SCH ×4 (00:33→18:49)
[2022-05-23] MEDS: BLOOD SUGAR DIAGNOSTIC STRIP TEST SCH ×2 (00:33→06:06)
[2022-05-23] MEDS: GABAPENTIN SOLN 300MG/6ML UDC GT SCH ×2 (06:05→15:00)
[2022-05-23] MEDS: MEROPENEM 1,000 MG in SODIUM CHLORIDE 0.9% 100 ML IV SCH ×2 (06:06→14:59)
[2022-05-23] MEDS: INSULIN LISPRO 100 UNITS/ML SUBCUT SCH ×2 (06:08)
[2022-05-23 07:33] LABS: MEAN CORPUSCULAR HEMOGLOBIN 29.1 pg (28.0-32.0); MEAN CORPUSCULAR VOLUME 86.1 fL (81.0-99.0); MEAN PLATELET VOLUME 10.3 fl (7.4-10.4); PLATELET 189 x1000/uL (130-400); RED CELL DISTRIBUTION WIDTH 16.7 % (11.6-14.6)
[2022-05-23 07:34] LABS: PHOSPHORUS 5.6 mg/dL (2.5-4.9)
[2022-05-23 07:38] LABS: HEMATOCRIT. 25.8 % (36.0-48.0); HEMOGLOBIN. 8.7 g/dL (12.0-16.0)
[2022-05-23] MEDS ORDERED: POTASSIUM CHLORIDE 20MEQ/PACKET PO SCH (07:45)
[2022-05-23 08:45] LABS: BG BASE EXCESS -6.6 mmol/L (-2.0-2.0); BG CARBOXYHEMOGLOBIN 0.3 % (0.5-1.5); BG DEOXYHEMOGLOBIN 1.6 % (0.0-5.0); BG FRACTION INSPIRED OXYGEN 55; BG HCO3 ACT 18.1 mmol/L (22.0-26.0); BG OXYGEN SATURATION 98.4 % (92.0-98.5); BG OXYHEMOGLOBIN 98.1 % (94.0-97.0); BG PCO2 32.8 mmHg (35.0-45.0); BG PH 7.359 (7.350-7.450); BG PO2 146.7 mmHg (75.0-100.0); BG SAMPLE SITE RIGHT RADIAL; BG TOTAL HEMOGLOBIN 8.6 g/dL (12.0-18.0); BG VENT MODE VENT - AC
[2022-05-23] MEDS ORDERED: POTASSIUM CHLORIDE INJ 60 MEQ in DEXT 5% WATER 500 ML IV SCH (09:00)
[2022-05-23] MEDS: AMLODIPINE 10MG TABLET PO SCH (09:00)
[2022-05-23] MEDS: PANTOPRAZOLE SODIUM 40 MG/VIAL IV SCH ×2 (09:16→23:59)
[2022-05-23] MEDS: METHYLPREDNISOLONE SOD SUCC 40 MG/ML VIAL IV SCH (09:16)
[2022-05-23] MEDS: LORATADINE 10MG TABLET PO SCH (09:16)
[2022-05-23] MEDS: PAROXETINE HCL 10MG TABLET PO SCH (09:17)
[2022-05-23] MEDS: INSULIN GLARGINE 100 UNITS/ML SUBCUT SCH (09:17)
[2022-05-23] MEDS: METOLAZONE 2.5MG TABLET NG SCH ×2 (09:18→18:49)
[2022-05-23 11:09] LABS: PLATELET ESTIMATE NORMAL
[2022-05-23] MEDS: DEXT 5%/0.45% NACL 1000ML 1,000 ML IV SCH (15:00)
[2022-05-23] MEDS: TRAZODONE HCL 50MG TABLET PO SCH (21:00)
[2022-05-24] VITALS (47 sets, daily range): BP systolic 90–170; BP diastolic 46–78
[2022-05-24] MEDS: MEROPENEM 1000MG in NORMAL SALINE 100ML IV SCH ×3 (00:01→21:25)
[2022-05-24] MEDS: TRAZODONE HCL 50MG TABLET PO SCH (00:01)
[2022-05-24] MEDS: GABAPENTIN SOLN 300MG/6ML UDC GT SCH ×4 (00:01→21:26)
[2022-05-24] MEDS: INSULIN GLARGINE 100 UNITS/ML SUBCUT SCH ×3 (00:03→23:01)
[2022-05-24] MEDS: VANCOMYCIN 1000MG/20ML ORAL SOLN PO SCH ×4 (00:04→17:20)
[2022-05-24] MEDS: METOCLOPRAMIDE HCL 10MG/2ML VIAL IV SCH ×4 (00:05→17:20)
[2022-05-24] MEDS: IPRATROPIUM/ALBUTEROL 0.5-3(2.5)MG/3ML NEB HHN SCH ×6 (00:06→20:23)
[2022-05-24 05:35] LABS: HEMATOCRIT. 24.5 % (36.0-48.0); HEMOGLOBIN. 7.9 g/dL (12.0-16.0); MEAN CORPUSCULAR HEMOGLOBIN 27.8 pg (28.0-32.0); MEAN CORPUSCULAR VOLUME 86.6 fL (81.0-99.0); MEAN PLATELET VOLUME 10.1 fl (7.4-10.4); PLATELET 188 x1000/uL (130-400); RED BLOOD CELL COUNT 2.83 mill/uL (4.2-5.4); RED CELL DISTRIBUTION WIDTH 16.5 % (11.6-14.6)
[2022-05-24] MEDS ORDERED: POTASSIUM CHLORIDE INJ 40 MEQ in DEXT 5% WATER 250 ML IV ONE (07:30)
[2022-05-24 08:07] LABS: BG BASE EXCESS -6.7 mmol/L (-2.0-2.0); BG CARBOXYHEMOGLOBIN 0.2 % (0.5-1.5); BG DEOXYHEMOGLOBIN 8.4 % (0.0-5.0); BG FRACTION INSPIRED OXYGEN 50; BG HCO3 ACT 18.8 mmol/L (22.0-26.0); BG METHEMOGLOBIN 0.3 % (0.0-1.5); BG OXYGEN SATURATION 91.6 % (92.0-98.5); BG OXYHEMOGLOBIN 91.1 % (94.0-97.0); BG PCO2 37.7 mmHg (35.0-45.0); BG PH 7.316 (7.350-7.450); BG PO2 66.9 mmHg (75.0-100.0); BG SAMPLE SITE RIGHT BRACHIAL; BG TOTAL HEMOGLOBIN 8.3 g/dL (12.0-18.0); BG VENT MODE VENT - AC
[2022-05-24] MEDS: PANTOPRAZOLE SODIUM 40 MG/VIAL IV SCH ×2 (08:18→21:25)
[2022-05-24] MEDS: METHYLPREDNISOLONE SOD SUCC 40 MG/ML VIAL IV SCH ×3 (08:18→21:26)
[2022-05-24] MEDS: KCL 20MEQ/100ML X 2 FOR TOTAL KCL 40MEQ/200ML IV SCH ×2 (08:19→10:50)
[2022-05-24] MEDS: DEXT 5%/0.45% NACL 1000ML 1,000 ML IV SCH (08:48)
[2022-05-24] MEDS ORDERED: POTASSIUM CHLORIDE 20MEQ/PACKET PO NR (09:45)
[2022-05-24] MEDS ORDERED: ALBUMIN HUMAN 25GM/100ML (25%) IV NR (10:15)
[2022-05-24] MEDS ORDERED: DEXTROSE 50% WATER 50ML SYRINGE IV PRN (10:15)
[2022-05-24] MEDS ORDERED: ALBUMIN HUMAN 12.5GM/50ML (25%) IV NR (12:00)
[2022-05-24] MEDS: BLOOD SUGAR DIAGNOSTIC STRIP TEST SCH ×3 (12:50→21:05)
[2022-05-24 13:27] LABS: PLATELET ESTIMATE NORMAL
[2022-05-24] MEDS ORDERED: AZITHROMYCIN 500 MG TABLET PO SCH (16:00)
[2022-05-24] MEDS: AZITHROMYCIN 500 MG in DEXT 5% WATER 250 ML IV SCH (17:20)
[2022-05-25] VITALS (45 sets, daily range): BP systolic 93–163; BP diastolic 58–87
[2022-05-25] MEDS: IPRATROPIUM/ALBUTEROL 0.5-3(2.5)MG/3ML NEB HHN SCH ×6 (00:24→20:53)
[2022-05-25] MEDS: METOCLOPRAMIDE HCL 10MG/2ML VIAL IV SCH ×4 (00:49→17:45)
[2022-05-25] MEDS: VANCOMYCIN 1000MG/20ML ORAL SOLN PO SCH ×4 (00:49→17:45)
[2022-05-25] MEDS: GABAPENTIN SOLN 300MG/6ML UDC GT SCH ×3 (06:01→22:23)
[2022-05-25] MEDS: DEXT 5%/0.45% NACL 1000ML 1,000 ML IV SCH (06:02)
[2022-05-25 06:34] LABS: INR 1.3; PROTHROMBIN TIME 14.1 sec (9.6-11.0)
[2022-05-25 06:50] LABS: PHOSPHORUS 5.7 mg/dL (2.5-4.9)
[2022-05-25] MEDS ORDERED: POTASSIUM CHLORIDE INJ 40 MEQ in DEXT 5% WATER 250 ML IV ONE (07:15)
[2022-05-25] MEDS: BLOOD SUGAR DIAGNOSTIC STRIP TEST SCH ×4 (07:50→21:00)
[2022-05-25] MEDS ORDERED: SODIUM BICARBONATE 4% (2.4MEQ) 5ML VIAL IV ONE (08:17)
[2022-05-25] MEDS ORDERED: LIDOCAINE HCL 1% 10 MG/ML 10ML VIAL ONE (08:17)
[2022-05-25 09:19] LABS: HEMATOCRIT. 28.7 % (36.0-48.0); HEMOGLOBIN. 9.4 g/dL (12.0-16.0); MEAN CORPUSCULAR HEMOGLOBIN 28.8 pg (28.0-32.0); MEAN CORPUSCULAR VOLUME 88.2 fL (81.0-99.0); MEAN PLATELET VOLUME 9.7 fl (7.4-10.4); PLATELET 193 x1000/uL (130-400); RED BLOOD CELL COUNT 3.25 mill/uL (4.2-5.4); RED CELL DISTRIBUTION WIDTH 16.7 % (11.6-14.6)
[2022-05-25] MEDS: INSULIN GLARGINE 100 UNITS/ML SUBCUT SCH ×2 (09:26→22:28)
[2022-05-25] MEDS ORDERED: POTASSIUM CHLORIDE 20MEQ/PACKET PO NR (09:45)
[2022-05-25] MEDS: MEROPENEM 1000MG in NORMAL SALINE 100ML IV SCH ×2 (09:59→22:23)
[2022-05-25] MEDS: KCL 20MEQ/100ML PREMIX 100 ML IV SCH ×2 (10:20→11:51)
[2022-05-25] MEDS: METHYLPREDNISOLONE SOD SUCC 40 MG/ML VIAL IV SCH ×2 (11:51→22:24)
[2022-05-25] MEDS: PANTOPRAZOLE SODIUM 40 MG/VIAL IV SCH ×2 (11:51→22:24)
[2022-05-25] MEDS ORDERED: ALBUMIN HUMAN 25GM/100ML (25%) IV NR (12:30)
[2022-05-25] MEDS: MICAFUNGIN 100 MG in SODIUM CHLORIDE 0.9% 100 ML IV SCH (13:46)
[2022-05-25] MEDS: AZITHROMYCIN 500 MG in DEXT 5% WATER 250 ML IV SCH (17:45)
[2022-05-26] VITALS (62 sets, daily range): BP systolic 73–147; BP diastolic 46–84
[2022-05-26] MEDS: IPRATROPIUM/ALBUTEROL 0.5-3(2.5)MG/3ML NEB HHN SCH ×6 (00:31→20:05)
[2022-05-26] MEDS: METOCLOPRAMIDE HCL 10MG/2ML VIAL IV SCH ×5 (01:23→23:38)
[2022-05-26] MEDS: DEXT 5%/0.45% NACL 1000ML 1,000 ML IV SCH ×2 (01:26→21:36)
[2022-05-26] MEDS: VANCOMYCIN 1000MG/20ML ORAL SOLN PO SCH ×5 (01:26→23:40)
[2022-05-26] MEDS: GABAPENTIN SOLN 300MG/6ML UDC GT SCH ×3 (05:37→21:36)
[2022-05-26 07:17] LABS: HEMATOCRIT. 25.2 % (36.0-48.0); HEMOGLOBIN. 8.3 g/dL (12.0-16.0); MEAN CORPUSCULAR HEMOGLOBIN 29.2 pg (28.0-32.0); MEAN CORPUSCULAR VOLUME 88.6 fL (81.0-99.0); PLATELET 172 x1000/uL (130-400); RED BLOOD CELL COUNT 2.84 mill/uL (4.2-5.4); RED CELL DISTRIBUTION WIDTH 17.2 % (11.6-14.6)
[2022-05-26 07:48] LABS: PLATELET ESTIMATE NORMAL
[2022-05-26] MEDS: BLOOD SUGAR DIAGNOSTIC STRIP TEST SCH ×4 (07:50→21:36)
[2022-05-26] MEDS ORDERED: POTASSIUM CHLORIDE 20MEQ/PACKET PO NR (08:00)
[2022-05-26 08:01] LABS: FOLIC ACID (FOLATE) SERUM 2.5 ng/mL (>5.38)
[2022-05-26] MEDS: MEROPENEM 1000MG in NORMAL SALINE 100ML IV SCH ×2 (08:52→21:36)
[2022-05-26] MEDS: METHYLPREDNISOLONE SOD SUCC 40 MG/ML VIAL IV SCH ×2 (08:53→21:36)
[2022-05-26] MEDS: PANTOPRAZOLE SODIUM 40 MG/VIAL IV SCH (08:53)
[2022-05-26] MEDS: INSULIN GLARGINE 100 UNITS/ML SUBCUT SCH ×2 (08:56→22:16)
[2022-05-26] MEDS ORDERED: POTASSIUM CHLORIDE INJ 60 MEQ in DEXT 5% WATER 500 ML IV NR (09:00)
[2022-05-26] MEDS ORDERED: KCL 20MEQ/100ML PREMIX 100 ML IV ONE (09:45)
[2022-05-26] MEDS: ACETAMINOPHEN 650MG/20.3ML UDC PO PRN (10:39)
[2022-05-26 11:28] LABS: BG BASE EXCESS -10.2 mmol/L (-2.0-2.0); BG CARBOXYHEMOGLOBIN 0.1 % (0.5-1.5); BG DEOXYHEMOGLOBIN 1.8 % (0.0-5.0); BG FRACTION INSPIRED OXYGEN 35; BG HCO3 ACT 15.1 mmol/L (22.0-26.0); BG METHEMOGLOBIN 0.3 % (0.0-1.5); BG OXYGEN SATURATION 98.2 % (92.0-98.5); BG OXYHEMOGLOBIN 97.8 % (94.0-97.0); BG PCO2 31.1 mmHg (35.0-45.0); BG PH 7.304 (7.350-7.450); BG PO2 137.5 mmHg (75.0-100.0); BG SAMPLE SITE RIGHT RADIAL; BG VENT MODE VENT - SIMV
[2022-05-26] MEDS: CITRIC ACID/SODIUM CITRATE SOLN 30ML UDC PO SCH ×2 (13:08→17:00)
[2022-05-26] MEDS: MICAFUNGIN 100 MG in SODIUM CHLORIDE 0.9% 100 ML IV SCH (13:08)
[2022-05-26] MEDS: DAPTOMYCIN 750 MG in SODIUM CHLORIDE 0.9% 50 ML IV SCH (14:08)
[2022-05-26 15:05] LABS: PLATELET ESTIMATE NORMAL
[2022-05-26] MEDS: AZITHROMYCIN 500 MG in DEXT 5% WATER 250 ML IV SCH (17:42)
[2022-05-27] VITALS (45 sets, daily range): BP systolic 108–169; BP diastolic 57–142
[2022-05-27 06:02] LABS: HEMATOCRIT. 25.1 % (36.0-48.0); HEMOGLOBIN. 8.1 g/dL (12.0-16.0); MEAN CORPUSCULAR HEMOGLOBIN 28.7 pg (28.0-32.0); MEAN CORPUSCULAR VOLUME 89.5 fL (81.0-99.0); MEAN PLATELET VOLUME 9.1 fl (7.4-10.4); PLATELET 197 x1000/uL (130-400); RED BLOOD CELL COUNT 2.81 mill/uL (4.2-5.4); RED CELL DISTRIBUTION WIDTH 17.2 % (11.6-14.6)
[2022-05-27] MEDS: VANCOMYCIN 1000MG/20ML ORAL SOLN PO SCH ×2 (06:04→13:38)
[2022-05-27] MEDS: METOCLOPRAMIDE HCL 10MG/2ML VIAL IV SCH ×3 (06:04→18:11)
[2022-05-27] MEDS: GABAPENTIN SOLN 300MG/6ML UDC GT SCH ×3 (06:04→22:01)
[2022-05-27] MEDS ORDERED: POTASSIUM CHLORIDE INJ 40 MEQ in DEXT 5% WATER 250 ML IV ONE (08:00)
[2022-05-27] MEDS: CITRIC ACID/SODIUM CITRATE SOLN 30ML UDC PO SCH ×3 (08:22→18:13)
[2022-05-27] MEDS: METHYLPREDNISOLONE SOD SUCC 40 MG/ML VIAL IV SCH ×2 (08:22→21:59)
[2022-05-27] MEDS: BLOOD SUGAR DIAGNOSTIC STRIP TEST SCH ×4 (08:23→21:59)
[2022-05-27] MEDS: IPRATROPIUM/ALBUTEROL 0.5-3(2.5)MG/3ML NEB HHN SCH ×5 (08:29→20:25)
[2022-05-27] MEDS: SODIUM BICARBONATE 100 MEQ in DEXTROSE 5% WATER 1,000 ML IV SCH (08:37)
[2022-05-27] MEDS: INSULIN GLARGINE 100 UNITS/ML SUBCUT SCH ×2 (09:34→21:59)
[2022-05-27 10:00] LABS: PLATELET ESTIMATE NORMAL
[2022-05-27] MEDS ORDERED: POTASSIUM CHLORIDE 20MEQ/PACKET PO NR ×2 (12:30→16:30)
[2022-05-27] MEDS: DAPTOMYCIN 750 MG in SODIUM CHLORIDE 0.9% 50 ML IV SCH (13:38)
[2022-05-27] MEDS: MICAFUNGIN 100 MG in SODIUM CHLORIDE 0.9% 100 ML IV SCH (14:07)
[2022-05-27] MEDS: HYDRALAZINE 20MG/ML VIAL IV PRN (23:23)
[2022-05-28] VITALS (43 sets, daily range): BP systolic 102–177; BP diastolic 65–109
[2022-05-28] MEDS: IPRATROPIUM/ALBUTEROL 0.5-3(2.5)MG/3ML NEB HHN SCH ×6 (00:30→21:03)
[2022-05-28] MEDS: SODIUM BICARBONATE 100 MEQ in DEXTROSE 5% WATER 1,000 ML IV SCH (03:10)
[2022-05-28 05:27] LABS: HEMATOCRIT. 27.8 % (36.0-48.0); MEAN CORPUSCULAR HEMOGLOBIN 28.6 pg (28.0-32.0); MEAN CORPUSCULAR VOLUME 88.4 fL (81.0-99.0); MEAN PLATELET VOLUME 9.6 fl (7.4-10.4); PLATELET 260 x1000/uL (130-400); RED BLOOD CELL COUNT 3.15 mill/uL (4.2-5.4)
[2022-05-28] MEDS: METOCLOPRAMIDE HCL 10MG/2ML VIAL IV SCH ×5 (06:00→23:15)
[2022-05-28] MEDS: GABAPENTIN SOLN 300MG/6ML UDC GT SCH ×3 (06:00→21:39)
[2022-05-28 06:27] LABS: PHOSPHORUS 4.7 mg/dL (2.5-4.9)
[2022-05-28] MEDS: BLOOD SUGAR DIAGNOSTIC STRIP TEST SCH ×4 (08:36→21:39)
[2022-05-28 08:37] LABS: PLATELET ESTIMATE NORMAL
[2022-05-28] MEDS: METHYLPREDNISOLONE SOD SUCC 40 MG/ML VIAL IV SCH ×2 (09:22→21:39)
[2022-05-28] MEDS: CITRIC ACID/SODIUM CITRATE SOLN 30ML UDC PO SCH ×3 (09:22→17:58)
[2022-05-28] MEDS: POTASSIUM CHLORIDE 20MEQ/PACKET PO SCH (09:22)
[2022-05-28] MEDS: FUROSEMIDE 40MG/4ML VIAL IVP SCH (09:22)
[2022-05-28] MEDS: INSULIN GLARGINE 100 UNITS/ML SUBCUT SCH ×2 (10:50→21:50)
[2022-05-28] MEDS ORDERED: DIATR MEGLU/DIATRIZOATE SOLN 30ML PO NR (12:30)
[2022-05-28] MEDS: DAPTOMYCIN 750 MG in SODIUM CHLORIDE 0.9% 50 ML IV SCH (12:52)
[2022-05-28] MEDS: MICAFUNGIN 100 MG in SODIUM CHLORIDE 0.9% 100 ML IV SCH (14:59)
[2022-05-29] VITALS (41 sets, daily range): BP systolic 109–168; BP diastolic 49–94
[2022-05-29] MEDS: IPRATROPIUM/ALBUTEROL 0.5-3(2.5)MG/3ML NEB HHN SCH ×5 (00:46→16:29)
[2022-05-29] MEDS: METOCLOPRAMIDE HCL 10MG/2ML VIAL IV SCH ×3 (05:09→17:29)
[2022-05-29] MEDS: GABAPENTIN SOLN 300MG/6ML UDC GT SCH ×3 (05:10→21:04)
[2022-05-29 06:14] LABS: HEMATOCRIT. 27.2 % (36.0-48.0); HEMOGLOBIN. 8.8 g/dL (12.0-16.0); MEAN CORPUSCULAR HEMOGLOBIN 28.5 pg (28.0-32.0); MEAN CORPUSCULAR VOLUME 88.1 fL (81.0-99.0); MEAN PLATELET VOLUME 9.8 fl (7.4-10.4); PLATELET 240 x1000/uL (130-400); RED BLOOD CELL COUNT 3.08 mill/uL (4.2-5.4); RED CELL DISTRIBUTION WIDTH 17.4 % (11.6-14.6)
[2022-05-29 06:57] LABS: PHOSPHORUS 4.8 mg/dL (2.5-4.9)
[2022-05-29] MEDS: BLOOD SUGAR DIAGNOSTIC STRIP TEST SCH ×3 (08:06→18:28)
[2022-05-29] MEDS: CITRIC ACID/SODIUM CITRATE SOLN 30ML UDC PO SCH ×3 (08:13→17:28)
[2022-05-29] MEDS: POTASSIUM CHLORIDE 20MEQ/PACKET PO SCH (08:13)
[2022-05-29] MEDS: METHYLPREDNISOLONE SOD SUCC 40 MG/ML VIAL IV SCH ×2 (08:13→20:14)
[2022-05-29] MEDS: FUROSEMIDE 40MG/4ML VIAL IVP SCH (08:13)
[2022-05-29 08:54] LABS: BG BASE EXCESS -3.2 mmol/L (-2.0-2.0); BG DEOXYHEMOGLOBIN 5.4 % (0.0-5.0); BG FRACTION INSPIRED OXYGEN 30; BG HCO3 ACT 21.2 mmol/L (22.0-26.0); BG METHEMOGLOBIN 0.2 % (0.0-1.5); BG OXYGEN SATURATION 94.6 % (92.0-98.5); BG OXYHEMOGLOBIN 94.4 % (94.0-97.0); BG PCO2 35.3 mmHg (35.0-45.0); BG PH 7.396 (7.350-7.450); BG PO2 77.1 mmHg (75.0-100.0); BG SAMPLE SITE RIGHT BRACHIAL; BG TOTAL HEMOGLOBIN 9.3 g/dL (12.0-18.0)
[2022-05-29 08:58] LABS: BG PRESSURE SUPPORT 10
[2022-05-29] MEDS: INSULIN GLARGINE 100 UNITS/ML SUBCUT SCH ×2 (09:37→21:05)
[2022-05-29 09:44] LABS: PLATELET ESTIMATE NORMAL
[2022-05-29] MEDS: ACETAMINOPHEN 650MG/20.3ML UDC PO PRN ×2 (11:30→17:29)
[2022-05-29 12:44] LABS: AMYLASE 87 IU/L (25-115)
[2022-05-29] MEDS: DAPTOMYCIN 750 MG in SODIUM CHLORIDE 0.9% 50 ML IV SCH (13:36)
[2022-05-29] MEDS: MICAFUNGIN 100 MG in SODIUM CHLORIDE 0.9% 100 ML IV SCH (15:01)
[2022-05-29 16:42] LABS: BG VENT MODE SIMV
[2022-05-29] MEDS ORDERED: TOTAL PARENTERAL NUTRITION 1,200 ML IV SCH (21:00)
[2022-05-30] VITALS (36 sets, daily range): BP systolic 113–161; BP diastolic 54–94
[2022-05-30] MEDS: METOCLOPRAMIDE HCL 10MG/2ML VIAL IV SCH ×4 (00:21→17:12)
[2022-05-30] MEDS: BLOOD SUGAR DIAGNOSTIC STRIP TEST SCH ×4 (00:21→18:30)
[2022-05-30 06:21] LABS: HEMATOCRIT. 29.6 % (36.0-48.0); HEMOGLOBIN. 9.3 g/dL (12.0-16.0); MEAN CORPUSCULAR HEMOGLOBIN 28.5 pg (28.0-32.0); MEAN CORPUSCULAR VOLUME 90.4 fL (81.0-99.0); MEAN PLATELET VOLUME 9.7 fl (7.4-10.4); PLATELET 297 x1000/uL (130-400); RED BLOOD CELL COUNT 3.27 mill/uL (4.2-5.4); RED CELL DISTRIBUTION WIDTH 18.1 % (11.6-14.6)
[2022-05-30] MEDS: GABAPENTIN SOLN 300MG/6ML UDC GT SCH ×3 (06:44→21:07)
[2022-05-30] MEDS: FUROSEMIDE 40MG/4ML VIAL IVP SCH (08:05)
[2022-05-30] MEDS: METHYLPREDNISOLONE SOD SUCC 40 MG/ML VIAL IV SCH ×2 (08:05→20:52)
[2022-05-30] MEDS: POTASSIUM CHLORIDE 20MEQ/PACKET PO SCH (08:05)
[2022-05-30] MEDS: CITRIC ACID/SODIUM CITRATE SOLN 30ML UDC PO SCH ×3 (08:05→17:12)
[2022-05-30] MEDS: INSULIN GLARGINE 100 UNITS/ML SUBCUT SCH ×2 (09:21→21:08)
[2022-05-30] MEDS ORDERED: SODIUM BICARBONATE 4% (2.4MEQ) 5ML VIAL IV ONE (10:31)
[2022-05-30] MEDS ORDERED: LIDOCAINE HCL 1% 10 MG/ML 10ML VIAL ONE (10:31)
[2022-05-30 10:36] LABS: NUCLEATED RED BLOOD CELLS 1 /100 WBC
[2022-05-30 10:37] LABS: PLATELET ESTIMATE NORMAL
[2022-05-30] MEDS: DAPTOMYCIN 750 MG in SODIUM CHLORIDE 0.9% 50 ML IV SCH (13:38)
[2022-05-30] MEDS: MICAFUNGIN 100 MG in SODIUM CHLORIDE 0.9% 100 ML IV SCH (15:07)
[2022-05-30] MEDS: PANTOPRAZOLE SODIUM 40 MG/VIAL IV SCH (17:12)
[2022-05-30] MEDS ORDERED: INSULIN LISPRO 100 UNITS/ML SUBCUT NR (18:45)
[2022-05-30] MEDS: TOTAL PARENTERAL NUTRITION 1,200 ML IV SCH (20:51)
[2022-05-31] VITALS (39 sets, daily range): BP systolic 96–148; BP diastolic 56–75
[2022-05-31] MEDS: METOCLOPRAMIDE HCL 10MG/2ML VIAL IV SCH ×4 (00:10→18:05)
[2022-05-31] MEDS: IPRATROPIUM/ALBUTEROL 0.5-3(2.5)MG/3ML NEB HHN PRN ×5 (00:12→19:55)
[2022-05-31] MEDS: BLOOD SUGAR DIAGNOSTIC STRIP TEST SCH ×4 (00:19→18:05)
[2022-05-31] MEDS: GABAPENTIN SOLN 300MG/6ML UDC GT SCH ×3 (05:36→21:11)
[2022-05-31 05:47] LABS: HEMATOCRIT. 26.9 % (36.0-48.0); HEMOGLOBIN. 8.4 g/dL (12.0-16.0); MEAN CORPUSCULAR HEMOGLOBIN 28.2 pg (28.0-32.0); MEAN CORPUSCULAR VOLUME 90.1 fL (81.0-99.0); MEAN PLATELET VOLUME 9.7 fl (7.4-10.4); PLATELET 259 x1000/uL (130-400); RED BLOOD CELL COUNT 2.98 mill/uL (4.2-5.4); RED CELL DISTRIBUTION WIDTH 18.3 % (11.6-14.6)
[2022-05-31 06:03] LABS: INR 1.3; PROTHROMBIN TIME 13.5 sec (9.6-11.0)
[2022-05-31] MEDS ORDERED: POTASSIUM CHLORIDE INJ 40 MEQ in DEXT 5% WATER 250 ML IV ONE (07:30)
[2022-05-31] MEDS: FUROSEMIDE 40MG/4ML VIAL IVP SCH (08:22)
[2022-05-31] MEDS: METHYLPREDNISOLONE SOD SUCC 40 MG/ML VIAL IV SCH ×2 (08:22→21:10)
[2022-05-31] MEDS: KCL 20MEQ/100ML X 2 FOR TOTAL KCL 40MEQ/200ML IV SCH ×2 (08:22→10:28)
[2022-05-31] MEDS: PANTOPRAZOLE SODIUM 40 MG/VIAL IV SCH ×2 (08:23→18:05)
[2022-05-31] MEDS: INSULIN LISPRO 100 UNITS/ML SUBCUT SCH ×3 (08:24→18:05)
[2022-05-31 10:28] LABS: PLATELET ESTIMATE NORMAL
[2022-05-31] MEDS: INSULIN GLARGINE 100 UNITS/ML SUBCUT SCH ×2 (10:29→21:12)
[2022-05-31] MEDS: DAPTOMYCIN 750 MG in SODIUM CHLORIDE 0.9% 50 ML IV SCH (13:45)
[2022-05-31] MEDS: MICAFUNGIN 100 MG in SODIUM CHLORIDE 0.9% 100 ML IV SCH (14:37)
[2022-05-31] MEDS: TOTAL PARENTERAL NUTRITION 1,200 ML IV SCH (20:05)
[2022-05-31] MEDS: FAT EMULSIONS 250 ML IV SCH (20:05)
[2022-05-31] MEDS ORDERED: FAT EMULSIONS 500 ML IV SCH (21:00)
[2022-06-01] VITALS (59 sets, daily range): BP systolic 118–159; BP diastolic 53–110
[2022-06-01] MEDS: IPRATROPIUM/ALBUTEROL 0.5-3(2.5)MG/3ML NEB HHN PRN ×4 (00:09→20:04)
[2022-06-01] MEDS: FAT EMULSIONS 250 ML IV SCH ×3 (00:37→20:36)
[2022-06-01] MEDS: INSULIN LISPRO 100 UNITS/ML SUBCUT SCH ×4 (00:47→17:46)
[2022-06-01] MEDS: METOCLOPRAMIDE HCL 10MG/2ML VIAL IV SCH ×4 (00:48→17:46)
[2022-06-01] MEDS: BLOOD SUGAR DIAGNOSTIC STRIP TEST SCH ×4 (00:49→17:46)
[2022-06-01] MEDS: GABAPENTIN SOLN 300MG/6ML UDC GT SCH ×3 (05:50→22:11)
[2022-06-01 06:32] LABS: HEMATOCRIT. 25.1 % (36.0-48.0); HEMOGLOBIN. 7.8 g/dL (12.0-16.0); MEAN CORPUSCULAR HEMOGLOBIN 28.6 pg (28.0-32.0); MEAN CORPUSCULAR VOLUME 91.8 fL (81.0-99.0); MEAN PLATELET VOLUME 9.5 fl (7.4-10.4); PLATELET 229 x1000/uL (130-400); RED BLOOD CELL COUNT 2.73 mill/uL (4.2-5.4); RED CELL DISTRIBUTION WIDTH 18.5 % (11.6-14.6)
[2022-06-01 06:38] LABS: CHLORIDE 118 mEq/L (98-107)
[2022-06-01 06:45] LABS: PHOSPHORUS 2.7 mg/dL (2.5-4.9)
[2022-06-01] MEDS: FUROSEMIDE 40MG/4ML VIAL IVP SCH (08:39)
[2022-06-01] MEDS: METHYLPREDNISOLONE SOD SUCC 40 MG/ML VIAL IV SCH ×2 (08:40→21:57)
[2022-06-01] MEDS: PANTOPRAZOLE SODIUM 40 MG/VIAL IV SCH ×2 (08:40→17:45)
[2022-06-01 08:41] LABS: PLATELET ESTIMATE NORMAL
[2022-06-01] MEDS: ACETAMINOPHEN 650MG/20.3ML UDC PO PRN (09:16)
[2022-06-01] MEDS: INSULIN GLARGINE 100 UNITS/ML SUBCUT SCH ×2 (09:17→22:12)
[2022-06-01] MEDS: DAPTOMYCIN 750 MG in SODIUM CHLORIDE 0.9% 50 ML IV SCH (12:39)
[2022-06-01] MEDS: MICAFUNGIN 100 MG in SODIUM CHLORIDE 0.9% 100 ML IV SCH (15:33)
[2022-06-01] MEDS: TOTAL PARENTERAL NUTRITION 1,200 ML IV SCH ×2 (21:00→21:57)
[2022-06-02] VITALS (40 sets, daily range): BP systolic 115–164; BP diastolic 58–101
[2022-06-02] MEDS: METOCLOPRAMIDE HCL 10MG/2ML VIAL IV SCH ×4 (00:41→18:11)
[2022-06-02] MEDS: INSULIN LISPRO 100 UNITS/ML SUBCUT SCH ×4 (01:14→18:12)
[2022-06-02] MEDS: BLOOD SUGAR DIAGNOSTIC STRIP TEST SCH ×4 (01:23→17:59)
[2022-06-02] MEDS: GABAPENTIN SOLN 300MG/6ML UDC GT SCH ×3 (05:10→21:07)
[2022-06-02] MEDS: FAT EMULSIONS 250 ML IV SCH ×2 (05:37→05:40)
[2022-06-02 05:43] LABS: HEMATOCRIT. 24.2 % (36.0-48.0); HEMOGLOBIN. 7.6 g/dL (12.0-16.0); MEAN CORPUSCULAR HEMOGLOBIN 28.7 pg (28.0-32.0); MEAN CORPUSCULAR VOLUME 91.2 fL (81.0-99.0); PLATELET 197 x1000/uL (130-400); RED BLOOD CELL COUNT 2.66 mill/uL (4.2-5.4); RED CELL DISTRIBUTION WIDTH 18.3 % (11.6-14.6)
[2022-06-02 07:06] LABS: PLATELET ESTIMATE NORMAL
[2022-06-02] MEDS: IPRATROPIUM/ALBUTEROL 0.5-3(2.5)MG/3ML NEB HHN PRN (08:29)
[2022-06-02] MEDS: METHYLPREDNISOLONE SOD SUCC 40 MG/ML VIAL IV SCH (09:00)
[2022-06-02] MEDS: PANTOPRAZOLE SODIUM 40 MG/VIAL IV SCH ×2 (09:00→18:11)
[2022-06-02] MEDS: INSULIN GLARGINE 100 UNITS/ML SUBCUT SCH ×2 (09:09→21:06)
[2022-06-02] MEDS: IPRATROPIUM/ALBUTEROL 0.5-3(2.5)MG/3ML NEB HHN SCH ×2 (13:56→20:59)
[2022-06-02] MEDS: MICAFUNGIN 100 MG in SODIUM CHLORIDE 0.9% 100 ML IV SCH (14:35)
[2022-06-02 15:09] LABS: 25-HYDROXY VITAMIN D3 20 ng/mL (.)
[2022-06-02] MEDS: TOTAL PARENTERAL NUTRITION 1,200 ML IV SCH (21:05)
[2022-06-03] VITALS (77 sets, daily range): BP systolic 77–137; BP diastolic 34–76
[2022-06-03] MEDS: METOCLOPRAMIDE HCL 10MG/2ML VIAL IV SCH ×4 (00:22→17:05)
[2022-06-03] MEDS: BLOOD SUGAR DIAGNOSTIC STRIP TEST SCH ×4 (00:23→18:21)
[2022-06-03] MEDS: INSULIN LISPRO 100 UNITS/ML SUBCUT SCH ×4 (00:23→18:21)
[2022-06-03 06:03] LABS: HEMATOCRIT. 22.9 % (36.0-48.0); HEMOGLOBIN. 7.4 g/dL (12.0-16.0); MEAN CORPUSCULAR HEMOGLOBIN 28.7 pg (28.0-32.0); MEAN CORPUSCULAR VOLUME 89.3 fL (81.0-99.0); MEAN PLATELET VOLUME 10.4 fl (7.4-10.4); PLATELET 183 x1000/uL (130-400); RED BLOOD CELL COUNT 2.57 mill/uL (4.2-5.4); RED CELL DISTRIBUTION WIDTH 17.8 % (11.6-14.6)
[2022-06-03] MEDS: GABAPENTIN SOLN 300MG/6ML UDC GT SCH ×3 (06:55→22:03)
[2022-06-03] MEDS: IPRATROPIUM/ALBUTEROL 0.5-3(2.5)MG/3ML NEB HHN SCH ×4 (08:35→20:12)
[2022-06-03 08:59] LABS: PLATELET ESTIMATE NORMAL
[2022-06-03] MEDS: PANTOPRAZOLE SODIUM 40 MG/VIAL IV SCH ×2 (09:20→16:52)
[2022-06-03] MEDS: INSULIN GLARGINE 100 UNITS/ML SUBCUT SCH ×2 (09:21→22:00)
[2022-06-03] MEDS: PHENYLEPHRINE 100 MG in DEXT 5% WATER 240 ML IV PRN (10:30)
[2022-06-03] MEDS: MIDODRINE HCL 5MG TABLET PO SCH ×3 (10:39→16:52)
[2022-06-03] MEDS ORDERED: ALBUMIN HUMAN 12.5GM/50ML (25%) IV NR (11:30)
[2022-06-03] MEDS: ACETAMINOPHEN 650MG/20.3ML UDC PO PRN (12:16)
[2022-06-03] MEDS ORDERED: DAPTOMYCIN 750 MG in SODIUM CHLORIDE 0.9% 50 ML IV SCH (14:00)
[2022-06-03] MEDS: KCL 20MEQ/100ML X 2 FOR TOTAL KCL 40MEQ/200ML IV SCH ×2 (14:43→16:52)
[2022-06-03] MEDS: MICAFUNGIN 100 MG in SODIUM CHLORIDE 0.9% 100 ML IV SCH (15:58)
[2022-06-03] MEDS: DEXTROSE 50% WATER 50ML SYRINGE IV PRN ×2 (18:22→22:05)
[2022-06-03] MEDS: TOTAL PARENTERAL NUTRITION 1,200 ML IV SCH (22:05)
[2022-06-04] VITALS (97 sets, daily range): BP systolic 66–156; BP diastolic 37–77
[2022-06-04] MEDS: INSULIN LISPRO 100 UNITS/ML SUBCUT SCH ×4 (00:45→18:41)
[2022-06-04] MEDS: BLOOD SUGAR DIAGNOSTIC STRIP TEST SCH ×5 (00:45→21:09)
[2022-06-04] MEDS: METOCLOPRAMIDE HCL 10MG/2ML VIAL IV SCH ×4 (00:49→17:19)
[2022-06-04] MEDS: IPRATROPIUM/ALBUTEROL 0.5-3(2.5)MG/3ML NEB HHN SCH ×4 (01:02→20:15)
[2022-06-04] MEDS: PHENYLEPHRINE 100 MG in DEXT 5% WATER 240 ML IV PRN (04:25)
[2022-06-04] MEDS: DEXTROSE 50% WATER 50ML SYRINGE IV PRN (05:29)
[2022-06-04] MEDS: GABAPENTIN SOLN 300MG/6ML UDC GT SCH ×3 (05:35→21:09)
[2022-06-04 06:10] LABS: HEMATOCRIT. 27.1 % (36.0-48.0); HEMOGLOBIN. 8.7 g/dL (12.0-16.0); MEAN CORPUSCULAR HEMOGLOBIN 28.6 pg (28.0-32.0); MEAN CORPUSCULAR VOLUME 88.6 fL (81.0-99.0); MEAN PLATELET VOLUME 9.4 fl (7.4-10.4); PLATELET 154 x1000/uL (130-400); RED BLOOD CELL COUNT 3.05 mill/uL (4.2-5.4)
[2022-06-04 06:20] LABS: INR 1.4; PROTHROMBIN TIME 14.2 sec (9.6-11.0)
[2022-06-04 06:24] LABS: PHOSPHORUS 1.5 mg/dL (2.5-4.9)
[2022-06-04 07:25] LABS: PLATELET ESTIMATE NORMAL
[2022-06-04] MEDS: PANTOPRAZOLE SODIUM 40 MG/VIAL IV SCH ×2 (08:25→17:19)
[2022-06-04] MEDS: MIDODRINE HCL 5MG TABLET PO SCH ×3 (08:26→18:31)
[2022-06-04] MEDS ORDERED: PHYTONADIONE 10MG/ML AMP SUBCUT SCH (09:00)
[2022-06-04] MEDS ORDERED: POTASSIUM PHOS,M-BASIC-D-BASIC 20 MMOL in DEXT 5% WATER 250 ML IV SCH (09:00)
[2022-06-04 09:55] LABS: BG CARBOXYHEMOGLOBIN 1.3 % (0.5-1.5); BG FRACTION INSPIRED OXYGEN 35; BG METHEMOGLOBIN 0.4 % (0.0-1.5); BG OXYGEN SATURATION 92.9 % (92.0-98.5); BG OXYHEMOGLOBIN 91.3 % (94.0-97.0); BG PCO2 32.7 mmHg (35.0-45.0); BG PH 7.405 (7.350-7.450); BG PO2 62.9 mmHg (75.0-100.0); BG SAMPLE SITE LEFT RADIAL; BG TOTAL HEMOGLOBIN 9.6 g/dL (12.0-18.0); BG VENT MODE VENT - SIMV
[2022-06-04] MEDS ORDERED: LIDOCAINE HCL 1% 10 MG/ML 10ML VIAL ONE (10:19)
[2022-06-04 11:36] LABS: HEPATITIS B SURFACE ANTIGEN NEGATIVE
[2022-06-04] MEDS: MICAFUNGIN 100 MG in SODIUM CHLORIDE 0.9% 100 ML IV SCH (15:19)
[2022-06-04] MEDS: DAPTOMYCIN 750 MG in SODIUM CHLORIDE 0.9% 50 ML IV SCH (17:19)
[2022-06-04] MEDS: MEROPENEM 500 MG in SODIUM CHLORIDE 0.9% 50 ML IV SCH (18:48)
[2022-06-04] MEDS ORDERED: FAT EMULSIONS 250 ML IV SCH (20:00)
[2022-06-04] MEDS ORDERED: FAT EMULSIONS 500 ML IV SCH (21:00)
[2022-06-04] MEDS: FAT EMULSIONS 500 ML IV SCH (21:08)
[2022-06-04] MEDS: TOTAL PARENTERAL NUTRITION 1,200 ML IV SCH (21:10)
[2022-06-05] VITALS (80 sets, daily range): BP systolic 76–153; BP diastolic 35–100
[2022-06-05] MEDS ORDERED: FAT EMULSIONS 250 ML IV SCH
[2022-06-05] MEDS: BLOOD SUGAR DIAGNOSTIC STRIP TEST SCH ×8 (00:06→21:30)
[2022-06-05] MEDS: METOCLOPRAMIDE HCL 10MG/2ML VIAL IV SCH ×4 (00:10→17:08)
[2022-06-05] MEDS: INSULIN LISPRO 100 UNITS/ML SUBCUT SCH ×4 (00:11→18:56)
[2022-06-05] MEDS: PHENYLEPHRINE 100 MG in DEXT 5% WATER 240 ML IV PRN (00:11)
[2022-06-05] MEDS: IPRATROPIUM/ALBUTEROL 0.5-3(2.5)MG/3ML NEB HHN SCH ×4 (02:05→20:30)
[2022-06-05] MEDS ORDERED: MORPHINE SULFATE 2 MG/ML CPJ (NOT FOR IM USE) IV NR (03:30)
[2022-06-05] MEDS: GABAPENTIN SOLN 300MG/6ML UDC GT SCH ×3 (05:09→21:30)
[2022-06-05] MEDS: MEROPENEM 500 MG in SODIUM CHLORIDE 0.9% 50 ML IV SCH ×2 (05:11→17:07)
[2022-06-05 06:10] LABS: BASOPHILS % 0.4 % (0.0-2.0); EOSINOPHILS % 1.1 % (0.0-5.0); HEMATOCRIT. 24.8 % (36.0-48.0); HEMOGLOBIN. 8.7 g/dL (12.0-16.0); LYMPHOCYTES % 8.1 % (20.0-50.0); MEAN CORPUSCULAR HEMOGLOBIN 31.4 pg (28.0-32.0); MEAN PLATELET VOLUME 10.3 fl (7.4-10.4); MONOCYTES % 2.9 % (2.0-8.0); NEUTROPHILS % 87.5 % (40.0-76.0); PLATELET 129 x1000/uL (130-400); RED BLOOD CELL COUNT 2.76 mill/uL (4.2-5.4); RED CELL DISTRIBUTION WIDTH 17.5 % (11.6-14.6)
[2022-06-05 07:17] LABS: PHOSPHORUS 1.6 mg/dL (2.5-4.9)
[2022-06-05] MEDS: PANTOPRAZOLE SODIUM 40 MG/VIAL IV SCH ×2 (08:01→17:08)
[2022-06-05] MEDS: MIDODRINE HCL 5MG TABLET PO SCH ×3 (08:01→17:08)
[2022-06-05] MEDS ORDERED: DIAZEPAM 5 MG/ML 2ML CPJ IV PRN (09:15)
[2022-06-05] MEDS: DIAZEPAM 5 MG/ML 2ML CPJ IV PRN (09:17)
[2022-06-05] MEDS ORDERED: MAGNESIUM 2 G PREMIX 50 ML IV SCH (10:00)
[2022-06-05] MEDS ORDERED: POTASSIUM PHOS,M-BASIC-D-BASIC 30 MMOL in DEXT 5% WATER 500 ML IV SCH (10:00)
[2022-06-05] MEDS ORDERED: MAGNESIUM 2 G PREMIX 50 ML IV NR (13:00)
[2022-06-05] MEDS: ACETAMINOPHEN 650MG/20.3ML UDC PO PRN (13:04)
[2022-06-05] MEDS: MICAFUNGIN 100 MG in SODIUM CHLORIDE 0.9% 100 ML IV SCH (14:04)
[2022-06-05] MEDS: TOTAL PARENTERAL NUTRITION 1,200 ML IV SCH (21:32)
[2022-06-06] VITALS (57 sets, daily range): BP systolic 68–162; BP diastolic 46–96
[2022-06-06] MEDS: BLOOD SUGAR DIAGNOSTIC STRIP TEST SCH ×5 (01:26→18:56)
[2022-06-06] MEDS: METOCLOPRAMIDE HCL 10MG/2ML VIAL IV SCH ×4 (01:31→18:56)
[2022-06-06] MEDS: INSULIN LISPRO 100 UNITS/ML SUBCUT SCH ×4 (01:32→18:57)
[2022-06-06] MEDS: ACETAMINOPHEN 650MG/20.3ML UDC PO PRN (01:44)
[2022-06-06] MEDS: IPRATROPIUM/ALBUTEROL 0.5-3(2.5)MG/3ML NEB HHN SCH ×4 (02:26→20:24)
[2022-06-06 05:34] LABS: HEMATOCRIT. 22.8 % (36.0-48.0); HEMOGLOBIN. 7.4 g/dL (12.0-16.0); MEAN CORPUSCULAR HEMOGLOBIN 29.1 pg (28.0-32.0); MEAN CORPUSCULAR VOLUME 89.5 fL (81.0-99.0); MEAN PLATELET VOLUME 10.8 fl (7.4-10.4); PLATELET 89 x1000/uL (130-400); RED BLOOD CELL COUNT 2.55 mill/uL (4.2-5.4); RED CELL DISTRIBUTION WIDTH 17.8 % (11.6-14.6)
[2022-06-06 06:00] LABS: PHOSPHORUS 2.9 mg/dL (2.5-4.9)
[2022-06-06] MEDS: GABAPENTIN SOLN 300MG/6ML UDC GT SCH ×3 (06:33→22:31)
[2022-06-06] MEDS: MEROPENEM 500 MG in SODIUM CHLORIDE 0.9% 50 ML IV SCH ×2 (06:34→18:55)
[2022-06-06] MEDS: DIAZEPAM 5 MG/ML 2ML CPJ IV PRN (06:47)
[2022-06-06 08:32] LABS: BG BASE EXCESS 1.3 mmol/L (-2.0-2.0); BG CARBOXYHEMOGLOBIN 0.2 % (0.5-1.5); BG DEOXYHEMOGLOBIN 5.2 % (0.0-5.0); BG FRACTION INSPIRED OXYGEN 70; BG HCO3 ACT 26.6 mmol/L (22.0-26.0); BG METHEMOGLOBIN 0.3 % (0.0-1.5); BG OXYGEN SATURATION 94.8 % (92.0-98.5); BG OXYHEMOGLOBIN 94.3 % (94.0-97.0); BG PCO2 45.6 mmHg (35.0-45.0); BG PH 7.383 (7.350-7.450); BG PO2 75.7 mmHg (75.0-100.0); BG SAMPLE SITE RIGHT RADIAL; BG TOTAL HEMOGLOBIN 7.9 g/dL (12.0-18.0); BG VENT MODE VENT - AC
[2022-06-06] MEDS: PANTOPRAZOLE SODIUM 40 MG/VIAL IV SCH ×2 (09:58→18:55)
[2022-06-06] MEDS: MIDODRINE HCL 5MG TABLET PO SCH ×3 (09:58→18:56)
[2022-06-06 10:28] LABS: INR 1.2
[2022-06-06 12:00] LABS: PLATELET ESTIMATE DECREASED
[2022-06-06] MEDS: MIDAZOLAM HCL 2 MG/2 ML VIAL IV PRN ×2 (12:13→20:51)
[2022-06-06] MEDS: IPRATROPIUM/ALBUTEROL 0.5-3(2.5)MG/3ML NEB HHN PRN ×2 (12:25→16:19)
[2022-06-06] MEDS: MICAFUNGIN 100 MG in SODIUM CHLORIDE 0.9% 100 ML IV SCH (14:00)
[2022-06-06] MEDS: DAPTOMYCIN 750 MG in SODIUM CHLORIDE 0.9% 50 ML IV SCH (18:56)
[2022-06-06] MEDS: TOTAL PARENTERAL NUTRITION 2,000 ML IV SCH (20:52)
[2022-06-06] MEDS: TOTAL PARENTERAL NUTRITION 1,200 ML IV SCH (21:00)
[2022-06-06 21:09] LABS: HEMOGLOBIN 9.1 g/dL (12.0-16.0)
[2022-06-06 21:19] LABS: INR 1.2
[2022-06-07] VITALS (54 sets, daily range): BP systolic 69–144; BP diastolic 42–99
[2022-06-07] MEDS: BLOOD SUGAR DIAGNOSTIC STRIP TEST SCH ×4 (00:34→17:52)
[2022-06-07] MEDS: METOCLOPRAMIDE HCL 10MG/2ML VIAL IV SCH ×4 (00:39→17:50)
[2022-06-07] MEDS: INSULIN LISPRO 100 UNITS/ML SUBCUT SCH ×4 (00:49→17:52)
[2022-06-07] MEDS: IPRATROPIUM/ALBUTEROL 0.5-3(2.5)MG/3ML NEB HHN SCH ×4 (01:55→20:18)
[2022-06-07] MEDS: MIDAZOLAM HCL 2 MG/2 ML VIAL IV PRN (06:01)
[2022-06-07] MEDS: GABAPENTIN SOLN 300MG/6ML UDC GT SCH ×3 (06:02→21:00)
[2022-06-07] MEDS: MEROPENEM 500 MG in SODIUM CHLORIDE 0.9% 50 ML IV SCH ×2 (06:09→17:50)
[2022-06-07 06:16] LABS: INR 1.2; PROTHROMBIN TIME 12.8 sec (9.6-11.0)
[2022-06-07] MEDS: MIDODRINE HCL 5MG TABLET PO SCH ×3 (09:14→17:50)
[2022-06-07] MEDS: PANTOPRAZOLE SODIUM 40 MG/VIAL IV SCH ×2 (09:14→17:52)
[2022-06-07 11:28] LABS: BG BASE EXCESS -3.2 mmol/L (-2.0-2.0); BG CARBOXYHEMOGLOBIN 0.3 % (0.5-1.5); BG DEOXYHEMOGLOBIN 3.6 % (0.0-5.0); BG FRACTION INSPIRED OXYGEN 100; BG HCO3 ACT 23.9 mmol/L (22.0-26.0); BG METHEMOGLOBIN 0.1 % (0.0-1.5); BG OXYGEN SATURATION 96.4 % (92.0-98.5); BG PCO2 52.8 mmHg (35.0-45.0); BG PH 7.273 (7.350-7.450); BG SAMPLE SITE RIGHT RADIAL; BG TOTAL HEMOGLOBIN 9.9 g/dL (12.0-18.0); BG TOTAL RESPIRATORY RATE 30 b/min; BG VENT MODE VENT - AC
[2022-06-07] MEDS ORDERED: ALBUMIN HUMAN 25GM/100ML (25%) IV NR (11:30)
[2022-06-07] MEDS ORDERED: MIDAZOLAM 100MG/100ML PMX 100 ML IV PRN (12:00)
[2022-06-07] MEDS ORDERED: FENTANYL 2500MCG/250ML PMX 250 ML IV ONE (12:00)
[2022-06-07] MEDS ORDERED: FENTANYL CITRATE 2,500 MCG in SODIUM CHLORIDE 0.9% 200 ML IV PRN (12:15)
[2022-06-07] MEDS: PHENYLEPHRINE 100 MG in DEXT 5% WATER 240 ML IV PRN (13:18)
[2022-06-07 13:26] LABS: BG BASE EXCESS -2.7 mmol/L (-2.0-2.0); BG CARBOXYHEMOGLOBIN 0.1 % (0.5-1.5); BG DEOXYHEMOGLOBIN 3.4 % (0.0-5.0); BG FRACTION INSPIRED OXYGEN 100; BG HCO3 ACT 23.9 mmol/L (22.0-26.0); BG METHEMOGLOBIN 0.3 % (0.0-1.5); BG OXYGEN SATURATION 96.6 % (92.0-98.5); BG OXYHEMOGLOBIN 96.2 % (94.0-97.0); BG PCO2 50.7 mmHg (35.0-45.0); BG PH 7.292 (7.350-7.450); BG PO2 91.7 mmHg (75.0-100.0); BG SAMPLE SITE RIGHT RADIAL; BG TOTAL RESPIRATORY RATE 36 b/min; BG VENT MODE AC/PRVC
[2022-06-07] MEDS: MICAFUNGIN 100 MG in SODIUM CHLORIDE 0.9% 100 ML IV SCH (14:20)
[2022-06-07] MEDS ORDERED: DIAZEPAM 5 MG/ML 2ML CPJ IV PRN (15:45)
[2022-06-07] MEDS: FAT EMULSIONS 500 ML IV SCH (20:29)
[2022-06-07] MEDS: TOTAL PARENTERAL NUTRITION 2,000 ML IV SCH (20:31)
[2022-06-07] MEDS: ACETAMINOPHEN 650MG/20.3ML UDC PO PRN (21:52)
[2022-06-08] VITALS (105 sets, daily range): BP systolic 47–183; BP diastolic 18–89
[2022-06-08] MEDS: NOREPINEPHRINE 32 MG in DEXT 5% WATER 218 ML IV PRN (00:14)
[2022-06-08] MEDS: BLOOD SUGAR DIAGNOSTIC STRIP TEST SCH ×4 (01:00→17:59)
[2022-06-08] MEDS: METOCLOPRAMIDE HCL 10MG/2ML VIAL IV SCH ×4 (01:06→17:18)
[2022-06-08] MEDS: INSULIN LISPRO 100 UNITS/ML SUBCUT SCH ×4 (01:23→17:59)
[2022-06-08] MEDS: IPRATROPIUM/ALBUTEROL 0.5-3(2.5)MG/3ML NEB HHN SCH ×2 (02:27→08:33)
[2022-06-08 03:00] LABS: BG BASE EXCESS -9.1 mmol/L (-2.0-2.0); BG CARBOXYHEMOGLOBIN 0.6 % (0.5-1.5); BG DEOXYHEMOGLOBIN 7.8 % (0.0-5.0); BG FRACTION INSPIRED OXYGEN 100; BG HCO3 ACT 19.6 mmol/L (22.0-26.0); BG OXYGEN SATURATION 92.2 % (92.0-98.5); BG OXYHEMOGLOBIN 91.6 % (94.0-97.0); BG PCO2 54.6 mmHg (35.0-45.0); BG PH 7.173 (7.350-7.450); BG PO2 66.8 mmHg (75.0-100.0); BG SAMPLE SITE RIGHT RADIAL; BG VENT MODE VENT - AC
[2022-06-08] MEDS ORDERED: DOPAMINE 400MG/250ML PREMIX 250 ML IV ONE (03:45)
[2022-06-08] MEDS: VASOPRESSIN 20 UNIT in SODIUM CHLORIDE 0.9% 99 ML IV PRN ×2 (04:04→12:06)
[2022-06-08] MEDS: DOPAMINE 400MG/250ML PREMIX 250 ML IV PRN ×3 (04:24→13:01)
[2022-06-08 05:29] LABS: BASOPHILS % 0.7 % (0.0-2.0); HEMATOCRIT. 33.4 % (36.0-48.0); HEMOGLOBIN. 10.3 g/dL (12.0-16.0); LYMPHOCYTES % 13.2 % (20.0-50.0); MEAN CORPUSCULAR HEMOGLOBIN 29.1 pg (28.0-32.0); MEAN CORPUSCULAR VOLUME 94.4 fL (81.0-99.0); MEAN PLATELET VOLUME 10.6 fl (7.4-10.4); MONOCYTES % 2.3 % (2.0-8.0); NEUTROPHILS % 81.8 % (40.0-76.0); PLATELET 102 x1000/uL (130-400); RED BLOOD CELL COUNT 3.54 mill/uL (4.2-5.4); RED CELL DISTRIBUTION WIDTH 18.2 % (11.6-14.6)
[2022-06-08] MEDS: GABAPENTIN SOLN 300MG/6ML UDC GT SCH ×2 (05:30→14:06)
[2022-06-08] MEDS: MEROPENEM 500 MG in SODIUM CHLORIDE 0.9% 50 ML IV SCH ×2 (05:31→17:20)
[2022-06-08] MEDS ORDERED: SODIUM POLYSTYRENE SULFONATE 15 G/60 ML BOT PO NR (06:00)
[2022-06-08 06:43] LABS: BG BASE EXCESS -10.2 mmol/L (-2.0-2.0); BG CARBOXYHEMOGLOBIN 0.5 % (0.5-1.5); BG DEOXYHEMOGLOBIN 14.3 % (0.0-5.0); BG FRACTION INSPIRED OXYGEN 100; BG HCO3 ACT 18.6 mmol/L (22.0-26.0); BG METHEMOGLOBIN 0.3 % (0.0-1.5); BG OXYGEN SATURATION 85.6 % (92.0-98.5); BG OXYHEMOGLOBIN 84.9 % (94.0-97.0); BG PCO2 54.2 mmHg (35.0-45.0); BG PH 7.154 (7.350-7.450); BG PO2 54.4 mmHg (75.0-100.0); BG TOTAL HEMOGLOBIN 11.4 g/dL (12.0-18.0); BG VENT MODE VENT - AC
[2022-06-08] MEDS ORDERED: SODIUM BICARBONATE 8.4% 1 MEQ/ML 50ML SYR IV NR (07:42)
[2022-06-08] MEDS: PANTOPRAZOLE SODIUM 40 MG/VIAL IV SCH ×2 (08:38→17:19)
[2022-06-08] MEDS: MIDODRINE HCL 5MG TABLET PO SCH ×3 (08:38→17:18)
[2022-06-08 09:36] LABS: BG BASE EXCESS -3.2 mmol/L (-2.0-2.0); BG CARBOXYHEMOGLOBIN 0.4 % (0.5-1.5); BG DEOXYHEMOGLOBIN 7.7 % (0.0-5.0); BG FRACTION INSPIRED OXYGEN 100; BG HCO3 ACT 22.1 mmol/L (22.0-26.0); BG METHEMOGLOBIN 0.3 % (0.0-1.5); BG OXYGEN SATURATION 92.2 % (92.0-98.5); BG OXYHEMOGLOBIN 91.6 % (94.0-97.0); BG PCO2 40.6 mmHg (35.0-45.0); BG PH 7.353 (7.350-7.450); BG PO2 60.1 mmHg (75.0-100.0); BG SAMPLE SITE LEFT RADIAL; BG TOTAL HEMOGLOBIN 11.3 g/dL (12.0-18.0); BG VENT MODE PRVC
[2022-06-08] MEDS ORDERED: EPINEPHRINE 0.1MG/ML (1:10,000) 10ML SYR ONE (09:52)
[2022-06-08] MEDS ORDERED: SODIUM BICARBONATE 8.4% 1 MEQ/ML 50ML SYR IV ONE (09:52)
[2022-06-08] MEDS ORDERED: ATROPINE SULFATE 1MG/10ML SYR ONE (09:52)
[2022-06-08] MEDS ORDERED: AMIODARONE HCL 50MG/ML 3ML VIAL IV ONE (09:52)
[2022-06-08] MEDS ORDERED: DEXTROSE 50% WATER 50ML SYRINGE IV ONE (09:52)
[2022-06-08] MEDS ORDERED: ADENOSINE 3 MG/ML 2ML VIAL IV ONE (09:52)
[2022-06-08] MEDS ORDERED: CALCIUM CHLORIDE 1GM/10ML SYR IV ONE (09:52)
[2022-06-08] MEDS: PHENYLEPHRINE 100 MG in DEXT 5% WATER 240 ML IV PRN ×2 (10:06→17:18)
[2022-06-08] MEDS ORDERED: SODIUM BICARBONATE 150 MEQ in DEXTROSE 5% WATER 1,000 ML IV SCH (11:00)
[2022-06-08] MEDS: IPRATROPIUM BROMIDE (0.02%) 0.5MG/2.5ML NEB HHN SCH ×2 (12:28→16:15)
[2022-06-08] MEDS ORDERED: HYDROCORTISONE SOD SUCCINATE 100 MG/2 ML VIAL IV SCH (14:00)
[2022-06-08] MEDS: MICAFUNGIN 100 MG in SODIUM CHLORIDE 0.9% 100 ML IV SCH (14:06)
[2022-06-08] MEDS ORDERED: ACETAMINOPHEN 650MG/20.3ML UDC PO PRN (17:15)
[2022-06-08] MEDS ORDERED: TOTAL PARENTERAL NUTRITION 2,000 ML IV SCH ×3 (21:00)
== END 2022-06-09 | DRG 5 ==
LOC: ER 15:07 → EDBEDREQ 17:45 → EDBEDREQTM 17:45 → ENRESERV 19:22 → 6WST 22:44 → 5EST 04-30 18:10 → MICUSO 04-30 23:00 → MICUNO 05-15 05:00 → 5EST 05-15 22:00 → CVICU 05-21 18:01
PROVIDERS: ADMIT Internal Medicine; ATTEND Internal Medicine
PROC: 0F903ZZ Drainage of Liver, Percutaneous Approach (ICD-10-PCS; 2022-04-30)
PROC: 5A09357 Assistance with Respiratory Ventilation, Less than 24 Consecutive Hours, Continuous Positive Airway Pressure (ICD-10-PCS; 2022-04-30)
PROC: 0BH17EZ Insertion of Endotracheal Airway into Trachea, Via Natural or Artificial Opening (ICD-10-PCS; 2022-05-01)
PROC: 5A1955Z Respiratory Ventilation, Greater than 96 Consecutive Hours (ICD-10-PCS; 2022-05-01)
PROC: 06HY33Z Insertion of Infusion Device into Lower Vein, Percutaneous Approach (ICD-10-PCS; 2022-05-01)
PROC: B54CZZA Ultrasonography of Left Lower Extremity Veins, Guidance (ICD-10-PCS; 2022-05-01)
PROC: 5A12012 Performance of Cardiac Output, Single, Manual (ICD-10-PCS; 2022-05-01)
PROC: 02HV33Z Insertion of Infusion Device into Superior Vena Cava, Percutaneous Approach (ICD-10-PCS; 2022-05-02)
PROC: B548ZZA Ultrasonography of Superior Vena Cava, Guidance (ICD-10-PCS; 2022-05-02)
PROC: 30233N1 Transfusion of Nonautologous Red Blood Cells into Peripheral Vein, Percutaneous Approach (ICD-10-PCS; 2022-05-05)
PROC: 0W9B3ZZ Drainage of Left Pleural Cavity, Percutaneous Approach (ICD-10-PCS; 2022-05-10)
PROC: 5A1955Z Respiratory Ventilation, Greater than 96 Consecutive Hours (ICD-10-PCS; principal; 2022-05-15)
PROC: 0B110F4 Bypass Trachea to Cutaneous with Tracheostomy Device, Open Approach (ICD-10-PCS; 2022-05-15)
PROC: 0W9G3ZZ Drainage of Peritoneal Cavity, Percutaneous Approach (ICD-10-PCS; 2022-05-25)
PROC: 0W9G3ZZ Drainage of Peritoneal Cavity, Percutaneous Approach (ICD-10-PCS; 2022-05-30)
PROC: 0F903ZZ Drainage of Liver, Percutaneous Approach (ICD-10-PCS; 2022-05-30)
PROC: 02HV33Z Insertion of Infusion Device into Superior Vena Cava, Percutaneous Approach (ICD-10-PCS; 2022-06-04)
PROC: B548ZZA Ultrasonography of Superior Vena Cava, Guidance (ICD-10-PCS; 2022-06-04)
PROC: 5A12012 Performance of Cardiac Output, Single, Manual (ICD-10-PCS; 2022-06-08)
PROC: 5A2204Z Restoration of Cardiac Rhythm, Single (ICD-10-PCS; 2022-06-08)
PROC: 5A12012 Performance of Cardiac Output, Single, Manual (ICD-10-PCS; 2022-06-08)
DX: A41.81 Sepsis due to Enterococcus (principal); N17.0 Acute kidney failure with tubular necrosis; R65.21 Severe sepsis with septic shock; K65.1 Peritoneal abscess; K75.0 Abscess of liver; D84.9 Immunodeficiency, unspecified; G92.8 Other toxic encephalopathy; J91.8 Pleural effusion in other conditions classified elsewhere; E43 Unspecified severe protein-calorie malnutrition; I46.9 Cardiac arrest, cause unspecified; J80 Acute respiratory distress syndrome; E11.649 Type 2 diabetes mellitus with hypoglycemia without coma; J18.9 Pneumonia, unspecified organism; R16.0 Hepatomegaly, not elsewhere classified; E87.1 Hypo-osmolality and hyponatremia; J44.0 Chronic obstructive pulmonary disease with (acute) lower respiratory infection; E11.42 Type 2 diabetes mellitus with diabetic polyneuropathy; M48.54XA Collapsed vertebra, not elsewhere classified, thoracic region, initial encounter for fracture; I13.10 Hypertensive heart and chronic kidney disease without heart failure, with stage 1 through stage 4 chronic kidney disease, or unspecified chronic kidney disease; K76.89 Other specified diseases of liver; M48.56XA Collapsed vertebra, not elsewhere classified, lumbar region, initial encounter for fracture; D64.9 Anemia, unspecified; D75.839 Thrombocytosis, unspecified; K20.90 Esophagitis, unspecified without bleeding; E11.65 Type 2 diabetes mellitus with hyperglycemia; B37.49 Other urogenital candidiasis; S30.0XXA Contusion of lower back and pelvis, initial encounter; X58.XXXA Exposure to other specified factors, initial encounter; E87.6 Hypokalemia; R18.8 Other ascites; R13.12 Dysphagia, oropharyngeal phase; K31.84 Gastroparesis; E11.43 Type 2 diabetes mellitus with diabetic autonomic (poly)neuropathy; N18.9 Chronic kidney disease, unspecified; E11.22 Type 2 diabetes mellitus with diabetic chronic kidney disease; R53.2 Functional quadriplegia; K85.90 Acute pancreatitis without necrosis or infection, unspecified; E83.41 Hypermagnesemia; E78.5 Hyperlipidemia, unspecified; J44.1 Chronic obstructive pulmonary disease with (acute) exacerbation; K82.4 Cholesterolosis of gallbladder; Z87.891 Personal history of nicotine dependence; Z86.73 Personal history of transient ischemic attack (TIA), and cerebral infarction without residual deficits; Z79.4 Long term (current) use of insulin; Z78.1 Physical restraint status; Y93.89 Activity, other specified; Y92.89 Other specified places as the place of occurrence of the external cause; Y99.8 Other external cause status; Z79.84 Long term (current) use of oral hypoglycemic drugs; Z68.36 Body mass index [BMI] 36.0-36.9, adult; Z20.822 Contact with and (suspected) exposure to COVID-19; R00.0 Tachycardia, unspecified; R19.7 Diarrhea, unspecified
CPT/HCPCS: 10030; 31500; 32555; 36415; 36556; 36573; 36600; 49083; 70551; 71045; 71250; 74018; 74176; 76604; 76705; 76770; 76937; 76942; 78580; 80048; 80053; 80061; 80076; 80202; 81003; 82040; 82105; 82140; 82150; 82270; 82306; 82375; 82465; 82533; 82550; 82570; 82575; 82607; 82728; 82746; 82805; 82962; 83036; 83540; 83550; 83605; 83615; 83735; 83880; 83930; 84100; 84132; 84134; 84145; 84156; 84300; 84443; 84478; 84484; 85014; 85018; 85025; 85027; 85044; 85049; 85379; 85384; 86705; 86709; 86803; 86850; 86900; 86920; 87045; 87070; 87077; 87106; 87186; 87340; 87426; 87449; 88108; 88312; 89055; 92950; 93005; 93306; 93970; 94002; 94003; 94640; 94660; 94664; 97110; 97161; 97163; 97165; 97167; 97530; 99285; A6261; C1725; C1752; C9113; C9803; J0153; J0282; J0360; J0456; J0461; J0696; J0878; J1265; J1650; J1720; J1815; J1940; J2185; J2248; J2250; J2270; J2370; J2704; J2765; J2920; J2930; J3010; J3370; J3430; J3475; J3480; J3490; J7030; J7042; J7050; J7060; J7070; J7512; J7608; J7626; P9016; P9047; Q9963; Q9967; A4315